=== PATIENT | female | born 1940 | race Caucasian/White ===

== ENCOUNTER 2022-08-05 22:45 | Emergency (ER) | payer MEDICARE ==
[2022-08-05] MEDS ORDERED: DIPH,PERTUS(ACELL)TETVAC-LF 0.5 ML VIAL IM ONE (22:50)
[2022-08-05] MEDS ORDERED: SODIUM CHLORIDE 0.9% 1,000 ML IV STA (22:53)
[2022-08-05] MEDS ORDERED: MORPHINE SULFATE 4 MG/ML SYRINGE IVP STA (23:25)
[2022-08-05 23:30] LABS: ALT 32 U/L (4-34); AST 134 U/L (14-36); African American GFR (CKD) >90 (>60 ml/min/1.73 sqM); Albumin 4.7 g/dL (3.5-5.0); Alcohol <10 mg/dL; Alkaline Phosphatase 77 U/L (38-126); Anion Gap 6 mmol/L; Blood Urea Nitrogen 35 mg/dL (7-17); Calcium 9.2 mg/dL (8.4-10.2); Carbon Dioxide 20 mmol/L (22-30); Chloride 114 mmol/L (98-107); Glucose 124 mg/dL (74-99); Non-African American GFR(CKD) 82 (>60 ml/min/1.73 sqM); Sodium 140 mmol/L (137-145); Total Bilirubin 3.2 mg/dL (0.2-1.3); Total Protein 8.7 g/dL (6.3-8.2)
[2022-08-05 23:31] LABS: Basophils % (A) 1 %; Eosinophils # (A) 0.2 k/uL (0-0.7); Eosinophils % (A) 3 %; HCT 40.6 % (34.0-46.0); HGB 12.5 gm/dL (11.4-16.0); Hypochromasia Moderate; Lymphocytes # (A) 0.9 k/uL (1.0-4.8); Lymphocytes % (A) 18 %; MCH 29.3 pg (25.0-35.0); MCHC 30.8 g/dL (31.0-37.0); Mean Platelet Volume 9.2; Monocytes # (A) 0.4 k/uL (0-1.0); Monocytes % (A) 8 %; Neutrophils # (A) 3.5 k/uL (1.3-7.7); Neutrophils % (A) 67 %; Platelet Count 162 k/uL (150-450); RBC 4.27 m/uL (3.80-5.40); RDW 15.1 % (11.5-15.5); WBC 5.3 k/uL (3.8-10.6)
--- NOTE | 2022-08-06 00:09 | CT ---
EXAMINATION TYPE: CT brain ricardo wo con DATE OF EXAM: 08/05/2022 COMPARISON: None HISTORY: Fall, Priority 2. CT DLP: 962.8 mGycm Automated exposure control for dose reduction was used. Images obtained of the brain and cervical spine with no contrast. There is cerebral cortical atrophy. There is no mass effect or midline shift. No sign of intracranial hemorrhage. There is mild patchy hypodensity in the periventricular white matter. The calvarium is i ntact. Skull base is intact. There is normal aeration of the mastoid sinuses. The cervical vertebra have normal alignment. There is narrowing of C5-6 disc space with spurring. Pos terior orbits are intact. Facet joints are intact. Skull base is intact. 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 No evidence of cervical spine fracture. Cerebral atrophy and chronic small vessel ischemia. No acute intracranial abnormality. No hemorrhage.
[2022-08-06 00:13] LABS: INR 1.4 (<1.2); Partial Thromboplastin Time 26.1 sec (22.0-30.0); Prothrombin Time 14.5 sec (9.0-12.0)
--- NOTE | 2022-08-06 00:13 | CT ---
EXAMINATION TYPE: CT facial bones wo con DATE OF EXAM: 08/05/2022 COMPARISON: None HISTORY: Fall, Priority 2. CT DLP: 962.8 mGycm Automated exposure control for dose reduction was used. Images obtained from the bottom of the mandible to the top of the frontal sinuses without contrast. The mandibular ring is intact. Temporomandibular joints are intact. There are some soft tissue air bu bbles along the anterior right temporal bone in the subcutaneous tissues. The maxilla is intact. No evidence of orbital blowout fracture. The zygomatic arches are intact. No e vidence of retro-orbital mass. The nasal bone is intact. There is fairly normal aeration of the paran yohan sinuses. IMPRESSION: No fracture. There is right anterior temporal scalp soft tissue air that could relate to laceration. Normal paranasal sinuses.
--- NOTE | 2022-08-06 00:19 | CT ---
EXAMINATION TYPE: CT ChestAbdPelvis w con DATE OF EXAM: 08/05/2022 COMPARISON: None HISTORY: Fall, Priority 2. CT DLP: 1722.6 mGycm Automated exposure control for dose reduction was used. CONTRAST: Performed with IV Contrast, patient injected with 019ta80 mL of Isovue 300. Images obtained from the thoracic inlet to the floor of the pelvis with IV contrast. There is moderate bilateral pleural effusions and larger on the right side. Heart is enlarged. There is pericardial effusion. There are no hilar masses. No mediastinal adenopathy. Thoracic aorta is inta ct. No aneurysm or dissection. The ascending aorta measures 3.6 cm. No filling defects in the pulmona ry arteries. No pneumothorax. There is atelectasis in both lower lung duran adjacent to the pleural fluid. Liver and spleen are intact. No pancreatic mass. While this are not dilated. Gallbladder appears norm al. There is no adrenal mass. Kidneys show satisfactory contrast opacification. No hydronephrosis. Ureter s are not dilated. No retroperitoneal adenopathy. Bladder distends smoothly. No inguinal hernia. No f ree fluid in the pelvis. There is some retained fecal material in the rectum that measures 6 cm. Ther e are numerous diverticula in the sigmoid colon. There is extensive colonic diverticulosis. No mesenteric edema. No ascites or free air. No sign of a bowel obstruction. Thoracic and lumbar vertebra appear intact. No compression fracture. The bony pelvis is intact. The h ip joints are intact. Sacroiliac joints are intact. No evidence of rib fracture. The shoulder joints appear intact. IMPRESSION: Cardiomegaly with moderate sized pleural effusions and basilar atelectasis that is consistent with ch ronic congestive heart failure. No evidence of pulmonary embolism. No fracture seen. No acute abnormality in the abdomen and pelvis. There is extensive colonic diverticulosis without div erticulitis. Mild constipation.
--- NOTE | 2022-08-06 00:22 | CT ---
EXAMINATION TYPE: CT thor lumbar spine w con DATE OF EXAM: 08/05/2022 COMPARISON: None HISTORY: Fall, Priority 2. CT DLP: 1722.6 mGycm Automated exposure control for dose reduction was used. CONTRAST: Performed with IV Contrast, patient injected with 100ml mL of Isovue 300. Images obtained from T1 to S1 vertebra with the IV contrast. The thoracic and lumbar vertebra have fairly normal spacing and alignment for the patient's age. No c ompression fracture. No paraspinal mass. There is moderate bilateral pleural effusions. The posterior ribs appear intact. No focal bone destruction. No evidence of any significant thoracic or lumbar spi nal stenosis. The sacroiliac joints appear intact. There is some degenerative mild hypertrophic spurring anteriorly in the lumbar spine and thoracic spi ne. IMPRESSION: Negative exam. No evidence of traumatic injury of the thoracic and lumbar spine. No fracture..
--- NOTE | 2022-08-06 01:45 | XR ---
EXAMINATION TYPE: XR femur RT DATE OF EXAM: 08/06/2022 COMPARISON: NONE HISTORY: Fall. Pain TECHNIQUE: 4 views FINDINGS: There is no evidence of fracture nor dislocation. Hip joint and knee joint appear intact. N o pathologic calcification. IMPRESSION: Negative right femur exam.
--- NOTE | 2022-08-06 02:49 | ED ---
General Adult HPI - General Chief complaint: Fall Stated complaint: Fall Time Seen by Provider: 08/05/22 22:49 Source: EMS, RN notes reviewed, old records reviewed Mode of arrival: EMS Limitations: altered mental status - History of Present Illness Initial comments: Patient is an 81-year-old female with past medical history for atrial fibrillation on blood thinners, dementia who presents after being found down next to her bed. Patient fell approximately 1 foot above standing onto the ground. No obvious injuries other than some abrasions to her face. Patient cannot provide any history. She is moving all 4 extremities. Unknown loss of consciousness. Patient is currently at her baseline mental status per EMS and nursing facility. Presents for further evaluation at this time. - Related Data Allergies Allergy/AdvReac Type Severity Reaction Status Date / Time No Known Allergies Allergy Verified 08/06/22 02:10 Review of Systems ROS Statement: Those systems with pertinent positive or pertinent negative responses have been documented in the HPI. ROS Other: All systems not noted in ROS Statement are negative. General Exam - General Exam Comments Initial Comments: General: Appears in mild distress, agitated. HEAD: Abrasions over the face, forehead, scalp. Negative weiss sign. Negative raccoon eyes. EYES: PERRLA, EOMI, conjunctiva normal, no discharge. Pupils are 2 mm and equal bilaterally. ENT: Hearing grossly intact, normal oropharynx. RESPIRATORY: Clear breath sounds bilaterally. No wheezes, rales, or rhonchi. C/V: Regular rate and rhythm. S1 and S2 auscultated, no edema, peripheral pulses 2+ and intact throughout ABD: Abdomen is soft, nondistended. Patient jumps in pain when touched her in any spot on her abdomen. No rebound tenderness. No guarding. No peritoneal signs. EXT: Normal range of motion, no obvious deformity. Moving all 4 extremities. Possible shortening and primary tender over the right hip. No pelvis instability. No midline spinal step-offs or deformities. Patient jumps when you press anywhere on her body. SKIN: Facial and scalp abrasions. NEURO: Alert and oriented times times one to 2 which is her baseline. Moving all 4 extremity is. GCS of 15. No focal deficits. Limitations: altered mental status Course Vital Signs 08/05/22 08/06/22 08/06/22 22:45 00:25 00:30 Temperature 96.9 F L Pulse Rate 113 H 105 H 102 H Respiratory 26 H 10 L 7 L Rate Blood Pressure 159/117 160/111 160/111 O2 Sat by Pulse 90 L 94 L Oximetry 08/06/22 08/06/22 08/06/22 00:40 01:10 01:20 Temperature Pulse Rate 101 H 114 H 102 H Respiratory 14 12 16 Rate Blood Pressure 160/111 152/123 156/132 O2 Sat by Pulse 93 L 92 L Oximetry 08/06/22 08/06/22 08/06/22 01:30 01:40 01:50 Temperature Pulse Rate 106 H 105 H 98 Respiratory 12 15 14 Rate Blood Pressure 156/132 160/110 145/107 O2 Sat by Pulse 90 L 92 L 89 L Oximetry 08/06/22 08/06/22 08/06/22 02:00 02:10 02:20 Temperature Pulse Rate 91 93 95 Respiratory 16 15 13 Rate Blood Pressure 145/107 157/101 168/104 O2 Sat by Pulse 88 L 89 L 93 L Oximetry 08/06/22 08/06/22 08/06/22 02:30 02:33 03:48 Temperature 97 F L 97.3 F L Pulse Rate 87 86 Respiratory 14 16 Rate Blood Pressure 168/104 125/95 O2 Sat by Pulse 91 L 97 Oximetry Medical Decision Making - Medical Decision Making Based on the patient's presentation and physical exam, she was made a priority 2 trauma activation due to fall from above standing on blood thinners. Patient has dementia and is unable to provide any history. No obvious injuries other than some facial abrasions. Generalized tenderness to palpation everywhere with no/low suspicion for injury. We will obtain CT imaging of the patient's body as well as right femur x-ray. Trauma labs will be obtained. Vital signs are within acceptable limits. Patient is agitated at this time and will be given a IV analgesia, tdap and [address] Mackay, trauma telecommunication equipment repairer, immediately called back and was in agreement with the plan. EKG showed known atrial fibrillation. Laboratory studies were within acceptable limits. Troponin is undetectable. Urinalysis is still pending. CT head and cervical spine revealed no acute intracranial injury, no acute cervical spine injury. Face CT revealed no acute injury. CT of the chest, abdomen, pelvis revealed no acute injury. Thoracic and lumbar spine CTs revealed no acute injuries. Right femur x-ray is within normal limits. At this time, patient will be discharged back to her facility. No injuries from the fall. She is resting comfortably in bed. Vital signs remained within acceptable limits. I instructed the patient to follow up with their PCP in the next 1-3 days. I explained that the patient should return to the emergency department if they experience any worsening symptoms. Strict return precautions were discussed with the patient. The patient expressed understanding of these instructions. I answered all questions that the patient had. The patient was discharged home in good condition with their prescriptions and follow up information. Was pt. sent in by a medical professional or institution (, NUNU, ESTIMATING MANAGER, urgent care, hospital, or long term...) When possible be specific @ -assisted Did you speak to anyone other than the patient for history (EMS, parent, family, police, friend...)? What history was obtained from this source @ -EMS Did you review nursing and triage notes (agree or disagree)? Why? @ -I reviewed and agree with nursing and triage notes Were old charts reviewed (outside hosp., previous admission, EMS record, old EKG, old radiological studies, urgent care reports/EKG's, long term records)? Report findings @ -No old charts were reviewed Differential Diagnosis (chest pain, altered mental status, abdominal pain women, abdominal pain men, vaginal bleeding, weakness, fever, dyspnea, syncope, headache, dizziness, GI bleed, back pain, seizure, CVA, palpatations, mental health)? @ -Fall, kushal traumatic injury, intracranial injury, abrasions EKG interpreted by me (3pts min.). @ -As above X-rays interpreted by me (1pt min.). @ -Femur x-ray revealed no acute injury. CT interpreted by me (1pt min.). @ -CT imaging of the brain, C-spine, lumbar spine, thoracic spine, chest abdomen pelvis revealed no obvious acute traumatic process. U/S interpreted by me (1pt. min.). @ -None done What testing was considered but not performed or refused? (CT, X-rays, U/S, labs)? Why? @ -None What meds were considered but not given or refused? Why? @ -None Did you discuss the management of the patient with other professionals (professionals i.e. , PA, ESTIMATING MANAGER, lab, RT, psych nurse, social services director, principal systems architect, teacher, hearing officer, family service caseworker)? Give summary @ -No Was smoking cessation discussed for >3mins.? @ -No Was critical care preformed (if so, how long)? @ -Yes. 35 minutes. Were there social determinants of health that impacted care today? How? (Homelessness, low income, unemployed, alcoholism, drug addiction, transportation, low edu. Level, literacy, decrease access to med. care, long term, rehab)? @ -No Was there de-escalation of care discussed even if they declined (Discuss DNR or withdrawal of care, Hospice)? DNR status @ -No What co-morbidities impacted this encounter? (DM, HTN, Smoking, COPD, CAD, Cancer, CVA, ARF, Chemo, Hep., AIDS, mental health diagnosis, sleep apnea, morbid obesity)? @ -Dementia Was patient admitted / discharged? Hospital course, mention meds given and route, prescriptions, significant lab abnormalities, going to OR and other pertinent info. @ -Discharged back to her facility. Cipro 3 day course. Undiagnosed new problem with uncertain prognosis? @ -No Drug Therapy requiring intensive monitoring for toxicity (Heparin, Nitro, Insulin, Cardizem)? @ -No Were any procedures done? @ -No Diagnosis/symptom? @ -Fall on blood thinners Acute, or Chronic, or Acute on Chronic? @ -Acute Uncomplicated (without systemic symptoms) or Complicated (systemic symptoms)? @ -Uncomplicated Side effects of treatment? @ -No Exacerbation, Progression, or Severe Exacerbation? @ -No Poses a threat to life or bodily function? How? (Chest pain, USA, ID, pneumonia, PE, COPD, DKA, ARF, appy, cholecystitis, CVA, Diverticulitis, Homicidal, Suicidal, threat to staff... and all critical care pts) @ -Yes, can result in bleeding that can affect morbidity and mortality. Diagnosis/symptom? @ -Abrasions, scalp Acute, or Chronic, or Acute on Chronic? @ -Acute Uncomplicated (without systemic symptoms) or Complicated (systemic symptoms)? @ -Uncomplicated Side effects of treatment? @ -none Exacerbation, Progression, or Severe Exacerbation] @ -no Poses a threat to life or bodily function? @ -no Diagnosis/symptom? @ -Dementia Acute, or Chronic, or Acute on Chronic? @ -Chronic Uncomplicated (without systemic symptoms) or Complicated (systemic symptoms)? @ -Uncomplicated Side effects of treatment? @ -none Exacerbation, Progression, or Severe Exacerbation] @ -no Poses a threat to life or bodily function? @ -no Diagnosis/symptom? @ -History of atrial fibrillation Acute, or Chronic, or Acute on Chronic? @ -Chronic Uncomplicated (without systemic symptoms) or Complicated (systemic symptoms)? @ -Uncomplicated Side effects of treatment? @ -none Exacerbation, Progression, or Severe Exacerbation] @ -no Poses a threat to life or bodily function? @ -no - Lab Data Result diagrams: 08/05/22 23:00 08/05/22 23:00 Lab Results 08/05/22 08/05/22 08/05/22 Range/Units 23:00 23:00 23:00 WBC 5.3 (3.8-10.6) k/uL RBC 4.27 (3.80-5.40) m/uL Hgb 12.5 (11.4-16.0) gm/dL Hct 40.6 (34.0-46.0) % MCV 95.0 (80.0-100.0) fL MCH 29.3 (25.0-35.0) pg MCHC 30.8 L (31.0-37.0) g/dL RDW 15.1 (11.5-15.5) % Plt Count 162 (150-450) k/uL MPV 9.2 Neutrophils % 67 % Lymphocytes % 18 % Monocytes % 8 % Eosinophils % 3 % Basophils % 1 % Neutrophils # 3.5 (1.3-7.7) k/uL Lymphocytes # 0.9 L (1.0-4.8) k/uL Monocytes # 0.4 (0-1.0) k/uL Eosinophils # 0.2 (0-0.7) k/uL Basophils # 0.0 (0-0.2) k/uL Hypochromasia Moderate PT 14.5 H (9.0-12.0) sec INR 1.4 H (<1.2) APTT 26.1 (22.0-30.0) sec Sodium 140 (137-145) mmol/L Potassium (3.5-5.1) mmol/L Chloride 114 H (98-107) mmol/L Carbon Dioxide 20 L (22-30) mmol/L Anion Gap 6 mmol/L BUN 35 H (7-17) mg/dL Creatinine 0.68 (0.52-1.04) mg/dL Est GFR (CKD-EPI)AfAm >90 (>60 ml/min/1.73 sqM) Est GFR (CKD-EPI)NonAf 82 (>60 ml/min/1.73 sqM) Glucose 124 H (74-99) mg/dL Plasma Lactic Acid Umang (0.7-2.0) mmol/L Calcium 9.2 (8.4-10.2) mg/dL Total Bilirubin 3.2 H (0.2-1.3) mg/dL AST 134 H (14-36) U/L ALT 32 (4-34) U/L Alkaline Phosphatase 77 (38-126) U/L Troponin I (0.000-0.034) ng/mL Total Protein 8.7 H (6.3-8.2) g/dL Albumin 4.7 (3.5-5.0) g/dL Serum Alcohol <10 mg/dL 08/05/22 08/05/22 Range/Units 23:00 23:00 WBC (3.8-10.6) k/uL RBC (3.80-5.40) m/uL Hgb (11.4-16.0) gm/dL Hct (34.0-46.0) % MCV (80.0-100.0) fL MCH (25.0-35.0) pg MCHC (31.0-37.0) g/dL RDW (11.5-15.5) % Plt Count (150-450) k/uL MPV Neutrophils % % Lymphocytes % % Monocytes % % Eosinophils % % Basophils % % Neutrophils # (1.3-7.7) k/uL Lymphocytes # (1.0-4.8) k/uL Monocytes # (0-1.0) k/uL Eosinophils # (0-0.7) k/uL Basophils # (0-0.2) k/uL Hypochromasia PT (9.0-12.0) sec INR (<1.2) APTT (22.0-30.0) sec Sodium (137-145) mmol/L Potassium (3.5-5.1) mmol/L Chloride (98-107) mmol/L Carbon Dioxide (22-30) mmol/L Anion Gap mmol/L BUN (7-17) mg/dL Creatinine (0.52-1.04) mg/dL Est GFR (CKD-EPI)AfAm (>60 ml/min/1.73 sqM) Est GFR (CKD-EPI)NonAf (>60 ml/min/1.73 sqM) Glucose (74-99) mg/dL Plasma Lactic Acid Umang 1.3 (0.7-2.0) mmol/L Calcium (8.4-10.2) mg/dL Total Bilirubin (0.2-1.3) mg/dL AST (14-36) U/L ALT (4-34) U/L Alkaline Phosphatase (38-126) U/L Troponin I <0.012 (0.000-0.034) ng/mL Total Protein (6.3-8.2) g/dL Albumin (3.5-5.0) g/dL Serum Alcohol mg/dL - EKG Data -: EKG Interpreted by Me EKG Comments: 12-lead Electrocardiogram Interpretation Note EKG was reviewed and interpreted by myself. 12-lead ECG performed at 2254 is interpreted by me as revealing atrial fibrillation at a rate of 96 beats per minute. Elberta is rightward deviated. QRS duration is 86 seconds, QTC is 400 ms.. There were no acute ST or T wave abnormalities to suggest myocardial is chemia or injury. R wave progression across the precordium was satisfactory. By my interpretation this EKG is non-diagnostic for acute ischemia. No prior EKG for comparison. Critical Care Time Critical Care Time: Yes Total Critical Care Time: 35 Critical Care Time: Upon my evaluation, this patient had a high probability of imminent or life- threatening deterioration due to fall on blood thinners, priority 2 trauma activation, which required my direct attention, intervention, and personal management. I have personally provided 35 minutes of critical care time exclusive of time spent on separately billable procedures. Time includes review of laboratory data, radiology results, discussion with consultants, and monitoring for potential decompensation. Interventions were performed as documented in my note. Disposition Clinical Impression: Fall, Scalp abrasion, Dementia, History of atrial fibrillation Disposition: HOME SELF-CARE Condition: Good Instructions (If sedation given, give patient instructions): Fall Prevention for Older Adults (ED) Is patient prescribed a controlled substance at d/c from ED?: No Referrals: Kristi Moctezuma DO [Primary Care Provider] - 1-2 days Time of Disposition: 02:30
[2022-08-06 03:50] VITALS: BP 125/95; PULSE 86; RESP 16; TEMP 97.3
== END 2022-08-06 05:05 | disposition home or self-care (01) ==
LOC: EC 22:45
DX: S00.01XA Abrasion of scalp, initial encounter (principal); F03.90 Unspecified dementia, unspecified severity, without behavioral disturbance, psychotic disturbance, mood disturbance, and anxiety; I48.91 Unspecified atrial fibrillation; Z23 Encounter for immunization; W17.89XA Other fall from one level to another, initial encounter; Y92.009 Unspecified place in unspecified non-institutional (private) residence as the place of occurrence of the external cause
CPT/HCPCS: 99285 ×2; 90471 ×2; 96374 ×2; 96361 ×2; 36415; 93005; 80053; 83605; 84484; 85025; 85610; 85730; 73552; 72129; 72125; 72132; 70486; 70450; 71260; 74177; 90715; G0480; J2270; Q9967; 80320

== ENCOUNTER 2022-10-09 22:24 | Inpatient (IN) | payer MEDICARE, OTHER ==
[2022-10-09 23:03] LABS: Anisocytosis Slight; Basophils % (A) 1 %; Eosinophils # (A) 0.1 k/uL (0-0.7); Eosinophils % (A) 2 %; HCT 42.9 % (34.0-46.0); HGB 13.1 gm/dL (11.4-16.0); Hypochromasia Moderate; Lymphocytes # (A) 0.7 k/uL (1.0-4.8); Lymphocytes % (A) 14 %; MCH 27.5 pg (25.0-35.0); MCHC 30.6 g/dL (31.0-37.0); MCV 89.8 fL (80.0-100.0); Mean Platelet Volume 8.6; Monocytes # (A) 0.5 k/uL (0-1.0); Monocytes % (A) 9 %; Neutrophils % (A) 74 %; Platelet Count 185 k/uL (150-450); RBC 4.78 m/uL (3.80-5.40); RDW 16.4 % (11.5-15.5); WBC 5.4 k/uL (3.8-10.6)
[2022-10-09 23:17] LABS: Albumin 3.7 g/dL (3.5-5.0); Calcium 9.7 mg/dL (8.4-10.2); Potassium 3.6 mmol/L (3.5-5.1); Total Bilirubin 2.3 mg/dL (0.2-1.3); Total Protein 7.7 g/dL (6.3-8.2)
--- NOTE | 2022-10-09 23:20 | ED ---
General Adult HPI - General Chief complaint: Shortness of Breath Stated complaint: SOB Time Seen by Provider: 10/09/22 22:37 Source: EMS (report ), RN notes reviewed Mode of arrival: EMS Limitations: no limitations - History of Present Illness Initial comments: Patient is a 81-year-old female presented to the emergency room via EMS from [facility] for reports of hypoxemia at the facility with oxygen levels in the 60s. She received supplemental oxygen and breathing treatments at that facility with continued hypoxemia according to staff. Consequently EMS was contacted upon their arrival they report that she was satting approximately 94-95% on room air. Patient was ultimately still transported to the hospital for further evaluation. She has a baseline of altered mental status with severe dementia alert and orientated 0 with significant agitation. She is resistive to treatment and combative at times advising staff to "shut up and responding no when questions are asked. No evidence of distress is noted upon exam. In addition to her dementia with behavioral disturbance history she is past medical history significant for atrial fibrillation, CHF, hyperlipidemia, hypothyroidism, acute renal failure, and pneumonia. - Related Data Home Medications Medication Instructions Recorded Confirmed Apixaban [Eliquis] 5 mg PO BID@0800,199909/19/22 09/19/22 Aspirin EC [Ecotrin Low Dose] 81 mg PO DAILY@79909/19/22 09/19/22 Atorvastatin Calcium 20 mg PO HS@199909/19/22 09/19/22 Cholecalciferol [Vitamin D3 (25 50 mcg PO DAILY@79909/19/22 09/19/22 Mcg = 1000 Iu)] Cranberry Fruit Extract [Cranberry] 500 mg PO BID@799,199909/19/22 09/19/22 Ipratropium-Albuterol Nebulize 3 ml INHALATION RT-Q6H PRN 09/19/22 09/19/22 [Duoneb 0.5 mg-3 mg/3 ml Soln] Lactulose 20 gm PO DAILY@79909/19/22 09/19/22 Metoprolol Tartrate [Lopressor] 75 mg PO BID@0800,199909/19/22 09/19/22 Multivitamins, Thera [Multivitamin 1 tab PO DAILY@79909/19/22 09/19/22 (formulary)] Mupirocin 2% Oint [Bactroban 2% 1 applic TOPICAL TID@0800,1400,2200 09/19/22 09/19/22 Oint] QUEtiapine FUMARATE [SEROquel] 25 mg PO HS@199909/19/22 09/19/22 Sacubitril/Valsartan [Entresto 24 1 tab PO BID@0800,199909/19/22 09/19/22 mg-26 mg Tablet] bisacodyL [Dulcolax] 10 mg RECTAL DAILY@0800 09/19/22 09/19/22 Previous Rx's Medication Instructions Recorded Acetaminophen Tab [Tylenol] 325 mg PO Q6HR PRN tab 09/23/22 OLANZapine ODT [ZyPREXA Zydis] 2.5 mg PO Q8H PRN tab 09/23/22 Torsemide [Demadex] 20 mg PO DAILY tab 09/23/22 guaiFENesin [guaiFENesin ER] 600 mg PO BID@08,1999 PRN #0 09/23/22 risperiDONE [RisperDAL] 0.25 mg PO DAILY@1999 tab 09/23/22 Amiodarone [Cordarone] 200 mg PO BID 30 Days #60 tab 09/24/22 Amiodarone [Cordarone] 400 mg PO BID 7 Days #14 tablet 09/24/22 Allergies Allergy/AdvReac Type Severity Reaction Status Date / Time No Known Allergies Allergy Verified 09/19/22 18:40 Review of Systems ROS Statement: Those systems with pertinent positive or pertinent negative responses have been documented in the HPI. ROS Other: All systems not noted in ROS Statement are negative. Past Medical History Past Medical History: Atrial Fibrillation, Heart Failure, Dementia, Hyperlipidemia, Memory Impairment, Pneumonia, Renal Disease, Thyroid Disorder History of Any Multi-Drug Resistant Organisms: None Reported Past Psychological History: Schizoaffective Disorder Smoking Status: Unknown if ever smoked Past Alcohol Use History: None Reported Past Drug Use History: None Reported General Exam Limitations: altered mental status General appearance: alert, in no apparent distress Head exam: Present: atraumatic, normocephalic, normal inspection Eye exam: Present: other (Refuses to open eye) ENT exam: Present: normal exam, mucous membranes moist Neck exam: Present: normal inspection, full ROM Respiratory exam: Present: decreased breath sounds. Absent: respiratory distress, wheezes, rales, rhonchi, stridor, accessory muscle use Cardiovascular Exam: Present: tachycardia, irregular rhythm. Absent: systolic murmur, diastolic murmur, rubs, gallop GI/Abdominal exam: Present: soft, normal bowel sounds. Absent: distended, tenderness, guarding, rebound, rigid Extremities exam: Present: pedal edema (+1 bilaterally) Neurological exam: Present: alert, altered. Absent: oriented X3 Psychiatric exam: Present: agitated Skin exam: Present: erythema (Bilateral feet. Dressing intact to right foot dorsal aspect wound not assessed.) Course Vital Signs 10/09/22 22:31 Temperature 97.4 F L Pulse Rate 113 H Respiratory 18 Rate Blood Pressure 122/93 O2 Sat by Pulse 94 L Oximetry Medical Decision Making - Medical Decision Making Was pt. sent in by a medical professional or institution (, PA, DIRECTOR OF CASEWORK, urgent care, hospital, or long term...) When possible be specific @ -[facility] Did you speak to anyone other than the patient for history (EMS, parent, family, police, friend...)? What history was obtained from this source @ -EMS report reviewed Did you review nursing and triage notes (agree or disagree)? Why? @ -I reviewed and agree with nursing and triage notes Were old charts reviewed (outside hosp., previous admission, EMS record, old EKG, old radiological studies, urgent care reports/EKG's, long term records)? Report findings @ -Yes most recent hospital discharge summary reviewed from 09/24/2022 Differential Diagnosis (chest pain, altered mental status, abdominal pain women, abdominal pain men, vaginal bleeding, weakness, fever, dyspnea, syncope, headache, dizziness, GI bleed, back pain, seizure, CVA, palpatations, mental health, musculoskeletal)? @ -Differential Dyspnea: Coronary syndrome, arrhythmia, tamponade, asthma, COPD, pulmonary embolism, pneumonia, pneumothorax, pulmonary effusion, anaphylaxis, diabetic ketoacidosis, flailed chest, pulmonary contusion, diaphragmatic rupture, anemia, neuromuscular, this is not meant to be an all-inclusive list. EKG interpreted by me (3pts min.). @ -Atrial fibrillation with rapid ventricular response, ventricular rate 110 bpm, TX interval * ms, QRS duration 93 ms, QT/QTC 349/414 ms, PRT axes * ,111, - 87. X-rays interpreted by me (1pt min.). @ -Chest x-ray one-view: Vascular congestion noted throughout right lobe throughout, right lower lobe consolidation. Patchy infiltrate left lower lobe. CT interpreted by me (1pt min.). @ -None done U/S interpreted by me (1pt. min.). @ -None done What testing was considered but not performed or refused? (CT, X-rays, U/S, labs)? Why? @ -None What meds were considered but not given or refused? Why? @ -None Did you discuss the management of the patient with other professionals (professionals i.e. Dr., PA, DIRECTOR OF CASEWORK, lab, RT, psych nurse, social sciences lecturer, tax lawyer, teacher, occupational health and safety officer, case maker)? Give summary @ -Yes, spoke with Uriel Mack on-call for [facility] is accepting of observation admission for further evaluation and treatment of hypoxemia and acute renal failure. No further orders at this time. Was smoking cessation discussed for >3mins.? @ -No Was critical care preformed (if so, how long)? @ -No Were there social determinants of health that impacted care today? How? (Homelessness, low income, unemployed, alcoholism, drug addiction, transportation, low edu. Level, literacy, decrease access to med. care, group home, rehab)? @ -No Was there de-escalation of care discussed even if they declined (Discuss DNR or withdrawal of care, Hospice)? DNR status @ -No What co-morbidities impacted this encounter? (DM, HTN, Smoking, COPD, CAD, Cancer, CVA, ARF, Chemo, Hep., AIDS, mental health diagnosis, sleep apnea, morbid obesity)? @ -CHF history and dementia baseline Was patient admitted / discharged? Hospital course, mention meds given and route, prescriptions, significant lab abnormalities, going to OR and other pertinent info. @ -81-year-old female presenting to the emergency room from her long term via EMS with concerns of hypoxia at the long term. Upon arrival EMS reports no hypoxemia noted. Upon arrival to the emergency room no hypoxemia still noted. Patient with mild tachycardia however she is very agitated. Will start minimal workup for dyspnea with EKG, chest x-ray, CBC, CMP along with urinalysis. No indication for any medication administration at this time. Laboratory study workup reveals a CBC overall stable low lymphocyte is 0.7 noted, CMP with elevated carbon dioxide level at 35 likely secondary to overall she may show a long term also acute renal failure with a BUN of 36 and creatinine of 1.5 by likely due to overdiuresis secondary to Demadex prescription the setting of CHF. Glucose elevated 119 alkaline phosphatase slightly elevated 152 AST AST normal bilirubin elevated 2.3 but chronically elevated sodium and potassium normal. Will add proBNP. In the setting of CHF will await chest x-ray results prior to giving any IV hydration. Continued with mild tachycardia 1 teens to 120s with moderate agitation will give IM Zyprexa as previously administered for agitation and her dementia status. Due to patient's agitation will change chest x-ray from two-view to one view. Chest x-ray as above. Given chest x-ray and AKA I will defer diuresis and hydration at this time. Will add separate swab. Spoke with Uriel Mack on-call [facility] recommending an observation admission for further monitoring for hypoxemia and evaluation and treatment of acute renal failure. He is accepting of visit admission and declines any other orders at this time. Will admit patient in stable condition to observation unit under E services for further evaluation and treatment for hypoxemia and acute renal failure. Undiagnosed new problem with uncertain prognosis? @ -No Drug Therapy requiring intensive monitoring for toxicity (Heparin, Nitro, Insulin, Cardizem)? @ -No Were any procedures done? @ -No Diagnosis/symptom? @ -Acute renal failure Acute, or Chronic, or Acute on Chronic? @ -Acute Uncomplicated (without systemic symptoms) or Complicated (systemic symptoms)? @ -Complicated Side effects of treatment? @ -No Exacerbation, Progression, or Severe Exacerbation? @ -No Poses a threat to life or bodily function? How? (Chest pain, [place], [place], pneumonia, PE, COPD, DKA, ARF, appy, cholecystitis, CVA, Diverticulitis, Homicidal, Suicidal, threat to staff... and all critical care pts) @ -Yes high risk for further renal failure and uremia. Case discussed with Dr. Camacho. - Lab Data Result diagrams: 10/09/22 22:52 10/09/22 22:52 Lab Results 10/09/22 10/09/22 10/09/22 Range/Units 22:52 22:52 23:12 WBC 5.4 (3.8-10.6) k/uL RBC 4.78 (3.80-5.40) m/uL Hgb 13.1 (11.4-16.0) gm/dL Hct 42.9 (34.0-46.0) % MCV 89.8 (80.0-100.0) fL MCH 27.5 (25.0-35.0) pg MCHC 30.6 L (31.0-37.0) g/dL RDW 16.4 H (11.5-15.5) % Plt Count 185 (150-450) k/uL MPV 8.6 Neutrophils % 74 % Lymphocytes % 14 % Monocytes % 9 % Eosinophils % 2 % Basophils % 1 % Neutrophils # 4.0 (1.3-7.7) k/uL Lymphocytes # 0.7 L (1.0-4.8) k/uL Monocytes # 0.5 (0-1.0) k/uL Eosinophils # 0.1 (0-0.7) k/uL Basophils # 0.0 (0-0.2) k/uL Hypochromasia Moderate Anisocytosis Slight Sodium 145 (137-145) mmol/L Potassium 3.6 (3.5-5.1) mmol/L Chloride 102 (98-107) mmol/L Carbon Dioxide 35 H (22-30) mmol/L Anion Gap 8 mmol/L BUN 36 H (7-17) mg/dL Creatinine 1.55 H (0.52-1.04) mg/dL Est GFR (CKD-EPI)AfAm 36 (>60 ml/min/1.73 sqM) Est GFR (CKD-EPI)NonAf 31 (>60 ml/min/1.73 sqM) Glucose 119 H (74-99) mg/dL Calcium 9.7 (8.4-10.2) mg/dL Total Bilirubin 2.3 H (0.2-1.3) mg/dL AST 31 (14-36) U/L ALT 27 (4-34) U/L Alkaline Phosphatase 152 H (38-126) U/L Total Protein 7.7 (6.3-8.2) g/dL Albumin 3.7 (3.5-5.0) g/dL Urine Color Yellow Urine Appearance Turbid H (Clear) Urine pH 5.0 (5.0-8.0) Ur Specific [place] 1.019 (1.001-1.035) Urine Protein Negative (Negative) Urine Glucose (UA) Negative (Negative) Urine Ketones Negative (Negative) Urine Blood Negative (Negative) Urine Nitrite Negative (Negative) Urine Bilirubin Negative (Negative) Urine Urobilinogen 2.0 (<2.0) mg/dL Ur Leukocyte Esterase Negative (Negative) Urine RBC 0 (0-5) /hpf Urine WBC 0 (0-5) /hpf Urine WBC Clumps 0 (None) /hpf Ur Squamous Epith Cells 3 (0-4) /hpf Ur Transition Epith Cell 0 (0-1) /hpf Ur Renal Epithelial Cell 0 (0) /hpf Calcium Carbonate Cryst 0 (None) /hpf Calcium Phosphate Cryst 0 (None) /hpf Calcium Oxalate Crystal 0 (None) /hpf Leucine Crystals 0 (None) /hpf Cystine Crystals 0 (None Seen) /hpf Uric Acid Crystals 0 (None) /hpf Triple Phos Crystals 0 (None) /hpf Tyrosine Crystals 0 (None) /hpf Other Crystals 0 (None) /hpf Amorphous Sediment 0 (None) /hpf Urine Bacteria Many H (None) /hpf Cellular Casts 0 (0) /lpf Epithelial Casts 0 (0) /lpf Fatty Casts 0 (0) /lpf Hyaline Casts 24 H (0-2) /lpf Granular Casts 0 (0) /lpf Waxy Casts 0 (0) /lpf Broad Casts 0 (0) /lpf RBC Casts 0 (0) /lpf WBC Casts 0 (0) /lpf Other Casts 0 (0) /lpf Urine Mucus Rare H (None) /hpf Urine Trichomonas 0 (None) /hpf Ur Yeast w Hyphae 0 (None) /hpf Urine Yeast (Budding) 0 (None) /hpf Ur Oval Fat Bodies 0 (None) /hpf - Radiology Data Radiology results: image reviewed Disposition Clinical Impression: KARUNA (acute kidney injury) Disposition: ADMITTED IP TO THIS [facility] Condition: Stable Referrals: Nonstaff,Physician [Primary Care Provider] - 1-2 days Time of Disposition: 23:58
[2022-10-09 23:34] LABS: Appearance,Urine Turbid (Clear); Color,Urine Yellow; Protein,Urine Negative (Negative); Specific Gravity,Urine 1.019 (1.001-1.035)
[2022-10-09 23:35] LABS: Bilirubin,Urine Negative (Negative); Blood,Urine Negative (Negative); Glucose,Urine (UA) Negative (Negative); Ketones,Urine Negative (Negative); Leukocyte Esterase,Urine Negative (Negative); Nitrite,Urine Negative (Negative)
[2022-10-09 23:36] LABS: Amorphous Sediment,Urine 0 /hpf; Calcium Carbonate Crystals,Ur 0 /hpf; Calcium Oxalate Crystals,Urine 0 /hpf; Calcium Phosphate Crystals,Ur 0 /hpf; Cystine Crystals,Urine 0 /hpf (None Seen); Leucine Crystal, Urine 0 /hpf; Other Crystals,Urine 0 /hpf; RBC,Urine 0 /hpf (0-5); Renal Epithelial Cells,Urine 0 /hpf (0); Squamous Epithelial Cell,Urine 3 /hpf (0-4); Transitional Epi Cells,Urine 0 /hpf (0-1); Triple Phosphate Crystal,Urine 0 /hpf; Tyrosine Crystal,Urine 0 /hpf; Uric Acid Crystals,Urine 0 /hpf; WBC,Urine 0 /hpf (0-5)
[2022-10-09 23:37] LABS: Bacteria,Urine Many /hpf; Broad Casts,Urine 0 /lpf (0); Budding Yeast,Urine 0 /hpf; Cellular Casts,Urine 0 /lpf (0); Epithelial Cell Casts,Urine 0 /lpf (0); Fatty Casts,Urine 0 /lpf (0); Granular Casts,Urine 0 /lpf (0); Hyaline Casts,Urine 24 /lpf (0-2); Hyphae Yeast, Urine 0 /hpf; Mucus,Urine Rare /hpf; Other Casts,Urine 0 /lpf (0); Oval Fat Bodies,Urine 0 /hpf; Red Blood Cell Casts,Urine 0 /lpf (0); Sperm,Urine 0 /hpf; Trichomonas,Urine 0 /hpf; Waxy Casts,Urine 0 /lpf (0); White Blood Cell Casts,Urine 0 /lpf (0)
[2022-10-09] MEDS ORDERED: OLANZapine 10 MG VIAL IM STA (23:38)
--- NOTE | 2022-10-10 00:21 | XR ---
EXAMINATION TYPE: XR chest 1V DATE OF EXAM: 10/09/2022 COMPARISON: 09/23/2022 HISTORY: Short of breath TECHNIQUE: FINDINGS: Heart is enlarged. There is some pulmonary vascular congestion. There is blunting of the costophrenic angles and more on the right side. There are chest leads. IMPRESSION: Congestive heart failure increasing congestion and pleural fluid compared to old exam.
[2022-10-10] MEDS ORDERED: NALOXONE 0.4 MG/ML 1 ML VIAL IV PRN (02:00)
[2022-10-10] MEDS ORDERED: OLANZapine ODT 5 MG TAB PO PRN (02:12)
[2022-10-10] MEDS ORDERED: IPRATROPIUM-ALBUTEROL 3 ML NEB INHALATION PRN (02:12)
[2022-10-10] MEDS ORDERED: METOPROLOL TARTRATE 5 MG/5 ML VIAL IVP STA (02:14)
[2022-10-10] MEDS ORDERED: HALOPERIDOL LACTATE 5 MG/ML 1 ML VIAL IVP STA (03:27)
[2022-10-10] MEDS ORDERED: AMIODARONE 400 MG PO SCH (09:00)
[2022-10-10] MEDS ORDERED: TORSEMIDE 20 MG TAB PO SCH (09:00)
[2022-10-10] MEDS: APIXABAN 5 MG TAB PO SCH ×2 (10:19→20:13)
[2022-10-10] MEDS: AMIODARONE 200 MG TAB PO SCH ×2 (10:19→20:12)
[2022-10-10] MEDS: ASPIRIN 81 MG PO SCH (10:19)
[2022-10-10] MEDS: LACTULOSE 20 GM/30 ML CUP PO SCH (10:19)
[2022-10-10] MEDS: SACUBITRIL/VALSARTAN 24 MG-26 MG TABLET PO SCH ×2 (10:20→20:14)
[2022-10-10] MEDS: METOPROLOL TARTRATE 25 MG TAB PO SCH ×2 (10:20→20:13)
[2022-10-10] MEDS: FUROSEMIDE 10 MG/ML 4 ML VIAL IV SCH ×2 (14:35→21:36)
--- NOTE | 2022-10-10 15:18 | P.CONS ---
History of Present Illness - Reason for Consult Consult date: 10/10/22 goals of care Requesting physician: Rolf Amos - Chief Complaint Shortness of breath - History of Present Illness Patient is 81-year-old female with a past medical history of atrial fibrillation, congestive heart failure, dementia, and hyperlipidemia. The patient is a resident of [facility] in [place]. There were reports of hypoxemia at the facility with a SpO2 of 60%. She received supplemental oxygen and breathing treatments at the facility. When EMS arrived they report that she was satting approximately 94-95% on room air. She was transported to the emergency department for further evaluation. The patient is confused and agitated requiring Zyprexa in the ED. Work up included an EKG which showed A.fib with RVR with a rate of 110bpm, a CXR which revealed congestive heart failure increasing congestion and pleural fluid compared to old exam. Review of Systems ROS unobtainable: due to mental status Past Medical History Past Medical History: Atrial Fibrillation, Heart Failure, Dementia, Hyperlipidemia, Memory Impairment, Pneumonia, Renal Disease, Thyroid Disorder History of Any Multi-Drug Resistant Organisms: None Reported Past Psychological History: Schizoaffective Disorder Smoking Status: Unknown if ever smoked Past Alcohol Use History: None Reported Past Drug Use History: None Reported Medications and Allergies Home Medications Medication Instructions Recorded Confirmed Type Apixaban [Eliquis] 5 mg PO BID 09/19/22 10/10/22 History Aspirin EC [Ecotrin Low Dose] 81 mg PO DAILY 09/19/22 10/10/22 History Atorvastatin Calcium 20 mg PO HS 09/19/22 10/10/22 History Cholecalciferol [Vitamin D3 (25 25 mcg PO DAILY 09/19/22 10/10/22 History Mcg = 1000 Iu)] Cranberry Fruit Extract [Cranberry] 500 mg PO BID 09/19/22 10/10/22 History Ipratropium-Albuterol Nebulize 3 ml INHALATION RT-TID 09/19/22 10/10/22 History [Duoneb 0.5 mg-3 mg/3 ml Soln] Lactulose 20 gm PO DAILY 09/19/22 10/10/22 History Mupirocin 2% Oint [Bactroban 2% 1 applic TOPICAL TID 09/19/22 10/10/22 History Oint] Sacubitril/Valsartan [Entresto 24 2 tab PO BID 09/19/22 10/10/22 History mg-26 mg Tablet] Acetaminophen Tab [Tylenol] 325 mg PO Q6HR PRN tab 09/23/22 10/10/22 Rx Torsemide [Demadex] 20 mg PO DAILY tab 09/23/22 10/10/22 Rx Amiodarone [Cordarone] 200 mg PO HS 10/10/22 10/10/22 History Famotidine [Pepcid] 20 mg PO BID 10/10/22 10/10/22 History LORazepam [Ativan] 0.5 mg PO Q6H PRN 10/10/22 10/10/22 History Metoprolol Tartrate [Lopressor] 50 mg PO Q12H 10/10/22 10/10/22 History Mirtazapine [Remeron] 15 mg PO HS 10/10/22 10/10/22 History Pyridoxine HCl (Vitamin B6) 100 mg PO DAILY 10/10/22 10/10/22 History [Vitamin B-6] risperiDONE [RisperDAL] 0.25 mg PO BID 10/10/22 10/10/22 History Allergies Allergy/AdvReac Type Severity Reaction Status Date / Time No Known Allergies Allergy Verified 10/10/22 07:12 Physical Exam Vitals: Vital Signs Temp Pulse Resp BP Pulse Ox 10/10/22 11:16 97 10/10/22 11:00 99 16 116/83 97 10/10/22 09:00 102 H 16 125/84 10/10/22 07:39 97 10/10/22 06:21 118 H 16 105/90 97 10/10/22 02:17 121/89 10/10/22 01:43 124 H 94 L 10/10/22 00:03 113 H 18 91 L 10/09/22 22:31 97.4 F L 113 H 18 122/93 94 L Intake and Output 10/09/22 10/10/22 10/10/22 22:59 06:59 14:59 Other: Weight 72.575 kg General: Well developed, well nourished. No acute distress. Chronically ill appearing HEENT: Head is atraumatic, normocephalic. Lungs: Respirations even and nonlabored. On 2L NC Abdomen/GI: Soft, nondistended, nontender. : No suprapubic tenderness. Musculoskeletal/ Extremities: No joint deformity or swelling. No contractures or gross atrophy. + generalized weakness Skin: Warm and dry Neurologic: Sleeping Results CBC & Chem 7: 10/09/22 22:52 10/09/22 22:52 Labs: Abnormal Lab Results - Last 24 Hours (Table) 10/09/22 10/09/22 10/09/22 Range/Units 22:52 22:52 23:12 MCHC 30.6 L (31.0-37.0) g/dL RDW 16.4 H (11.5-15.5) % Lymphocytes # 0.7 L (1.0-4.8) k/uL Carbon Dioxide 35 H (22-30) mmol/L BUN 36 H (7-17) mg/dL Creatinine 1.55 H (0.52-1.04) mg/dL Glucose 119 H (74-99) mg/dL Total Bilirubin 2.3 H (0.2-1.3) mg/dL Alkaline Phosphatase 152 H (38-126) U/L Urine Appearance Turbid H (Clear) Urine Bacteria Many H (None) /hpf Hyaline Casts 24 H (0-2) /lpf Urine Mucus Rare H (None) /hpf Chest x-ray: report reviewed Assessment and Plan Assessment: Social * Occupation - retired * Marital status - * Children/grandchildren - 2 adult sons * Residence - [facility] Functional Assessment * Able to walk independently - No * Assistive devices - walker * Able to use the bathroom independently - no * Continent - no * Require assistance bathing- yes * Able to feed self - yes * Who prepares meals - [employer] * Who manages medications - [employer] * Who manages finances - Son PPS score - 30% Psychological/Emotional * Dementia present - Yes, advanced * Insight and judgment - Not intact * Depression - JUANITA * Suicidal thoughts - JUANITA * Frequent hospitalizations - yes * Desire to keep coming back to the hospital for treatment - JUANITA Symptoms * Pain - CPOT 0 * SOB - No distress noted, on 2L NC, continue Rochepin and Duoneb * N/V - JUANITA * Confusion - yes * Agitation - yes, continue Zyprexa and Seroquel * Hallucinations - No * Appetite/weight loss - JUANITA * Dysphagia -JUANITA * Constipation - * Incontinence - Yes, has brief on * Itch - JUANITA * Cough - JUANITA Plan: Summary/Goals - The patient was examined in the emergency department. The staff had administered antipsychotics for agitation. The patient is resting with her eyes closed. Spoke with the patient's son, Fab, via telephone. He is currently in [place] for a week. His son Domingo, lives near the hospital. He'll states that his mother is normally very pleasant to be around. He stated that 2 weeks ago he was visiting and they had a good conversation and even laughed a lot. He states that she has had frequent hospitalizations recently for UTIs and her CHF. He states that whenever she gets a UTI she gets confused, combative, and even hallucinates. He states she has always gotten UTI's even when she lived at home. However, they have become more frequent. It makes it hard to see his mom confused and combative. It was clarified that the patient was brought in for evaluation of hypocia. Her urinalysis is negative. She does not have a UTI. She is having a CHF exacerbation and a possible pneumonia. He was reassured that she is receiving antibiotics and she is only on 2L NC right now. He also states that her functionality has declined over the last month. She previously used a walker, but she got to weak and started falling. She is mostly bed bound now. Information regarding palliative care and hospice philosophies and services was provided. Voiced concern that the patient's dementia seems to be progressing. He has not talked with her about what her end of life wished may be. He is hopeful her mentation will improve. He would like to wait and see if she improves before making any decisions. Code status discussed in detail. He wishes to make her a DNR. Recommendations - Hospice Advanced Directives - None on file Code Status - Patient is now a DNR Thank you for this consultation Aicha Hawkins [email or web address] [id number] Email: [email or web address]
[2022-10-10] MEDS ORDERED: HYDROmorphone 0.5 MG/0.5 ML SYRINGE IVP STA (18:50)
[2022-10-10] MEDS: ATORVASTATIN 20 MG TAB PO SCH (20:13)
[2022-10-10] MEDS: QUEtiapine 25 MG TAB PO SCH (20:13)
[2022-10-10] MEDS: risperiDONE 0.25 MG TAB PO SCH (20:14)
--- NOTE | 2022-10-11 02:25 | HP ---
HISTORY AND PHYSICAL CHIEF COMPLAINT: Change in mental status. HISTORY OF PRESENT ILLNESS: This is an 81-year-old woman with a past medical history of multiple medical problems including dementia, who is the [facility] resident, was admitted with some shortness of breath and hypoxemia. The patient also had some change in mental status. The patient was given breathing treatments. The patient also had acute kidney injury and the patient was admitted for further evaluation and treatment. The chest x-ray on admission showed some CHF also. The patient was admitted for further evaluation and treatment. A detailed history cannot be taken from the patient. The patient is basically unresponsive review of chart at this time. PAST MEDICAL HISTORY: Reviewed include dementia. The rest of the history and rest of the chart is also reviewed. HOME MEDICATIONS: Reviewed include Risperdal. Dose and rest of medication noted. ALLERGIES: None. FAMILY HISTORY: Could not be taken because of change in mental status. SOCIAL HISTORY: Could not be taken because of change in mental status. REVIEW OF SYSTEMS: Could not be taken because of change in mental status. PHYSICAL EXAMINATION: VITAL SIGNS: Pulse n, respirations 16. HEENT: The lips are blue, cyanotic. NECK: No jugular venous distention. CARDIOVASCULAR: S1, S2. RESPIRATORY: Bilateral scattered rhonchi and crackles. ABDOMEN: Soft, obese. LEGS: No edema. No swelling. NERVOUS SYSTEM: Could not be examined. SKIN: No ulcer, rash or bleeding. JOINTS: No active deforming arthropathy. LABORATORY DATA: Reviewed. ASSESSMENT: 1. Congestive heart failure, acute exacerbation with acute hypoxic respiratory failure, present on admission. 2. Change in mental status, metabolic encephalopathy, multifactorial. 3. History of dementia. 4. Atrial fibrillation. hyperlipidemia. 6. History of memory impairment. RECOMMENDATIONS: 1. This is an 81-year-old woman who presented with multiple complex medical issues, we will monitor the patient closely. I would recommend cautious IV diuretics. Empiric antibiotics have been initiated. 2. Possible sepsis from urinary tract infection. Otherwise, continue to monitor. See orders for details. Prognosis guarded. The patient is currently full code. We will have discussion with the family regarding no code and possible palliative care also. Further recommendations to follow. MMODL / IJN: [id number] / MTDD
[2022-10-11 07:45] LABS: African American GFR (CKD) 55 (>60 ml/min/1.73 sqM); Anion Gap 6 mmol/L; Blood Urea Nitrogen 31 mg/dL (7-17); Carbon Dioxide 33 mmol/L (22-30); Chloride 108 mmol/L (98-107); Glucose 73 mg/dL (74-99); Non-African American GFR(CKD) 48 (>60 ml/min/1.73 sqM); Sodium 147 mmol/L (137-145)
[2022-10-11 08:07] LABS: Potassium 4.1 mmol/L (3.5-5.1)
[2022-10-11] MEDS ORDERED: IPRATROPIUM 0.5 MG/2.5 ML NEBU INHALATION PRN (08:08)
[2022-10-11] MEDS ORDERED: ALBUTEROL NEBULIZED 2.5 MG/3 ML INHALATION PRN (08:08)
[2022-10-11] MEDS: METOPROLOL TARTRATE 25 MG TAB PO SCH ×2 (08:51→21:21)
[2022-10-11] MEDS: SACUBITRIL/VALSARTAN 24 MG-26 MG TABLET PO SCH ×2 (08:51→21:22)
[2022-10-11] MEDS: LACTULOSE 20 GM/30 ML CUP PO SCH (08:51)
[2022-10-11] MEDS: AMIODARONE 200 MG TAB PO SCH ×2 (08:51→21:11)
[2022-10-11] MEDS: APIXABAN 5 MG TAB PO SCH ×2 (08:51→21:12)
[2022-10-11] MEDS: ASPIRIN 81 MG PO SCH (08:51)
[2022-10-11] MEDS: FUROSEMIDE 10 MG/ML 4 ML VIAL IV SCH ×2 (08:52→21:12)
--- NOTE | 2022-10-11 11:58 | P.CRDCN ---
History of Present Illness Consult date: 10/11/22 Chief complaint: Congestive heart failure History of present illness: The patient is an 79-year-old female patient with extensive cardiovascular history consistent off cardiomyopathy with the echo from 2022 showing an EF around 40% as well as valvular heart disease was known mitral and tricuspid regurgitation and moderate pulmonary hypertension as well as permanent atrial fibrillation currently on oral anticoagulation as well as hypertension and dyslipidemia and also history of severe underlying dementia. Currently the patient is residing at [facility]. The patient almost nonverbal. We asked to see the patient in a consultation regarding congestive heart failure. Apparently the patient was noted to be hypoxic at the [facility] was oxygen saturation has been as low as 60s. She was requiring more oxygen. For that reason she was brought to the hospital for further evaluation. She was hypoxic in the emergency department but her oxygen saturation was somewhat slightly better after she was placed on 4 L oxygen. No indication that she was experiencing any symptoms of chest pain or chest discomfort. She was more short of breath. She was also having more of bilateral lower extremity edema. The patient underwent further evaluation here in the emergency department including EKG showing atrial fibrillation and she is known to have permanent nature fibrillation and she is on oral anticoagulation. Also she underwent a chest x-ray showed findings consistent with CHF. The patient was placed on Lasix IV. On examination she does have stable vital signs but she has severe bilateral lower extremity edema and chronic skin changes and possible underlying cellulitis and also she has diminished breathing sounds bilaterally with irregular rhythm. The patient was nonverbal. Assessment Heart failure exacerbation secondary to heart failure with reduced ejection fraction was evidence of right and left failure Permanent in nature fibrillation with controlled heart rate Cardiomyopathy with EF around 40% Valvular heart disease was mitral and tricuspid regurgitation Severe underlying dementia Multiple comorbid conditions Plan No need to repeat the echo in the light of recent echocardiogram Continue the current dose of Lasix IV Continue monitoring the kidney function and electrolytes Follow-up with the patient Past Medical History Past Medical History: Atrial Fibrillation, Heart Failure, Dementia, Hyperlipidemia, Memory Impairment, Pneumonia, Renal Disease, Thyroid Disorder History of Any Multi-Drug Resistant Organisms: None Reported Past Surgical History: Unable to Obtain Past Anesthesia/Blood Transfusion Reactions: Unable to Obtain Past Psychological History: Schizoaffective Disorder Smoking Status: Unknown if ever smoked Past Alcohol Use History: None Reported Past Drug Use History: None Reported Medications and Allergies Home Medications Medication Instructions Recorded Confirmed Type Apixaban [Eliquis] 5 mg PO BID 09/19/22 10/10/22 History Aspirin EC [Ecotrin Low Dose] 81 mg PO DAILY 09/19/22 10/10/22 History Atorvastatin Calcium 20 mg PO HS 09/19/22 10/10/22 History Cholecalciferol [Vitamin D3 (25 25 mcg PO DAILY 09/19/22 10/10/22 History Mcg = 1000 Iu)] Cranberry Fruit Extract [Cranberry] 500 mg PO BID 09/19/22 10/10/22 History Ipratropium-Albuterol Nebulize 3 ml INHALATION RT-TID 09/19/22 10/10/22 History [Duoneb 0.5 mg-3 mg/3 ml Soln] Lactulose 20 gm PO DAILY 09/19/22 10/10/22 History Mupirocin 2% Oint [Bactroban 2% 1 applic TOPICAL TID 09/19/22 10/10/22 History Oint] Sacubitril/Valsartan [Entresto 24 2 tab PO BID 09/19/22 10/10/22 History mg-26 mg Tablet] Acetaminophen Tab [Tylenol] 325 mg PO Q6HR PRN tab 09/23/22 10/10/22 Rx Torsemide [Demadex] 20 mg PO DAILY tab 09/23/22 10/10/22 Rx Amiodarone [Cordarone] 200 mg PO HS 10/10/22 10/10/22 History Famotidine [Pepcid] 20 mg PO BID 10/10/22 10/10/22 History LORazepam [Ativan] 0.5 mg PO Q6H PRN 10/10/22 10/10/22 History Metoprolol Tartrate [Lopressor] 50 mg PO Q12H 10/10/22 10/10/22 History Mirtazapine [Remeron] 15 mg PO HS 10/10/22 10/10/22 History Pyridoxine HCl (Vitamin B6) 100 mg PO DAILY 10/10/22 10/10/22 History [Vitamin B-6] risperiDONE [RisperDAL] 0.25 mg PO BID 10/10/22 10/10/22 History Allergies Allergy/AdvReac Type Severity Reaction Status Date / Time No Known Allergies Allergy Verified 10/10/22 07:12 Physical Exam Vitals: Vital Signs Temp Pulse Pulse Resp BP BP Pulse Ox 03/25/23 08:00 97.7 F 57 L 18 116/87 95 10/11/22 01:33 98.0 F 77 16 102/71 96 10/10/22 22:00 16 10/10/22 21:43 98.6 F 73 16 131/86 92 L 10/10/22 20:56 97.9 F 102 H 16 128/88 95 10/10/22 19:00 109 H 18 130/91 100 10/10/22 18:00 106 H 16 123/98 100 10/10/22 17:00 98 14 125/86 100 10/10/22 16:00 110 H 16 132/95 100 10/10/22 14:00 114 H 12 112/100 10/10/22 12:00 105 H 16 103/84 96 Intake and Output 10/10/22 10/11/22 10/11/22 22:59 06:59 14:59 Intake Total 50 Output Total 300 Balance -250 Intake: Intake, IV Titration 50 Amount cefTRIAXone 1 gm In 50 Sodium Chloride 0.9% 50 ml @ 100 mls/hr IVPB Q24H [facility] Rx#:[id number] Output: Urine 300 Other: Voiding Method External Catheter Diaper External Catheter # Voids 1 Weight 72.575 kg Results 10/09/22 22:52 10/11/22 06:54 Comprehensive Metabolic Panel 10/11/22 Range/Units 06:54 Sodium 147 H (137-145) mmol/L Potassium 4.1 (3.5-5.1) mmol/L Chloride 108 H (98-107) mmol/L Carbon Dioxide 33 H (22-30) mmol/L BUN 31 H (7-17) mg/dL Creatinine 1.09 H (0.52-1.04) mg/dL Glucose 73 L (74-99) mg/dL Calcium 9.0 (8.4-10.2) mg/dL Current Medications Generic Name Dose Route Start Last Admin Trade Name Freq PRN Reason Stop Dose Admin Albuterol Sulfate 2.5 mg 10/11/22 08:08 Albuterol Nebulized 2.5 Mg/3 Ml INHALATION RT-Q6H PRN Shortness Of Breath Or Wheezing Amiodarone HCl 200 mg 10/10/22 09:00 10/11/22 08:51 Amiodarone 200 Mg Tab PO Not Given BID [facility] Apixaban 5 mg 10/10/22 09:00 10/11/22 08:51 Apixaban 5 Mg Tab PO Not Given BID [facility] Protocol Aspirin 81 mg 10/10/22 09:00 10/11/22 08:51 Aspirin 81 Mg PO Not Given DAILY [facility] Atorvastatin Calcium 20 mg 10/10/22 21:00 10/10/22 20:13 Atorvastatin 20 Mg Tab PO Not Given HS [facility] Furosemide 40 mg 10/10/22 12:15 10/11/22 08:52 Furosemide 10 Mg/Ml 4 Ml Vial IV 40 mg Q12HR [facility] Administration Ceftriaxone Sodium 1 gm/ 50 mls @ 100 mls/hr 10/10/22 03:00 10/11/22 03:19 Sodium Chloride IVPB 100 mls/hr Q24H [facility] Administration Protocol Ipratropium [place] 0.5 mg 10/11/22 08:08 Ipratropium 0.5 Mg/2.5 Ml Nebu INHALATION RT-Q6H PRN Shortness Of Breath Or Wheezing Lactulose 20 gm 10/10/22 09:00 10/11/22 08:51 Lactulose 20 Gm/30 Ml Cup PO Not Given DAILY [facility] Metoprolol Tartrate 75 mg 10/10/22 09:00 10/11/22 08:51 Metoprolol Tartrate 25 Mg Tab PO Not Given BID [facility] Naloxone HCl 0.2 mg 10/10/22 02:00 Naloxone 0.4 Mg/Ml 1 Ml Vial IV Q2M PRN Opioid Reversal Olanzapine 2.5 mg 10/10/22 02:12 Olanzapine Odt 5 Mg Tab PO Q8H PRN Agitation or Acute Anxiety Quetiapine Fumarate 25 mg 10/10/22 21:00 10/10/22 20:13 Quetiapine 25 Mg Tab PO Not Given HS [facility] Risperidone 0.25 mg 10/10/22 21:00 10/10/22 20:14 Risperidone 0.25 Mg Tab PO Not Given HS [facility] Sacubitril/Valsartan 1 each 10/10/22 09:00 10/11/22 08:51 Sacubitril/Valsartan 24 Mg-26 Mg Tablet PO Not Given BID [facility] Intake and Output 10/10/22 10/11/22 10/11/22 22:59 06:59 14:59 Intake Total 50 Output Total 300 Balance -250 Intake: Intake, IV Titration 50 Amount cefTRIAXone 1 gm In 50 Sodium Chloride 0.9% 50 ml @ 100 mls/hr IVPB Q24H [facility] Rx#:[id number] Output: Urine 300 Other: Voiding Method External Catheter Diaper External Catheter # Voids 1 Weight 72.575 kg 10/09/22 22:52 10/11/22 06:54
--- NOTE | 2022-10-11 13:12 | PN ---
PROGRESS NOTE DATE OF SERVICE: 10/11/2022 SUBJECTIVE: This is an 81-year-old woman who was admitted with CHF acute exacerbation, also had change in mental status. Patient continues to be barely responsive. The patient is on diuretics. Multiple consultants are following the patient closely. Sodium is 147, creatinine is 1.09. The patient is currently no code. PAST MEDICAL HISTORY: Reviewed. REVIEW OF SYSTEMS: Could not be taken. CURRENT MEDICATIONS: Reviewed include ceftriaxone. Dose and rest of medication noted. OBJECTIVE: VITAL SIGNS: Pulse 57, blood pressure 160/87, respiration 18. CHEST: A few scattered rhonchi and crackles. ABDOMEN: Soft. NERVOUS SYSTEM: No focal deficit. LABORATORY DATA: Reviewed. ASSESSMENT: 1. Congestive heart failure acute exacerbation with acute hypoxic respiratory failure, present on admission. 2. Change in mental status, acute metabolic encephalopathy, multifactorial. 3. History of dementia. 4. Atrial fibrillation. 5. Hyperlipidemia. 6. NO CODE. No CARDIOPULMONARY RESUSCITATION. NO VENT. RECOMMENDATIONS: Recommend to continue current management and symptomatic treatment. Currently, the patient is on Lasix 40 IV b.i.d. We will continue to monitor the fluid/electrolyte balance closely. The patient is on Entresto as well, otherwise p.r.n. Haldol may be used for the patient is showing agitation. Otherwise, so far, the cultures are negative. Repeat labs in the morning. Closely follow with Cardiology. Further recommendations to follow. We will repeat x-ray also in the morning. MMODL / IJN: [id number] /
[2022-10-11 13:21] LABS: Basophils # (A) 0.04 X 10*3/uL (0.00-0.10); Basophils % (A) 0.8 %; Eosinophils % (A) 3.9 %; HCT 42.5 % (37.2-46.3); HGB 12.5 g/dL (12.0-15.0); Immature Grans, Automated 0.4 %; Lymphocytes # (A) 0.78 X 10*3/uL (0.90-5.00); Lymphocytes % (A) 15.4 %; MCH 27.5 pg (27.0-32.0); MCHC 29.4 g/dL (32.0-37.0); MCV 93.4 fL (80.0-97.0); Mean Platelet Volume 11.3 fL (9.5-12.2); Monocytes # (A) 0.47 X 10*3/uL (0.20-1.00); Monocytes % (A) 9.3 %; NRBC Per 100 WBC 0 /100 WBCS (0.0-0.0); Neutrophils # (A) 3.57 X 10*3/uL (1.80-7.70); Neutrophils % (A) 70.2 %; Platelet Count 170 X 10*3/uL (140-440); RBC 4.55 X 10*6/uL (4.10-5.20); RDW 17.5 % (11.5-14.5); WBC 5.08 X 10*3/uL (4.50-10.00)
[2022-10-11] MEDS: risperiDONE 0.25 MG TAB PO SCH (21:10)
[2022-10-11] MEDS: QUEtiapine 25 MG TAB PO SCH (21:10)
[2022-10-11] MEDS: ATORVASTATIN 20 MG TAB PO SCH (21:11)
[2022-10-12] MEDS: FUROSEMIDE 10 MG/ML 4 ML VIAL IV SCH ×2 (07:30→21:41)
[2022-10-12] MEDS: LACTULOSE 20 GM/30 ML CUP PO SCH (08:51)
[2022-10-12] MEDS: SACUBITRIL/VALSARTAN 24 MG-26 MG TABLET PO SCH ×2 (08:51→21:41)
[2022-10-12] MEDS: AMIODARONE 200 MG TAB PO SCH ×2 (08:51→21:40)
[2022-10-12] MEDS: METOPROLOL TARTRATE 25 MG TAB PO SCH ×2 (08:52→21:40)
[2022-10-12] MEDS: ASPIRIN 81 MG PO SCH (08:52)
[2022-10-12] MEDS: APIXABAN 5 MG TAB PO SCH ×2 (08:52→21:40)
--- NOTE | 2022-10-12 11:20 | P.PN ---
Subjective Progress Note Date: 10/12/22 Principal diagnosis: Congestive heart failure The patient is an 79-year-old female patient with extensive cardiovascular history consistent off cardiomyopathy with the echo from 2022 showing an EF around 40% as well as valvular heart disease was known mitral and tricuspid regurgitation and moderate pulmonary hypertension as well as permanent atrial fibrillation currently on oral anticoagulation as well as hypertension and dyslipidemia and also history of severe underlying dementia. Currently the patient is residing at [facility] [place]. The patient almost nonverbal. We asked to see the patient in a consultation regarding congestive heart failure. Apparently the patient was noted to be hypoxic at the [facility] was oxygen saturation has been as low as 60s. She was requiring more oxygen. For that reason she was brought to the hospital for further evaluation. She was hypoxic in the emergency department but her oxygen saturation was somewhat slightly better after she was placed on 4 L oxygen. No indication that she was experiencing any symptoms of chest pain or chest discomfort. She was more short of breath. She was also having more of bilateral lower extremity edema. The patient underwent further evaluation here in the emergency depar tment including EKG showing atrial fibrillation and she is known to have permanent nature fibrillation and she is on oral anticoagulation. Also she underwent a chest x-ray showed findings consistent with CHF. The patient was placed on Lasix IV. On examination she does have stable vital signs but she has severe bilateral lower extremity edema and chronic skin changes and possible underlying cellulitis and also she has diminished breathing sounds bilaterally with irregular rhythm. The patient was nonverbal. 10/12/2022 The patient was seen and evaluated this morning. Her mentation is a slightly better. She still lethargic but not as severe as yesterday. Hemodynamically she is stable. Beside that she continues to be hypoxic and requires oxygen to keep saturation above 90%. She continues to be on Lasix IV. Creatinine is a stable. Assessment Heart failure exacerbation secondary to heart failure with reduced ejection fraction was evidence of right and left failure Permanent in nature fibrillation with controlled heart rate Cardiomyopathy with EF around 40% Valvular heart disease was mitral and tricuspid regurgitation Severe underlying dementia Multiple comorbid conditions Plan No need to repeat the echo in the light of recent echocardiogram Continue the current dose of Lasix IV for additional 24 hours Continue monitoring the kidney function and electrolytes Follow-up with the patient Objective - Vital Signs Vital signs: Vital Signs Temp 97.9 F 10/12/22 06:58 Pulse 53 L 10/12/22 06:58 Resp 17 10/12/22 06:58 BP 132/80 10/12/22 06:58 Pulse Ox 92 L 10/12/22 08:37 FiO2 Intake & Output 10/11/22 10/12/22 10/12/22 18:59 06:59 18:59 Intake Total 120 Output Total 950 400 Balance -950 -400 120 Intake: Oral 120 Output: Urine 950 400 Other: Voiding Method Diaper Diaper Diaper External Catheter External Catheter External Catheter # Voids 0 1 - Labs CBC & Chem 7: 10/11/22 06:59 10/11/22 06:54 Labs: Abnormal Lab Results - Last 24 Hours (Table) 10/11/22 Range/Units 06:59 MCHC 29.4 L (32.0-37.0) g/dL RDW 17.5 H (11.5-14.5) % Lymphocytes # 0.78 L (0.90-5.00) X 10*3/uL
[2022-10-12 11:45] LABS: Basophils # (A) 0.04 X 10*3/uL (0.00-0.10); Basophils % (A) 0.6 %; Eosinophils % (A) 1.5 %; HCT 44.6 % (37.2-46.3); HGB 12.8 g/dL (12.0-15.0); Immature Grans, Automated 0.3 %; Lymphocytes # (A) 0.64 X 10*3/uL (0.90-5.00); Lymphocytes % (A) 9.5 %; MCH 26.1 pg (27.0-32.0); MCHC 28.7 g/dL (32.0-37.0); Mean Platelet Volume 11.6 fL (9.5-12.2); Monocytes # (A) 0.68 X 10*3/uL (0.20-1.00); NRBC Per 100 WBC 0 /100 WBCS (0.0-0.0); Neutrophils # (A) 5.29 X 10*3/uL (1.80-7.70); Neutrophils % (A) 78.1 %; Platelet Count 190 X 10*3/uL (140-440); RDW 17.4 % (11.5-14.5); WBC 6.77 X 10*3/uL (4.50-10.00)
[2022-10-12 11:59] LABS: African American GFR (CKD) 48.7 (60.0-200.0); Anion Gap 11.3 mmol/L (10.00-18.00); BUN/Creat Ratio 20.75 Ratio (12.00-20.00); Blood Urea Nitrogen 24.9 mg/dL (9.0-27.0); Calcium 9.8 mg/dL (8.7-10.3); Carbon Dioxide 35.7 mmol/L (20.0-27.5); Non-African American GFR(CKD) 42.1 (60.0-200.0); Potassium 3.6 mmol/L (3.5-5.5)
--- NOTE | 2022-10-12 13:43 | P.PN ---
Subjective Progress Note Date: 10/12/22 The patient is an 79-year-old female patient with extensive cardiovascular history consistent off cardiomyopathy with the echo from 2022 showing an EF around 40% as well as valvular heart disease was known mitral and tricuspid regurgitation and moderate pulmonary hypertension as well as permanent atrial f ibrillation currently on oral anticoagulation as well as hypertension and dyslipidemia and also history of severe underlying dementia. Currently the patient is residing at [facility] care [facility]. The patient almost nonverbal. Apparently the patient was noted to be hypoxic at the extended care facility was oxygen saturation has been as low as 60s. She was requiring more oxygen. For that reason she was brought to the hospital for further evaluation. She was hypoxic in the emergency department but her oxygen saturation was somewhat slightly better after she was placed on 4 L oxygen. No indication that she was experiencing any symptoms of chest pain or chest discomfort. She was more short of breath. She was also having more of bilateral lower extremity edema. The patient underwent further evaluation here in the emergency department including EKG showing atrial fibrillation and she is known to have permanent nature fibrillation and she is on oral anticoagulation. Also she underwent a chest x- ray showed findings consistent with CHF. The patient was placed on Lasix IV. 10/12 patient seen and examined. Laying comfortably in the bed. Not in acute distress. Swelling of lower extremities is improved. Shortness of breath is improved patient is confused which is her baseline REVIEW OF SYSTEMS: Unable to obtain a good review of systems because of patient's history of dementia PHYSICAL EXAMINATION: GENERAL: The patient is confused, not in any acute distress. Well developed, well nourished. HEENT: Pupils are round and equally reacting to light. EOMI. No scleral icterus. No conjunctival pallor. Normocephalic, atraumatic. No pharyngeal erythema. No thyromegaly. CARDIOVASCULAR: S1 and S2 present. No murmurs, rubs, or gallops. PULMONARY: Chest is clear to auscultation, no wheezing or crackles. ABDOMEN: Soft, nontender, nondistended, normoactive bowel sounds. No palpable organomegaly. MUSCULOSKELETAL: No joint swelling or deformity. EXTREMITIES: 1+ pitting edema lower extremities bilaterally NEUROLOGICAL: Gross neurological examination did not reveal any focal deficits. SKIN: No rashes. Assessment and plan Acute metabolic encephalopathy Acute hypoxemic respiratory failure Acute on chronic systolic CHF Persistent 8 fibrillation with controlled heart rate Cardiomyopathy with EF around 40% Valvular heart disease was mitral and tricuspid regurgitation Severe underlying dementia Multiple comorbid conditions Plan; Monitor vital signs Monitor CBC Monitor CMP Continue telemetry monitoring Continue the current dose of Lasix IV Continue monitoring the kidney function and electrolytes Follow-up on cardiology recommendations Objective - Vital Signs Vital signs: Vital Signs Temp 97.9 F 10/12/22 06:58 Pulse 53 L 10/12/22 06:58 Resp 17 10/12/22 06:58 BP 132/80 10/12/22 06:58 Pulse Ox 92 L 10/12/22 08:37 FiO2 Intake & Output 10/11/22 10/12/22 10/12/22 18:59 06:59 18:59 Intake Total 120 Output Total 950 400 Balance -950 -400 120 Intake: Oral 120 Output: Urine 950 400 Other: Voiding Method Diaper Diaper Diaper External Catheter External Catheter External Catheter # Voids 0 - Labs CBC & Chem 7: 10/12/22 07:50 10/12/22 07:42 Labs: Abnormal Lab Results - Last 24 Hours (Table) 10/11/22 Range/Units 06:59 MCHC 29.4 L (32.0-37.0) g/dL RDW 17.5 H (11.5-14.5) % Lymphocytes # 0.78 L (0.90-5.00) X 10*3/uL
[2022-10-12 15:51] VITALS: RESP 18
[2022-10-12] MEDS: risperiDONE 0.25 MG TAB PO SCH (21:40)
[2022-10-12] MEDS: ATORVASTATIN 20 MG TAB PO SCH (21:40)
[2022-10-12] MEDS: QUEtiapine 25 MG TAB PO SCH (21:41)
[2022-10-13 06:18] LABS: Anisocytosis Slight; Basophils % (A) 1 %; Eosinophils # (A) 0.1 k/uL (0-0.7); Eosinophils % (A) 2 %; HCT 40.3 % (34.0-46.0); HGB 12.5 gm/dL (11.4-16.0); Hypochromasia Moderate; Lymphocytes # (A) 0.7 k/uL (1.0-4.8); Lymphocytes % (A) 14 %; MCH 27.4 pg (25.0-35.0); MCHC 31.1 g/dL (31.0-37.0); MCV 88.3 fL (80.0-100.0); Mean Platelet Volume 9.3; Monocytes # (A) 0.4 k/uL (0-1.0); Monocytes % (A) 7 %; Neutrophils # (A) 3.9 k/uL (1.3-7.7); Neutrophils % (A) 74 %; Platelet Count 146 k/uL (150-450); RBC 4.56 m/uL (3.80-5.40); RDW 16.4 % (11.5-15.5); WBC 5.3 k/uL (3.8-10.6)
[2022-10-13 06:27] LABS: ALT 22 U/L (4-34); AST 34 U/L (14-36); African American GFR (CKD) 61 (>60 ml/min/1.73 sqM); Albumin 2.7 g/dL (3.5-5.0); Albumin/Globulin Ratio 0.8; Alkaline Phosphatase 114 U/L (38-126); Anion Gap 3 mmol/L; Blood Urea Nitrogen 32 mg/dL (7-17); Calcium 8.9 mg/dL (8.4-10.2); Carbon Dioxide 38 mmol/L (22-30); Chloride 104 mmol/L (98-107); Globulin 3.4 g/dL; Glucose 82 mg/dL (74-99); Non-African American GFR(CKD) 53 (>60 ml/min/1.73 sqM); Potassium 3.5 mmol/L (3.5-5.1); Sodium 145 mmol/L (137-145); Total Bilirubin 1.6 mg/dL (0.2-1.3); Total Protein 6.1 g/dL (6.3-8.2)
[2022-10-13] MEDS: METOPROLOL TARTRATE 25 MG TAB PO SCH (07:23)
--- NOTE | 2022-10-13 09:56 | P.PN ---
Subjective The patient is an 79-year-old female patient with extensive cardiovascular history consistent off cardiomyopathy with the echo from 2022 showing an EF around 40% as well as valvular heart disease was known mitral and tricuspid regurgitation and moderate pulmonary hypertension as well as permanent atrial fibrillation currently on oral anticoagulation as well as hypertension and dyslipidemia and also history of severe underlying dementia. Currently the patient is residing at extended care facility. The patient almost nonverbal. We asked to see the patient in a consultation regarding congestive heart failure. Apparently the patient was noted to be hypoxic at the extended care facility was oxygen saturation has been as low as 60s. She was requiring more oxygen. For that reason she was brought to the hospital for further evaluation. She was hypoxic in the emergency department but her oxygen saturation was somewhat slightly better after she was placed on 4 L oxygen. No indication that she was experiencing any symptoms of chest pain or chest discomfort. She was more short of breath. She was also having more of bilateral lower extremity edema. The patient underwent further evaluation here in the emergency department including EKG showing atrial fibrillation and she is known to have permanent nature fibrillation and she is on oral anticoagulation. Also she underwent a chest x-ray showed findings consistent with CHF. The patient was placed on Lasix IV. On examination she does have stable vital signs but she has severe bilateral lower extremity edema and chronic skin changes and possible underlying cellulitis and also she has diminished breathing sounds bilaterally with irregular rhythm. The patient was nonverbal. 10/12/2022 The patient was seen and evaluated this morning. Her mentation is a slightly better. She still lethargic but not as severe as yesterday. Hemodynamically she is stable. Beside that she continues to be hypoxic and requires oxygen to keep saturation above 90%. She continues to be on Lasix IV. Creatinine is a stable. 10/13 Patient seen and examined. Patient lethargic and not responding verbally however arousable and makes eye contact. Does not follow any commands. Discussed with nursing and patient is a one-to-one feed and not eating much. Sodium improved to 145 and creatinine stable 1.0. 10/12/2022 The patient was seen and evaluated this morning. Her mentation is a slightly better. She still lethargic but not as severe as yesterday. Hemodynamically she is stable. Beside that she continues to be hypoxic and requires oxygen to keep saturation above 90%. She continues to be on Lasix IV. Creatinine is a stable. PHYSICAL EXAMINATION Vital signs reviewed. CONSTITUTIONAL: No apparent distress. HEENT: Head is normocephalic. Pupils are equal, round. Sclerae anicteric. Mucous membranes of the mouth are moist. No JVD. No carotid bruit. CHEST EXAMINATION: Lungs are clear to auscultation. No chest wall tenderness is noted on palpation or with deep breathing. HEART EXAMINATION: Regular rate and rhythm. S1, S2 heard. No murmurs, gallops or rub. ABDOMEN: Soft, nontender. Positive bowel sounds. EXTREMITIES: 2+ peripheral pulses, no lower extremity edema and no calf tenderness. NEUROLOGIC EXAMINATION: Patient is awake, alert and oriented x3. Assessment Acute on chronic systolic heart failure Permanent in nature fibrillation with controlled heart rate Cardiomyopathy with EF around 40% Valvular heart disease was mitral and tricuspid regurgitation Severe underlying dementia Multiple comorbid conditions Plan Patient is not eating much however sodium appears improved. Does not appear volume overloaded and transition back to oral diuretics. Appears palliative care program.. No further recommendations from a cardiology standpoint. Please call with any questions. Objective - Vital Signs Vital signs: Vital Signs Temp 97.6 F 10/13/22 08:00 Pulse 81 10/13/22 08:00 Resp 18 10/13/22 08:00 BP 113/75 10/13/22 08:00 Pulse Ox 92 L 10/13/22 08:00 FiO2 Intake & Output 10/12/22 10/13/22 10/13/22 18:59 06:59 18:59 Intake Total 120 350 Output Total 300 300 Balance -180 50 Intake: Intake, IV Titration 50 Amount cefTRIAXone 1 gm In 50 Sodium Chloride 0.9% 50 ml @ 100 mls/hr IVPB Q24H [facility] Rx#:[id number] Oral 120 300 Output: Urine 300 300 Other: Voiding Method Diaper Diaper External Catheter External Catheter # Voids 1 - Labs CBC & Chem 7: 10/13/22 05:41 10/13/22 05:41 Labs: Abnormal Lab Results - Last 24 Hours (Table) 10/12/22 10/12/22 10/13/22 Range/Units 07:42 07:50 05:41 MCH 26.1 L (27.0-32.0) pg MCHC 28.7 L (32.0-37.0) g/dL RDW 17.4 H 16.4 H (11.5-14.5) % Plt Count 146 L (150-450) k/uL Lymphocytes # 0.64 L 0.7 L (0.90-5.00) X 10*3/uL Sodium 151 H (135-145) mmol/L Carbon Dioxide 35.7 H (20.0-27.5) mmol/L BUN (7-17) mg/dL Est GFR (CKD-EPI)AfAm 48.7 L (60.0-200.0) Est GFR (CKD-EPI)NonAf 42.1 L (60.0-200.0) BUN/Creatinine Ratio 20.75 H (12.00-20.00) Ratio Total Bilirubin (0.2-1.3) mg/dL Total Protein (6.3-8.2) g/dL Albumin (3.5-5.0) g/dL 10/13/22 Range/Units 05:41 MCH (27.0-32.0) pg MCHC (32.0-37.0) g/dL RDW (11.5-14.5) % Plt Count (150-450) k/uL Lymphocytes # (0.90-5.00) X 10*3/uL Sodium (135-145) mmol/L Carbon Dioxide 38 H (20.0-27.5) mmol/L BUN 32 H (7-17) mg/dL Est GFR (CKD-EPI)AfAm (60.0-200.0) Est GFR (CKD-EPI)NonAf (60.0-200.0) BUN/Creatinine Ratio (12.00-20.00) Ratio Total Bilirubin 1.6 H (0.2-1.3) mg/dL Total Protein 6.1 L (6.3-8.2) g/dL Albumin 2.7 L (3.5-5.0) g/dL
[2022-10-13] MEDS: LACTULOSE 20 GM/30 ML CUP PO SCH (10:39)
[2022-10-13] MEDS: ASPIRIN 81 MG PO SCH (10:40)
[2022-10-13] MEDS: SACUBITRIL/VALSARTAN 24 MG-26 MG TABLET PO SCH ×2 (10:40→11:08)
[2022-10-13] MEDS: APIXABAN 5 MG TAB PO SCH (10:40)
[2022-10-13] MEDS: FUROSEMIDE 10 MG/ML 4 ML VIAL IV SCH ×2 (10:40→10:44)
[2022-10-13] MEDS: AMIODARONE 200 MG TAB PO SCH (10:40)
[2022-10-13 11:40] VITALS: BP 112/79; PULSE 86; TEMP 98
--- NOTE | 2022-10-13 12:57 | P.DS ---
Providers Date of admission: 10/10/22 02:00 Expected date of discharge: 10/13/22 Attending physician: Rolf Amos Consults: 10/10/22 11:10 Consult to Palliative Care Routine Consulting Provider: Aicha Hawkins Consult Reason/Comments: Goals of Care, Dementia A&Ox1 to at baseline, contact family Do you want consulting provider notified?: Yes Primary care physician: Kristi Moctezuma, Hospital Course: Discharge diagnoses; Acute metabolic encephalopathy Acute hypoxemic respiratory failure Acute on chronic systolic CHF Persistent atrial fibrillation with controlled heart rate Cardiomyopathy with EF around 40% 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 Currently the patient is residing at [facility]. The patient almost nonverbal. Apparently the patient was noted to be hypoxic at the [facility] was oxygen saturation has been as low as 60s. She was requiring more oxygen. For that reason she was brought to the hospital for further evaluation. She was hypoxic in the emergency department but her oxygen saturation was somewhat slightly better after she was placed on 4 L oxygen. No indication that she was experiencing any symptoms of chest pain or chest discomfort. She was more short of breath. She was also having more of bilateral lower extremity edema. The patient underwent further evaluation here in the emergency department including EKG showing atrial fibrillation and she is known to have permanent nature fibrillation and she is on oral anticoagulation. Also she underwent a chest x- ray showed findings consistent with CHF. The patient was placed on Lasix IV. 10/12 patient seen and examined. Laying comfortably in the bed. Not in acute distress. Swelling of lower extremities is improved. Shortness of breath is improved patient is confused which is her baseline 10/13. Patient seen and examined. Patient being seen by cardiology, they recommended changing her back to home regimen of diuretics. Being discharged back to nursing facility PHYSICAL EXAMINATION: GENERAL: Baseline dementia, not in any acute distress. Well developed, well nourished. HEENT: Pupils are round and equally reacting to light. EOMI. No scleral icterus. No conjunctival pallor. Normocephalic, atraumatic. No pharyngeal erythema. No thyromegaly. CARDIOVASCULAR: S1 and S2 present. No murmurs, rubs, or gallops. PULMONARY: Chest is clear to auscultation, no wheezing or crackles. ABDOMEN: Soft, nontender, nondistended, normoactive bowel sounds. No palpable organomegaly. MUSCULOSKELETAL: No joint swelling or deformity. EXTREMITIES: No cyanosis, clubbing, or pedal edema. NEUROLOGICAL: Gross neurological examination did not reveal any focal deficits. SKIN: No rashes. Patient Condition at Discharge: Stable Plan - Discharge Summary Discharge Rx Participant: No New Discharge Prescriptions: New Metoprolol Tartrate [Lopressor] 75 mg PO BID #30 tab Continue Cranberry Fruit Extract [Cranberry] 500 mg PO BID Cholecalciferol [Vitamin D3 (25 Mcg = 1000 Iu)] 25 mcg PO DAILY Atorvastatin Calcium 20 mg PO HS Ipratropium-Albuterol Nebulize [Duoneb 0.5 mg-3 mg/3 ml Soln] 3 ml INHALATION RT-TID Torsemide [Demadex] 20 mg PO DAILY tab risperiDONE [RisperDAL] 0.25 mg PO BID Mirtazapine [Remeron] 15 mg PO HS Famotidine [Pepcid] 20 mg PO BID Amiodarone [Cordarone] 200 mg PO HS Mupirocin 2% Oint [Bactroban 2% Oint] 1 applic TOPICAL TID Sacubitril/Valsartan [Entresto 24 mg-26 mg Tablet] 2 tab PO BID Apixaban [Eliquis] 5 mg PO BID Lactulose 20 gm PO DAILY Aspirin EC [Ecotrin Low Dose] 81 mg PO DAILY Acetaminophen Tab [Tylenol] 325 mg PO Q6HR PRN tab PRN Reason: Fever And/ Or Pain Pyridoxine HCl (Vitamin B6) [Vitamin B-6] 100 mg PO DAILY LORazepam [Ativan] 0.5 mg PO Q6H PRN PRN Reason: Agitation/Anxiety/Agressive Discontinued Metoprolol Tartrate [Lopressor] 50 mg PO Q12H Discharge Medication List Apixaban [Eliquis] 5 mg PO BID 09/19/22 [History] Aspirin EC [Ecotrin Low Dose] 81 mg PO DAILY 09/19/22 [History] Atorvastatin Calcium 20 mg PO HS 09/19/22 [History] Cholecalciferol [Vitamin D3 (25 Mcg = 1000 Iu)] 25 mcg PO DAILY 09/19/22 [History] Cranberry Fruit Extract [Cranberry] 500 mg PO BID 09/19/22 [History] Ipratropium-Albuterol Nebulize [Duoneb 0.5 mg-3 mg/3 ml Soln] 3 ml INHALATION RT-TID 09/19/22 [History] Lactulose 20 gm PO DAILY 09/19/22 [History] Mupirocin 2% Oint [Bactroban 2% Oint] 1 applic TOPICAL TID 09/19/22 [History] Sacubitril/Valsartan [Entresto 24 mg-26 mg Tablet] 2 tab PO BID 09/19/22 [History] Acetaminophen Tab [Tylenol] 325 mg PO Q6HR PRN tab 09/23/22 [Rx] Torsemide [Demadex] 20 mg PO DAILY tab 09/23/22 [Rx] Amiodarone [Cordarone] 200 mg PO HS 10/10/22 [History] Famotidine [Pepcid] 20 mg PO BID 10/10/22 [History] LORazepam [Ativan] 0.5 mg PO Q6H PRN 10/10/22 [History] Mirtazapine [Remeron] 15 mg PO HS 10/10/22 [History] Pyridoxine HCl (Vitamin B6) [Vitamin B-6] 100 mg PO DAILY 10/10/22 [History] risperiDONE [RisperDAL] 0.25 mg PO BID 10/10/22 [History] Metoprolol Tartrate [Lopressor] 75 mg PO BID #30 tab 10/13/22 [Rx] Follow up Appointment(s)/Referral(s): Nonstaff,Physician [REFERRING] - 1-2 days Myron Enamorado MD [STAFF PHYSICIAN] - 1 Week Discharge Disposition: TRANSFER TO SNF/ECF
--- NOTE | 2022-10-13 13:51 | P.PN ---
Subjective Progress Note Date: 10/13/22 Patient is 81-year-old female with a past medical history of atrial fibrillation, congestive heart failure, dementia, and hyperlipidemia. The patient is a resident of [facility] in [place]. There were reports of hypoxemia at the facility with a SpO2 of 60%. She received supplemental oxygen and breathing treatments at the facility. When EMS arrived they report that she was satting approximately 94-95% on room air. She was transported to the emergency department for further evaluation. The patient is confused and agitated requiring Zyprexa in the ED. Work up included an EKG which showed A.fib with RVR with a rate of 110bpm, a CXR which revealed congestive heart failure increasing congestion and pleural fluid compared to old exam. 10/10 The patient was examined in the emergency department. The staff had administered antipsychotics for agitation. The patient is resting with her eyes closed. Spoke with the patient's son, Fab, via telephone. He is currently in [place] for a week. His son Domingo, lives near the hospital. He'll states that his mother is normally very pleasant to be around. He stated that 2 weeks ago he was visiting and they had a good conversation and even laughed a lot. He states that she has had frequent hospitalizations recently for UTIs and her CHF. He states that whenever she gets a UTI she gets confused, combative, and even hallucinates. He states she has always gotten UTI's even when she lived at home. However, they have become more frequent. It makes it hard to see his mom confused and combative. It was clarified that the patient was brought in for evaluation of hypoxia. Her urinalysis is negative. She does not have a UTI. She is having a CHF exacerbation and a possible pneumonia. He was reassured that she is receiving antibiotics and she is only on 2L NC right now. He also states that her functionality has declined over the last month. She previously used a walker, but she got to weak and started falling. She is mostly bed bound now. Information regarding palliative care and hospice philosophies and services was provided. Voiced concern that the patient's dementia seems to be progressing. He has not talked with her about what her end of life wished may be. He is hopeful her mentation will improve. He would like to wait and see if she improves before making any decisions. Code status discussed in detail. He wishes to make her a DNR. Objective - Vital Signs Vital signs: Vital Signs Temp 98 F 10/13/22 11:39 Pulse 86 10/13/22 11:39 Resp 18 10/13/22 11:39 BP 112/79 10/13/22 11:39 Pulse Ox 100 10/13/22 11:39 FiO2 Intake & Output 10/12/22 10/13/22 10/13/22 18:59 06:59 18:59 Intake Total 120 350 Output Total 300 300 Balance -180 50 Intake: Intake, IV Titration 50 Amount cefTRIAXone 1 gm In 50 Sodium Chloride 0.9% 50 ml @ 100 mls/hr IVPB Q24H [facility] Rx#:[id number] Oral 120 300 Output: Urine 300 300 Other: Voiding Method Diaper Diaper External Catheter External Catheter # Voids 1 - Exam General: No acute distress. Chronically ill appearing HEENT: Head is atraumatic, normocephalic. Lungs: Respirations even and nonlabored. On 4L NC Abdomen/GI: Soft, nondistended, nontender. : No suprapubic tenderness. Brief on for incontinence. Musculoskeletal/ Extremities: No joint deformity or swelling. No contractures or gross atrophy. + generalized weakness Skin: Warm and dry Neurologic: Sleeping - Labs CBC & Chem 7: 10/13/22 05:41 10/13/22 05:41 Labs: Abnormal Lab Results - Last 24 Hours (Table) 10/13/22 10/13/22 Range/Units 05:41 05:41 RDW 16.4 H (11.5-15.5) % Plt Count 146 L (150-450) k/uL Lymphocytes # 0.7 L (1.0-4.8) k/uL Carbon Dioxide 38 H (22-30) mmol/L BUN 32 H (7-17) mg/dL Total Bilirubin 1.6 H (0.2-1.3) mg/dL Total Protein 6.1 L (6.3-8.2) g/dL Albumin 2.7 L (3.5-5.0) g/dL Assessment and Plan Assessment: Symptoms * Pain - CPOT 0 * SOB - No distress noted, on 4L NC, continue Rochepin, Demadex, Albuterol, and Duoneb * N/V - JUANITA * Confusion - yes * Agitation - yes, continue Zyprexa and Seroquel * Hallucinations - No * Appetite/weight loss - JUANITA * Dysphagia -JUANITA * Constipation - * Incontinence - Yes, has brief on * Itch - JUANITA * Cough - JUANITA Plan: Summary/Goals - The patient is lying in bed and appears comfortable. She opened her eyes when her name was called, but quickly shut them. She will not open her eyes again. She is less lethargic, but her mentation has not improved. Spoke with the patient's son, Fab, via telephone. Education provided regarding the difference between hospice and palliative care, and the services each has to offer. Concern expressed about the patient being bedridden, malnourished, and confused/agitated. The patient's dementia is progressing. Today her total protein is 6.1 and her albumin is 2.7. Fab states that his son was here yesterday and reported that she ate very will and drank an entire ensure shake. Today's nurse states she can barely get her pills in her. Fab states that her appetite and willingness to eat is up and down. She has been like this for some time in [place] before admission. He states that he is not ready to make a decision about palliative care or hospice until her gets back from [place] and is able to speak to other family members. Recommendations - palliative care vs hospice Advanced Directives - None on file Code Status - Patient is now a DNR Thank you for this consultation Aicha Hawkins [facility] [id number] Email: [email or web address]
[2022-10-14] MEDS ORDERED: TORSEMIDE 20 MG TAB PO SCH (09:00)
== END 2022-10-13 19:10 | DRG 291 ==
LOC: EC 22:24 → 4SSUR 10-10 02:00 → 5NMEDONC 10-10 03:21
PROVIDERS: ADMIT Hospitalist; ATTEND Hospitalist
PROC: 3E0F7SF Introduction of Other Gas into Respiratory Tract, Via Natural or Artificial Opening (ICD-10-PCS; principal; 2022-10-10)
DX: I11.0 Hypertensive heart disease with heart failure (principal); G93.41 Metabolic encephalopathy; I50.23 Acute on chronic systolic (congestive) heart failure; J96.01 Acute respiratory failure with hypoxia; I48.21 Permanent atrial fibrillation; F03.C18 Unspecified dementia, severe, with other behavioral disturbance; N17.9 Acute kidney failure, unspecified; N39.0 Urinary tract infection, site not specified; Z20.822 Contact with and (suspected) exposure to COVID-19; F25.9 Schizoaffective disorder, unspecified; I42.9 Cardiomyopathy, unspecified; E03.9 Hypothyroidism, unspecified; Z87.01 Personal history of pneumonia (recurrent); E78.5 Hyperlipidemia, unspecified; I08.1 Rheumatic disorders of both mitral and tricuspid valves; I27.20 Pulmonary hypertension, unspecified; K59.00 Constipation, unspecified; Z79.890 Hormone replacement therapy; T50.1X5A Adverse effect of loop [high-ceiling] diuretics, initial encounter; T50.2X5A Adverse effect of carbonic-anhydrase inhibitors, benzothiadiazides and other diuretics, initial encounter; Z51.5 Encounter for palliative care; Z66 Do not resuscitate; Z79.01 Long term (current) use of anticoagulants; Z79.82 Long term (current) use of aspirin; Z79.899 Other long term (current) drug therapy
CPT/HCPCS: 36415; 71045; 80048; 80053; 81001; 83880; 85025; 87636; 93005; 94760; 96365; 96372; 96375; 99285

== ENCOUNTER 2022-10-21 12:27 | Inpatient (IN) | payer MEDICARE, OTHER ==
--- NOTE | 2022-10-21 12:46 | ED ---
General Adult HPI - General Stated complaint: Low O2 Time Seen by Provider: 10/21/22 12:28 Source: EMS, RN notes reviewed, old records reviewed Limitations: altered mental status - History of Present Illness Initial comments: 81-year-old female who presents for evaluation of hypoxia. Paramedics report t hat patient be placed on a nonrebreather and was showing oxygen saturations in the 60s and 70s. Upon arrival paramedics did obtain a pulse ox in the 90s. The patient was transported for evaluation. She's not able to give any historical details. Upon arrival pulse ox is 94-97 on room air. There is no respiratory distress noted. Further history will be obtained from long-term staff. - Related Data Home Medications Medication Instructions Recorded Confirmed Apixaban [Eliquis] 5 mg PO BID 09/19/22 10/21/22 Aspirin EC [Ecotrin Low Dose] 81 mg PO DAILY 09/19/22 10/21/22 Atorvastatin Calcium 20 mg PO HS 09/19/22 10/21/22 Cholecalciferol [Vitamin D3 (25 25 mcg PO DAILY 09/19/22 10/21/22 Mcg = 1000 Iu)] Cranberry Fruit Extract [Cranberry] 500 mg PO BID 09/19/22 10/21/22 Ipratropium-Albuterol Nebulize 3 ml INHALATION RT-Q6H PRN 09/19/22 10/21/22 [Duoneb 0.5 mg-3 mg/3 ml Soln] Lactulose 20 gm PO DAILY 09/19/22 10/21/22 Sacubitril/Valsartan [Entresto 24 2 tab PO BID 09/19/22 10/21/22 mg-26 mg Tablet] Amiodarone [Cordarone] 200 mg PO HS 10/10/22 10/21/22 Famotidine [Pepcid] 20 mg PO BID 10/10/22 10/21/22 LORazepam [Ativan] 0.5 mg PO Q6H PRN 10/10/22 10/21/22 Mirtazapine [Remeron] 15 mg PO HS 10/10/22 10/21/22 Pyridoxine HCl (Vitamin B6) 100 mg PO DAILY 10/10/22 10/21/22 [Vitamin B-6] risperiDONE [RisperDAL] 0.25 mg PO BID 10/10/22 10/21/22 Metoprolol Tartrate [Lopressor] 75 mg PO BID 10/21/22 10/21/22 Previous Rx's Medication Instructions Recorded Acetaminophen Tab [Tylenol] 325 mg PO Q6HR PRN tab 09/23/22 Torsemide [Demadex] 20 mg PO DAILY tab 09/23/22 Allergies Allergy/AdvReac Type Severity Reaction Status Date / Time No Known Allergies Allergy Verified 10/21/22 13:21 Review of Systems ROS Statement: Those systems with pertinent positive or pertinent negative responses have been documented in the HPI. ROS Other: All systems not noted in ROS Statement are negative. Past Medical History Past Medical History: Atrial Fibrillation, Heart Failure, Dementia, Hyperlipidemia, Memory Impairment, Pneumonia, Renal Disease, Thyroid Disorder History of Any Multi-Drug Resistant Organisms: None Reported Past Surgical History: Unable to Obtain Past Anesthesia/Blood Transfusion Reactions: Unable to Obtain Past Psychological History: Schizoaffective Disorder Smoking Status: Unknown if ever smoked Past Alcohol Use History: None Reported Past Drug Use History: None Reported General Exam General appearance: alert, in no apparent distress Head exam: Present: atraumatic, normocephalic Eye exam: Present: normal appearance, PERRL ENT exam: Present: mucous membranes dry Respiratory exam: Present: normal lung sounds bilaterally. Absent: respiratory distress, wheezes, rales, rhonchi Cardiovascular Exam: Present: regular rate, normal rhythm GI/Abdominal exam: Present: soft. Absent: distended, tenderness, guarding Extremities exam: Present: normal inspection, normal capillary refill. Absent: pedal edema Neurological exam: Present: alert. Absent: oriented X3 Skin exam: Present: warm, dry, intact Course Vital Signs 10/21/22 10/21/22 10/21/22 12:31 12:51 13:54 Temperature 94.4 F L Pulse Rate 81 96 Respiratory 16 14 18 Rate Blood Pressure 101/76 110/76 O2 Sat by Pulse 94 L 97 Oximetry 10/21/22 15:00 Temperature Pulse Rate 86 Respiratory 18 Rate Blood Pressure 109/67 O2 Sat by Pulse 90 L Oximetry EKG Findings - EKG Comments: EKG Findings:: EKG: Atrial fibrillation, rate of 82, QRS duration 98, QTC [address] segment elevation. - EKG Results: EKG: interpreted by [facility] Medical Decision Making - Medical Decision Making Was pt. sent in by a medical professional or institution ([facility], [facility] [employer] [employer], urgent care, hospital, or long-term...) When possible be specific @ -Sent in by long-term Did you speak to anyone other than the patient for history (EMS, parent, family, police, friend...)? What history was obtained from this source @ -[Patient's son who is at bedside Did you review nursing and triage notes (agree or disagree)? Why? @ -[I reviewed and agree with nursing and triage notes] Were old charts reviewed (outside hosp., previous admission, EMS record, old EKG, old radiological studies, urgent care reports/EKG's, long-term records)? Report findings @ -[Reviewed prior admission notes, prior laboratory testing Differential Diagnosis (chest pain, altered mental status, abdominal pain women, abdominal pain men, vaginal bleeding, weakness, fever, dyspnea, syncope, headache, dizziness, GI bleed, back pain, seizure, CVA, palpatations, mental health, musculoskeletal)? @ -Differential Dyspnea: Coronary syndrome, arrhythmia, tamponade, asthma, COPD, pulmonary embolism, pneumonia, pneumothorax, pulmonary effusion, anaphylaxis, diabetic ketoacidosis, flailed chest, pulmonary contusion, diaphragmatic rupture, anemia, neuromuscular, this is not meant to be an all-inclusive list. Differential Weakness: Hypoglycemia, shock, sepsis, hyponatremia, anemia, infection, GA, ETOH, adverse medicine reaction, overdose, stroke, this is not meant to be an all-inclusive list. EKG interpreted by me (3pts min.). @ -[As above] X-rays interpreted by me (1pt min.). @ -Chest x-ray showing bilateral pleural effusion and cardiomegaly CT interpreted by me (1pt min.). @ -[None done] U/S interpreted by me (1pt. min.). @ -[None done] What testing was considered but not performed or refused? (CT, X-rays, U/S, labs)? Why? @ -[None] What meds were considered but not given or refused? Why? @ -[None] Did you discuss the management of the patient with other professionals (alessia rossfessdiana i.e. [facility]on, CIRC[employer] SAW FILER, lab, RT, psych nurse, health and social care teacher, core maker helper, teacher, adult probation officer, corrections caseworker)? Give summary @ -Discussed with admitting team. Was smoking cessation discussed for >3mins.? @ -[No] Was critical care preformed (if so, how long)? @ -[No] Were there social determinants of health that impacted care today? How? (Homelessness, low income, unemployed, alcoholism, drug addiction, transportation, low edu. Level, literacy, decrease access to med. care, [facility], rehab)? @ -[No] Was there de-escalation of care discussed even if they declined (Discuss DNR or withdrawal of care, Hospice)? DNR status @ -DO NOT RESUSCITATE What co-morbidities impacted this encounter? (DM, HTN, Smoking, COPD, CAD, Cancer, CVA, ARF, Chemo, Hep., AIDS, mental health diagnosis, sleep apnea, morbid obesity)? @ -Dementia, CHF, recurrent UTI Was patient admitted / discharged? Hospital course, mention meds given and route, prescriptions, significant lab abnormalities, going to OR and other pertinent info. @ -Patient will be admitted to this institution for hypothermia and UTI. Case discussed with sound physician group. Undiagnosed new problem with uncertain prognosis? @ -[No] Drug Therapy requiring intensive monitoring for toxicity (Heparin, Nitro, Insulin, Cardizem)? @ -[No] Were any procedures done? @ -[No] Diagnosis/symptom? @ -[UTI, hypothermia] Acute, or Chronic, or Acute on Chronic? @ -[Acute Uncomplicated (without systemic symptoms) or Complicated (systemic symptoms)? @ -[Complicated] Side effects of treatment? @ -[No] Exacerbation, Progression, or Severe Exacerbation? @ -[No] Poses a threat to life or bodily function? How? (Chest pain, USA, GA, pneumonia, PE, COPD, DKA, ARF, appy, cholecystitis, CVA, Diverticulitis, Homicidal, Suicidal, threat to staff... and all critical care pts) @ -[Yes, progression to sepsis and multiorgan failure] - Lab Data Result diagrams: 10/21/22 13:40 10/21/22 13:40 Lab Results 10/21/22 10/21/22 10/21/22 Range/Units 13:21 13:40 13:40 WBC 4.5 (3.8-10.6) k/uL RBC 5.24 (3.80-5.40) m/uL Hgb 14.5 (11.4-16.0) gm/dL Hct 46.0 (34.0-46.0) % MCV 87.7 (80.0-100.0) fL MCH 27.6 (25.0-35.0) pg MCHC 31.4 (31.0-37.0) g/dL RDW 16.7 H (11.5-15.5) % Plt Count 185 (150-450) k/uL MPV 9.6 Neutrophils % 69 % Lymphocytes % 18 % Monocytes % 7 % Eosinophils % 3 % Basophils % 1 % Neutrophils # 3.1 (1.3-7.7) k/uL Lymphocytes # 0.8 L (1.0-4.8) k/uL Monocytes # 0.3 (0-1.0) k/uL Eosinophils # 0.1 (0-0.7) k/uL Basophils # 0.0 (0-0.2) k/uL Hypochromasia Moderate Poikilocytosis Slight Anisocytosis Slight PT 14.3 H (9.0-12.0) sec INR 1.4 H (<1.2) APTT 28.8 (22.0-30.0) sec Sodium (137-145) mmol/L Potassium (3.5-5.1) mmol/L Chloride (98-107) mmol/L Carbon Dioxide (22-30) mmol/L Anion Gap mmol/L BUN (7-17) mg/dL Creatinine (0.52-1.04) mg/dL Est GFR (CKD-EPI)AfAm (>60 ml/min/1.73 sqM) Est GFR (CKD-EPI)NonAf (>60 ml/min/1.73 sqM) Glucose (74-99) mg/dL POC Glucose (mg/dL) 84 (70-110) mg/dL POC Glu Utility Appraiser ID Higinio Galeana Plasma Lactic Acid Umang (0.7-2.0) mmol/L Calcium (8.4-10.2) mg/dL Magnesium (1.6-2.3) mg/dL Total Bilirubin (0.2-1.3) mg/dL AST (14-36) U/L ALT (4-34) U/L Alkaline Phosphatase (38-126) U/L Troponin I (0.000-0.034) ng/mL NT-Pro-B Natriuret Pep pg/mL Total Protein (6.3-8.2) g/dL Albumin (3.5-5.0) g/dL TSH (0.465-4.680) mIU/L Urine Color Urine Appearance (Clear) Urine pH (5.0-8.0) Ur Specific [place] (1.001-1.035) Urine Protein (Negative) Urine Glucose (UA) (Negative) Urine Ketones (Negative) Urine Blood (Negative) Urine Nitrite (Negative) Urine Bilirubin (Negative) Urine Urobilinogen (<2.0) mg/dL Ur Leukocyte Esterase (Negative) Urine RBC (0-5) /hpf Urine WBC (0-5) /hpf Ur Squamous Epith Cells (0-4) /hpf Urine Bacteria (None) /hpf Hyaline Casts (0-2) /lpf Urine Mucus (None) /hpf 10/21/22 10/21/22 10/21/22 Range/Units 13:40 13:40 13:40 WBC (3.8-10.6) k/uL RBC (3.80-5.40) m/uL Hgb (11.4-16.0) gm/dL Hct (34.0-46.0) % MCV (80.0-100.0) fL MCH (25.0-35.0) pg MCHC (31.0-37.0) g/dL RDW (11.5-15.5) % Plt Count (150-450) k/uL MPV Neutrophils % % Lymphocytes % % Monocytes % % Eosinophils % % Basophils % % Neutrophils # (1.3-7.7) k/uL Lymphocytes # (1.0-4.8) k/uL Monocytes # (0-1.0) k/uL Eosinophils # (0-0.7) k/uL Basophils # (0-0.2) k/uL Hypochromasia Poikilocytosis Anisocytosis PT (9.0-12.0) sec INR (<1.2) APTT (22.0-30.0) sec Sodium 145 (137-145) mmol/L Potassium 4.0 (3.5-5.1) mmol/L Chloride 100 (98-107) mmol/L Carbon Dioxide 37 H (22-30) mmol/L Anion Gap 8 mmol/L BUN 34 H (7-17) mg/dL Creatinine 1.15 H (0.52-1.04) mg/dL Est GFR (CKD-EPI)AfAm 51 (>60 ml/min/1.73 sqM) Est GFR (CKD-EPI)NonAf 45 (>60 ml/min/1.73 sqM) Glucose 79 (74-99) mg/dL POC Glucose (mg/dL) (70-110) mg/dL POC Glu Utility Appraiser ID Plasma Lactic Acid Umang 1.9 (0.7-2.0) mmol/L Calcium 9.6 (8.4-10.2) mg/dL Magnesium 1.9 (1.6-2.3) mg/dL Total Bilirubin 2.7 H (0.2-1.3) mg/dL AST 45 H (14-36) U/L ALT 28 (4-34) U/L Alkaline Phosphatase 147 H (38-126) U/L Troponin I <0.012 (0.000-0.034) ng/mL NT-Pro-B Natriuret Pep pg/mL Total Protein 7.5 (6.3-8.2) g/dL Albumin 3.4 L (3.5-5.0) g/dL TSH 2.490 (0.465-4.680) mIU/L Urine Color Urine Appearance (Clear) Urine pH (5.0-8.0) Ur Specific [place] (1.001-1.035) Urine Protein (Negative) Urine Glucose (UA) (Negative) Urine Ketones (Negative) Urine Blood (Negative) Urine Nitrite (Negative) Urine Bilirubin (Negative) Urine Urobilinogen (<2.0) mg/dL Ur Leukocyte Esterase (Negative) Urine RBC (0-5) /hpf Urine WBC (0-5) /hpf Ur Squamous Epith Cells (0-4) /hpf Urine Bacteria (None) /hpf Hyaline Casts (0-2) /lpf Urine Mucus (None) /hpf 10/21/22 10/21/22 Range/Units 13:40 15:14 WBC (3.8-10.6) k/uL RBC (3.80-5.40) m/uL Hgb (11.4-16.0) gm/dL Hct (34.0-46.0) % MCV (80.0-100.0) fL MCH (25.0-35.0) pg MCHC (31.0-37.0) g/dL RDW (11.5-15.5) % Plt Count (150-450) k/uL MPV Neutrophils % % Lymphocytes % % Monocytes % % Eosinophils % % Basophils % % Neutrophils # (1.3-7.7) k/uL Lymphocytes # (1.0-4.8) k/uL Monocytes # (0-1.0) k/uL Eosinophils # (0-0.7) k/uL Basophils # (0-0.2) k/uL Hypochromasia Poikilocytosis Anisocytosis PT (9.0-12.0) sec INR (<1.2) APTT (22.0-30.0) sec Sodium (137-145) mmol/L Potassium (3.5-5.1) mmol/L Chloride (98-107) mmol/L Carbon Dioxide (22-30) mmol/L Anion Gap mmol/L BUN (7-17) mg/dL Creatinine (0.52-1.04) mg/dL Est GFR (CKD-EPI)AfAm (>60 ml/min/1.73 sqM) Est GFR (CKD-EPI)NonAf (>60 ml/min/1.73 sqM) Glucose (74-99) mg/dL POC Glucose (mg/dL) (70-110) mg/dL POC Glu Utility Appraiser ID Plasma Lactic Acid Umang (0.7-2.0) mmol/L Calcium (8.4-10.2) mg/dL Magnesium (1.6-2.3) mg/dL Total Bilirubin (0.2-1.3) mg/dL AST (14-36) U/L ALT (4-34) U/L Alkaline Phosphatase (38-126) U/L Troponin I (0.000-0.034) ng/mL NT-Pro-B Natriuret Pep 2910 pg/mL Total Protein (6.3-8.2) g/dL Albumin (3.5-5.0) g/dL TSH (0.465-4.680) mIU/L Urine Color Yellow Urine Appearance Cloudy H (Clear) Urine pH 5.5 (5.0-8.0) Ur Specific [place] 1.017 (1.001-1.035) Urine Protein 1+ H (Negative) Urine Glucose (UA) Negative (Negative) Urine Ketones Negative (Negative) Urine Blood Large H (Negative) Urine Nitrite Negative (Negative) Urine Bilirubin Negative (Negative) Urine Urobilinogen 6.0 (<2.0) mg/dL Ur Leukocyte Esterase Large H (Negative) Urine RBC >182 H (0-5) /hpf Urine WBC 54 H (0-5) /hpf Ur Squamous Epith Cells 3 (0-4) /hpf Urine Bacteria Rare H (None) /hpf Hyaline Casts 428 H (0-2) /lpf Urine Mucus Few H (None) /hpf Disposition Clinical Impression: UTI (urinary tract infection), Hypothermia Disposition: ADMITTED IP TO THIS HOSP Condition: Stable Is patient prescribed a controlled substance at d/c from ED?: No Referrals: Kristi Moctezuma DO [Primary Care Provider] - 1-2 days Time of Disposition: 16:11
[2022-10-21] MEDS ORDERED: SODIUM CHLORIDE 0.9% 500 ML 500 ML IV ONE (12:56)
[2022-10-21 13:22] LABS: Glucose,Whole Blood 84 mg/dL (70-110)
[2022-10-21 14:07] LABS: Anisocytosis Slight; Basophils % (A) 1 %; Eosinophils # (A) 0.1 k/uL (0-0.7); Eosinophils % (A) 3 %; HGB 14.5 gm/dL (11.4-16.0); Hypochromasia Moderate; Lymphocytes # (A) 0.8 k/uL (1.0-4.8); Lymphocytes % (A) 18 %; MCH 27.6 pg (25.0-35.0); MCHC 31.4 g/dL (31.0-37.0); MCV 87.7 fL (80.0-100.0); Mean Platelet Volume 9.6; Monocytes # (A) 0.3 k/uL (0-1.0); Monocytes % (A) 7 %; Neutrophils # (A) 3.1 k/uL (1.3-7.7); Neutrophils % (A) 69 %; Platelet Count 185 k/uL (150-450); Poikilocytosis Slight; RBC 5.24 m/uL (3.80-5.40); RDW 16.7 % (11.5-15.5); WBC 4.5 k/uL (3.8-10.6)
[2022-10-21 14:09] LABS: INR 1.4 (<1.2); Partial Thromboplastin Time 28.8 sec (22.0-30.0); Prothrombin Time 14.3 sec (9.0-12.0)
--- NOTE | 2022-10-21 14:18 | XR ---
EXAMINATION TYPE: XR chest 1V portable DATE OF EXAM: 10/21/2022 2:11 PM COMPARISON: Chest radiographs from 10/09/2022 TECHNIQUE: XR chest 1V portable Portable AP radiograph of the chest. CLINICAL INDICATION:Female, 81 years old with history of low SPO2 complaint; FINDINGS: Lungs/Pleura: Similar moderate size right pleural effusion with associated atelectasis. Trace left pl eural effusion. No pneumothorax. Pulmonary vascularity: Pulmonary vascular congestion. Heart/mediastinum: Cardiomediastinal silhouette is enlarged and stable. Atherosclerotic calcificatio ns are seen in the aorta. Musculoskeletal: No acute osseous pathology. Other: Surgical clips in the left axilla. IMPRESSION: Similar cardiomegaly, pulmonary vascular congestion and bilateral pleural effusions. Correlate with B [employer] LAB ANALYST for congestive heart failure.
[2022-10-21 14:41] LABS: ALT 28 U/L (4-34); African American GFR (CKD) 51 (>60 ml/min/1.73 sqM); Albumin 3.4 g/dL (3.5-5.0); Anion Gap 8 mmol/L; Blood Urea Nitrogen 34 mg/dL (7-17); Calcium 9.6 mg/dL (8.4-10.2); Carbon Dioxide 37 mmol/L (22-30); Chloride 100 mmol/L (98-107); Glucose 79 mg/dL (74-99); Magnesium 1.9 mg/dL (1.6-2.3); Non-African American GFR(CKD) 45 (>60 ml/min/1.73 sqM); Sodium 145 mmol/L (137-145); Total Bilirubin 2.7 mg/dL (0.2-1.3); Total Protein 7.5 g/dL (6.3-8.2)
[2022-10-21 14:43] LABS: AST 45 U/L (14-36); Alkaline Phosphatase 147 U/L (38-126)
[2022-10-21 15:31] LABS: Appearance,Urine Cloudy (Clear); Bacteria,Urine Rare /hpf; Bilirubin,Urine Negative (Negative); Blood,Urine Large (Negative); Color,Urine Yellow; Glucose,Urine (UA) Negative (Negative); Hyaline Casts,Urine 428 /lpf (0-2); Ketones,Urine Negative (Negative); Leukocyte Esterase,Urine Large (Negative); Mucus,Urine Few /hpf; Nitrite,Urine Negative (Negative); PH, Urine 5.5 (5.0-8.0); Protein,Urine 1+ (Negative); RBC,Urine >182 /hpf (0-5); Specific Gravity,Urine 1.017 (1.001-1.035); Squamous Epithelial Cell,Urine 3 /hpf (0-4); WBC,Urine 54 /hpf (0-5)
[2022-10-21] MEDS ORDERED: cefTRIAXone IN SWFI 1,000 MG/10 ML SYRINGE IVP STA (15:33)
[2022-10-21] MEDS ORDERED: ACETAMINOPHEN TAB 325 MG TAB PO PRN ×2 (16:09→16:55)
[2022-10-21] MEDS ORDERED: NALOXONE 0.4 MG/ML 1 ML VIAL IV PRN (16:09)
[2022-10-21] MEDS ORDERED: LORazepam 0.5 MG TAB PO PRN (16:55)
[2022-10-21] MEDS ORDERED: IPRATROPIUM-ALBUTEROL 3 ML NEB INHALATION PRN (16:55)
[2022-10-21] MEDS ORDERED: IPRATROPIUM 0.5 MG/2.5 ML NEBU INHALATION PRN (17:10)
[2022-10-21] MEDS ORDERED: ALBUTEROL NEBULIZED 2.5 MG/3 ML INHALATION PRN (17:10)
--- NOTE | 2022-10-21 17:14 | P.HPIM ---
History of Present Illness H&P Date: 10/21/22 This is an 81-year-old female who presents to [facility] from [facility]. Patient was found to be hypoxic with increased confusion. Per documentation, EMS was called and patient was placed on a nonrebreather. Initial readings showed oxygen saturations in the 60s and 70s. Upon arrival paramedics obtained a pulse ox in the 90s. Patient was also found to be hypothermic with a temp of 94.1'F. Patient has underlying moderate to severe dementia and is wheelchair-bound. Patient was discharged from [facility] on 10/13/2022. Patient was admitted for similar symptoms. Upon further evaluation in the emergency department patient was found to have bilateral pulmo nary congestion and evidence of UTI. Patient has an extensive cardiovascular history consistent with cardiomyopathy. Echo from last admission showed an ejection fraction around 40% as well as valvular heart disease. Patient has a history of chronic atrial fibrillation and is on anticoagulation. Further medical history includes hypertension, dyslipidemia and debility. Patient's son Fab was in the room and most of HPI was taken from him. Patient moans but does not answer to questions. I spoke to to her son Fab about hospice. He was open to that recommendation patient is a DO NOT RESUSCITATE. Review of Systems Unable to obtain due to patient's mental status Past Medical History Past Medical History: Atrial Fibrillation, Heart Failure, Dementia, Hyperlipidemia, Memory Impairment, Pneumonia, Renal Disease, Thyroid Disorder History of Any Multi-Drug Resistant Organisms: None Reported Past Surgical History: Unable to Obtain Past Anesthesia/Blood Transfusion Reactions: Unable to Obtain Past Psychological History: Schizoaffective Disorder Smoking Status: Unknown if ever smoked Past Alcohol Use History: None Reported Past Drug Use History: None Reported Medications and Allergies Home Medications Medication Instructions Recorded Confirmed Type Apixaban [Eliquis] 5 mg PO BID 09/19/22 10/21/22 History Aspirin EC [Ecotrin Low Dose] 81 mg PO DAILY 09/19/22 10/21/22 History Atorvastatin Calcium 20 mg PO HS 09/19/22 10/21/22 History Cholecalciferol [Vitamin D3 (25 25 mcg PO DAILY 09/19/22 10/21/22 History Mcg = 1000 Iu)] Cranberry Fruit Extract [Cranberry] 500 mg PO BID 09/19/22 10/21/22 History Ipratropium-Albuterol Nebulize 3 ml INHALATION RT-Q6H PRN 09/19/22 10/21/22 History [Duoneb 0.5 mg-3 mg/3 ml Soln] Lactulose 20 gm PO DAILY 09/19/22 10/21/22 History Sacubitril/Valsartan [Entresto 24 2 tab PO BID 09/19/22 10/21/22 History mg-26 mg Tablet] Acetaminophen Tab [Tylenol] 325 mg PO Q6HR PRN tab 09/23/22 10/21/22 Rx Torsemide [Demadex] 20 mg PO DAILY tab 09/23/22 10/21/22 Rx Amiodarone [Cordarone] 200 mg PO HS 10/10/22 10/21/22 History Famotidine [Pepcid] 20 mg PO BID 10/10/22 10/21/22 History LORazepam [Ativan] 0.5 mg PO Q6H PRN 10/10/22 10/21/22 History Mirtazapine [Remeron] 15 mg PO HS 10/10/22 10/21/22 History Pyridoxine HCl (Vitamin B6) 100 mg PO DAILY 10/10/22 10/21/22 History [Vitamin B-6] risperiDONE [RisperDAL] 0.25 mg PO BID 10/10/22 10/21/22 History Metoprolol Tartrate [Lopressor] 75 mg PO BID 10/21/22 10/21/22 History Allergies Allergy/AdvReac Type Severity Reaction Status Date / Time No Known Allergies Allergy Verified 10/21/22 13:21 Physical Exam Osteopathic Statement: *. No significant issues noted on an osteopathic structural exam other than those noted in the History and Physical/Consult. Vitals: Vital Signs Temp Pulse Resp BP Pulse Ox 10/21/22 15:00 86 18 109/67 90 L 10/21/22 13:54 96 18 110/76 97 10/21/22 12:51 94.4 F L 14 10/21/22 12:31 81 16 101/76 94 L Intake and Output 10/21/22 10/21/22 10/21/22 06:59 14:59 22:59 Other: Weight 68.039 kg General: [non toxic], [no distress], [appears at stated age] Derm: [warm], [dry] Head: [atraumatic], [normocephalic], [symmetric] Eyes: [EOMI], [no lid lag], [anicteric sclera] Mouth: [no lip lesion], [mucus membranes moist] Cardiovascular: Irregular, [increased posterior tibial pulse bilateral], Lungs: [Diminished bilateral], [no rhonchi, no rales] , [no accessory muscle use] Abdominal: [soft], [ nontender to palpation], [no guarding], [no appreciable organomegaly] Ext: [no gross muscle atrophy], [no edema], [no contractures] Neuro: [ CN II-XI grossly intact], [no focal neuro deficits] Psych: [Sleeping moans does not respond to questions Results CBC & Chem 7: 10/21/22 13:40 10/21/22 13:40 Labs: Abnormal Lab Results - Last 24 Hours (Table) 10/21/22 10/21/22 10/21/22 Range/Units 13:40 13:40 13:40 RDW 16.7 H (11.5-15.5) % Lymphocytes # 0.8 L (1.0-4.8) k/uL PT 14.3 H (9.0-12.0) sec INR 1.4 H (<1.2) Carbon Dioxide 37 H (22-30) mmol/L BUN 34 H (7-17) mg/dL Creatinine 1.15 H (0.52-1.04) mg/dL Total Bilirubin 2.7 H (0.2-1.3) mg/dL AST 45 H (14-36) U/L Alkaline Phosphatase 147 H (38-126) U/L Albumin 3.4 L (3.5-5.0) g/dL Urine Appearance (Clear) Urine Protein (Negative) Urine Blood (Negative) Ur Leukocyte Esterase (Negative) Urine RBC (0-5) /hpf Urine WBC (0-5) /hpf Urine Bacteria (None) /hpf Hyaline Casts (0-2) /lpf Urine Mucus (None) /hpf 10/21/22 Range/Units 15:14 RDW (11.5-15.5) % Lymphocytes # (1.0-4.8) k/uL PT (9.0-12.0) sec INR (<1.2) Carbon Dioxide (22-30) mmol/L BUN (7-17) mg/dL Creatinine (0.52-1.04) mg/dL Total Bilirubin (0.2-1.3) mg/dL AST (14-36) U/L Alkaline Phosphatase (38-126) U/L Albumin (3.5-5.0) g/dL Urine Appearance Cloudy H (Clear) Urine Protein 1+ H (Negative) Urine Blood Large H (Negative) Ur Leukocyte Esterase Large H (Negative) Urine RBC >182 H (0-5) /hpf Urine WBC 54 H (0-5) /hpf Urine Bacteria Rare H (None) /hpf Hyaline Casts 428 H (0-2) /lpf Urine Mucus Few H (None) /hpf Thrombosis Risk Factor Assmnt - DVT/VTE Prophylaxis DVT/VTE Prophylaxis: Pharmacologic Prophylaxis ordered Assessment and Plan Assessment: 1. Acute hypoxic respiratory failure secondary to acute systolic CHF Lasix 40 mg IV push every 12 hours Duo nebs every 4 hours Vitals every 4 hours oxgygen as required 2. Sepsis secondary to UTI Rocephin 2mg IV piggyback every 24 hours Await reflex culture Await blood culture 3. Hyperbilirubinemia with elevated transaminase likely chronic CT abdomen and pelvis from 09/22/2022 revealed Thickening of the gallbladder wall with indeterminate significance 4. History of atrial fib currently on Eliquis Resume Eliquis 5 mg by mouth twice a day Resume amiodarone 200 mg by mouth daily at bedtime Resume metoprolol only if blood pressure allows parameters placed Entresto held 4. History of dyslipidemia Resume Lipitor 20 mg by mouth daily at bedtime 5. History of severe dementia Resume home medications risperdal and Remeron Fall precautions 6. Due to recurrent hospital stays and multiple comorbidities, hospice was discussed with patient's son Fab, who is DURABLE POWER OF HEALTH AND SAFETY TECH. Patient was made DO NOT RESUSCITATE consult to hospice was placed. Disposition: Possible return to [facility] with hospice in 24-48 hours Greater than 35 minutes spent coordinating care, counseling patient's son Anne-Marie, and documenting.
[2022-10-21] MEDS: PANTOPRAZOLE 40 MG/10 ML VIAL IVP SCH (17:23)
[2022-10-21] MEDS ORDERED: IPRATROPIUM-ALBUTEROL 3 ML NEB INHALATION SCH (20:00)
[2022-10-21] MEDS: ALBUTEROL NEBULIZED 2.5 MG/3 ML INHALATION SCH (20:06)
[2022-10-21] MEDS: IPRATROPIUM 0.5 MG/2.5 ML NEBU INHALATION SCH (20:06)
[2022-10-21] MEDS: METOPROLOL TARTRATE 25 MG TAB PO SCH (20:18)
[2022-10-21] MEDS: AMIODARONE 200 MG TAB PO SCH (20:26)
[2022-10-21] MEDS: FAMOTIDINE 20 MG TAB PO SCH (20:27)
[2022-10-21] MEDS: ATORVASTATIN 20 MG TAB PO SCH (20:27)
[2022-10-21] MEDS: APIXABAN 5 MG TAB PO SCH (20:27)
[2022-10-21] MEDS: MIRTAZAPINE 15 MG TAB PO SCH (20:27)
[2022-10-21] MEDS: FUROSEMIDE 10 MG/ML 4 ML VIAL IV SCH (20:27)
[2022-10-21] MEDS: risperiDONE 0.25 MG TAB PO SCH (20:28)
[2022-10-21] MEDS ORDERED: NON FORMULARY DRUG (Cranberry Fruit Extract [Cranberry] 500 MG Tablet) PO SCH (21:00)
[2022-10-22] MEDS: ALBUTEROL NEBULIZED 2.5 MG/3 ML INHALATION SCH ×6 (00:05→20:01)
[2022-10-22] MEDS: IPRATROPIUM 0.5 MG/2.5 ML NEBU INHALATION SCH ×6 (00:05→20:02)
[2022-10-22 09:04] LABS: Anisocytosis Slight; Basophils % (A) 0 %; Eosinophils % (A) 1 %; HCT 43.4 % (34.0-46.0); HGB 13.3 gm/dL (11.4-16.0); Hypochromasia Marked; Lymphocytes # (A) 0.7 k/uL (1.0-4.8); Lymphocytes % (A) 11 %; MCHC 30.6 g/dL (31.0-37.0); MCV 88.3 fL (80.0-100.0); Mean Platelet Volume 9.5; Monocytes # (A) 0.5 k/uL (0-1.0); Monocytes % (A) 7 %; Neutrophils # (A) 4.7 k/uL (1.3-7.7); Neutrophils % (A) 78 %; Platelet Count 152 k/uL (150-450); RBC 4.92 m/uL (3.80-5.40); RDW 16.8 % (11.5-15.5); WBC 6.1 k/uL (3.8-10.6)
[2022-10-22 09:44] LABS: ALT 24 U/L (4-34); AST 35 U/L (14-36); African American GFR (CKD) 45 (>60 ml/min/1.73 sqM); Albumin/Globulin Ratio 0.8; Alkaline Phosphatase 133 U/L (38-126); Anion Gap 11 mmol/L; Blood Urea Nitrogen 33 mg/dL (7-17); Calcium 9.4 mg/dL (8.4-10.2); Carbon Dioxide 30 mmol/L (22-30); Chloride 105 mmol/L (98-107); Globulin 3.6 g/dL; Glucose 92 mg/dL (74-99); Non-African American GFR(CKD) 39 (>60 ml/min/1.73 sqM); Phosphorus 3.4 mg/dL (2.5-4.5); Potassium 3.3 mmol/L (3.5-5.1); Sodium 146 mmol/L (137-145); Total Bilirubin 1.8 mg/dL (0.2-1.3); Total Protein 6.6 g/dL (6.3-8.2)
[2022-10-22] MEDS: APIXABAN 5 MG TAB PO SCH ×2 (10:55→22:40)
[2022-10-22] MEDS: ASPIRIN 81 MG PO SCH (10:55)
[2022-10-22] MEDS: FAMOTIDINE 20 MG TAB PO SCH ×2 (10:56→22:39)
[2022-10-22] MEDS: CHOLECALCIFEROL 25 MCG (1000 IU) TABLET PO SCH (10:56)
[2022-10-22] MEDS: PANTOPRAZOLE 40 MG/10 ML VIAL IVP SCH (10:57)
[2022-10-22] MEDS: FUROSEMIDE 10 MG/ML 4 ML VIAL IV SCH ×2 (10:57→22:40)
[2022-10-22] MEDS: PYRIDOXINE 50 MG TAB PO SCH (10:57)
[2022-10-22] MEDS: LACTULOSE 20 GM/30 ML CUP PO SCH (10:57)
[2022-10-22] MEDS: METOPROLOL TARTRATE 25 MG TAB PO SCH ×2 (10:57→22:52)
[2022-10-22] MEDS: risperiDONE 0.25 MG TAB PO SCH ×2 (10:58→22:40)
[2022-10-22] MEDS ORDERED: Potassium Replacement Protocol 1 EACH MISC MISCELLANE PRN (11:23)
--- NOTE | 2022-10-22 11:46 | P.PN ---
Subjective Progress Note Date: 10/22/22 Hospital course: Patient is a very pleasant 81-year-old female with an extensive cardiovascular history consistent with cardiomyopathy, systolic heart failure, valvular heart disease, and chronic atrial fibrillation. She presented to the hospital from [facility] on 10/21/22 after being reportedly found to be hypoxic with increased confusion. Patient underwent full evaluation. EKG was completed showing atrial fibrillation at 82 bpm with no noted T-wave or ST abnormalities showing no signs of acute ischemia upon personal review and interpretation. Chest x-ray revealing similar cardiomegaly with pulmonary vascular congestion and bilateral pleural effusions. Labs completed and reviewed. CBC unremarkable. BMP revealing slightly elevated renal function with BUN of 34, creatinine 1.15, and GFR 45. Liver profile revealing hyperbilirubinemia with elevated total bili of 2.7 and elevated liver enzymes with ALT of 45 and alkaline phosphatase of 147. Troponin negative at less than 0.012 and pro-BMP 2910. Urinalysis positive for infection. Patient was admitted under our services with consultation to palliative care for discussion on the palliative care versus hospice care. Physical exam: Vital signs reviewed and stable. General: Nontoxic Derm: Skin warm and dry, normal coloration for ethnicity. Head: Atraumatic, normocephalic and symmetric. Eyes: EOMs intact, no lid lag, and anicteric sclera Mouth: no lip lesions, mucus membranes moist Cardiovascular: Irregularly irregular, systolic murmur, positive posterior tibial pulses bilaterally, and cap refill < 2 seconds. Lungs: Respirations even, regular, and unlabored on room air. Lungs diminished, no rhonchi, no rales, no wheezing, and no accessory muscle usage. Abdominal: soft, nontender to palpation, no guarding, no appreciable organomegaly Ext: ROM intact. No gross muscle atrophy, scant lower extremity edema, no contractures Neuro: Face symmetrical, no noted focal neuro deficits Psych: Patient with limited interaction moaning and only answering yes and no questions at this time. Assessment and Plan of Care: Acute hypoxic respiratory failure Acute on chronic systolic congestive heart failure with previously known EF of 40% Chronic atrial fibrillation Cardiovascular disease Hyperbilirubinemia, improved Elevated liver enzymes, improving Hypokalemia -Palliative/hospice care is meeting with patient's family later today. -Pending further recommendations from palliative/hospice care patient to continue with daily medication regimen consisting of amiodarone, Eliquis, aspirin, atorvastatin, and metoprolol. -Patient to continue with IV diuresis with Lasix 40 mg IV every 12 hours for an additional 24 hours and will plan on patient to resume oral Lasix tomorrow. -Discussed plan of care with palliative care PROJECT ENGINEERING MANAGER. Plan is to meet with patient's family and make arrangements for home with likely discharge home on hospice tomorrow. -Order placed for potassium replacement with K Dur 40 mEq. We will repeat morning BMP and magnesium while patient is on IV diuresis. -Orders placed for strict I's and O's while patient on IV diuresis as well. CODE STATUS: Full code DVT prophylaxis: Eliquis Discussed with: Palliative care PROJECT ENGINEERING MANAGER, social services aide and RN Anticipated discharge date: clinical course to determine Anticipated discharge place: return to SNF versus home with hospice Patient was seen independently by Nurse Pracitioner. This document was prepared using quickhuddle dictation software. Please allow for errors in pilot steam yacht, while rare they do occur. Felix Haskins PROJECT ENGINEERING MANAGER rendered care for this patient independently, reviewed the findings and plan as documented in the note above. I did not physically speak with or examine the patient on this date. Objective - Vital Signs Vital signs: Vital Signs Temp 96.9 F L 10/22/22 07:45 Pulse 88 10/22/22 10:07 Resp 18 10/22/22 09:10 BP 102/68 10/22/22 07:45 Pulse Ox 100 10/22/22 07:45 FiO2 Intake & Output 10/21/22 10/22/22 10/22/22 18:59 06:59 18:59 Intake Total 0 Balance 0 Weight 68.039 kg 69 kg Intake: Oral 0 Other: Voiding Method Indwelling Catheter Indwelling Catheter # Bowel Movements 1 - Labs CBC & Chem 7: 10/27/22 12:10 10/27/22 12:10 Labs: Abnormal Lab Results - Last 24 Hours (Table) 10/21/22 10/21/22 10/21/22 Range/Units 13:40 13:40 13:40 MCHC (31.0-37.0) g/dL RDW 16.7 H (11.5-15.5) % Lymphocytes # 0.8 L (1.0-4.8) k/uL PT 14.3 H (9.0-12.0) sec INR 1.4 H (<1.2) Sodium (137-145) mmol/L Potassium (3.5-5.1) mmol/L Carbon Dioxide 37 H (22-30) mmol/L BUN 34 H (7-17) mg/dL Creatinine 1.15 H (0.52-1.04) mg/dL Total Bilirubin 2.7 H (0.2-1.3) mg/dL AST 45 H (14-36) U/L Alkaline Phosphatase 147 H (38-126) U/L Albumin 3.4 L (3.5-5.0) g/dL Urine Appearance (Clear) Urine Protein (Negative) Urine Blood (Negative) Ur Leukocyte Esterase (Negative) Urine RBC (0-5) /hpf Urine WBC (0-5) /hpf Urine Bacteria (None) /hpf Hyaline Casts (0-2) /lpf Urine Mucus (None) /hpf 10/21/22 10/22/22 10/22/22 Range/Units 15:14 07:31 07:31 MCHC 30.6 L (31.0-37.0) g/dL RDW 16.8 H (11.5-15.5) % Lymphocytes # 0.7 L (1.0-4.8) k/uL PT (9.0-12.0) sec INR (<1.2) Sodium 146 H (137-145) mmol/L Potassium 3.3 L (3.5-5.1) mmol/L Carbon Dioxide (22-30) mmol/L BUN 33 H (7-17) mg/dL Creatinine 1.28 H (0.52-1.04) mg/dL Total Bilirubin 1.8 H (0.2-1.3) mg/dL AST (14-36) U/L Alkaline Phosphatase 133 H (38-126) U/L Albumin 3.0 L (3.5-5.0) g/dL Urine Appearance Cloudy H (Clear) Urine Protein 1+ H (Negative) Urine Blood Large H (Negative) Ur Leukocyte Esterase Large H (Negative) Urine RBC >182 H (0-5) /hpf Urine WBC 54 H (0-5) /hpf Urine Bacteria Rare H (None) /hpf Hyaline Casts 428 H (0-2) /lpf Urine Mucus Few H (None) /hpf
[2022-10-22] MEDS: POTASSIUM CHLORIDE ER 20 MEQ TAB.ER PO SCH ×2 (11:55→12:52)
[2022-10-22] MEDS: MIRTAZAPINE 15 MG TAB PO SCH (22:39)
[2022-10-22] MEDS: AMIODARONE 200 MG TAB PO SCH (22:40)
[2022-10-22] MEDS: ATORVASTATIN 20 MG TAB PO SCH (22:40)
[2022-10-23] MEDS: IPRATROPIUM 0.5 MG/2.5 ML NEBU INHALATION SCH ×6 (01:20→19:49)
[2022-10-23] MEDS: ALBUTEROL NEBULIZED 2.5 MG/3 ML INHALATION SCH ×6 (01:20→19:49)
[2022-10-23 08:15] LABS: African American GFR (CKD) 60 (>60 ml/min/1.73 sqM); Anion Gap 7 mmol/L; Blood Urea Nitrogen 27 mg/dL (7-17); Calcium 9.2 mg/dL (8.4-10.2); Carbon Dioxide 32 mmol/L (22-30); Chloride 103 mmol/L (98-107); Glucose 80 mg/dL (74-99); Non-African American GFR(CKD) 52 (>60 ml/min/1.73 sqM); Sodium 142 mmol/L (137-145)
[2022-10-23 08:18] LABS: Magnesium 1.7 mg/dL (1.6-2.3); Potassium 3.2 mmol/L (3.5-5.1)
[2022-10-23] MEDS: ASPIRIN 81 MG PO SCH (10:47)
[2022-10-23] MEDS: METOPROLOL TARTRATE 25 MG TAB PO SCH ×2 (10:48→20:50)
[2022-10-23] MEDS: PYRIDOXINE 50 MG TAB PO SCH (10:50)
[2022-10-23] MEDS: CHOLECALCIFEROL 25 MCG (1000 IU) TABLET PO SCH (10:51)
[2022-10-23] MEDS: FAMOTIDINE 20 MG TAB PO SCH (10:51)
[2022-10-23] MEDS: APIXABAN 5 MG TAB PO SCH ×2 (10:51→20:49)
[2022-10-23] MEDS: risperiDONE 0.25 MG TAB PO SCH ×2 (10:51→20:50)
[2022-10-23] MEDS: LACTULOSE 20 GM/30 ML CUP PO SCH (11:02)
--- NOTE | 2022-10-23 11:49 | P.GSCN ---
History of Present Illness Consult date: 10/23/22 Reason for Consult: Goals of care Requesting physician: Felix Haskins History of present illness: The patient is a 81-year-old female with a past medical history of atrial fibrillation - on Eliquis, systolic heart failure with an EF of 40%, valvular heart disease, cardiomyopathy, advanced dementia, and recurrent UTIs. She to the emergency department from her snf on 10/21/22 for evaluation of hypoxia. Paramedics report the patient was showing oxygen saturations in the 60-70%. She was placed on a nonrebreather and was found upon arrival with a SpO2 94-74 on room air. Workup in the emergency department included a chest x- ray which showed cardiomegaly, pulmonary vascular congestion and bilateral pleural effusions. The patient was hypothermic with a temperature of 94.4F, and evidence of a UTI. Palliative care was consulted to contact family and discussed goals of care. The patient had a recent hospital admission 10/09/22-10/13/22 and treated for for hypoxia, metabolic encephalopathy, and heart failure. Review of Systems ROS unobtainable: due to mental status Past Medical History Past Medical History: Atrial Fibrillation, Heart Failure, Dementia, Hyperlipidemia, Memory Impairment, Pneumonia, Renal Disease, Thyroid Disorder Additional Past Medical History / Comment(s): metabolic encephalopathy; uti; skin cancer History of Any Multi-Drug Resistant Organisms: None Reported Past Surgical History: Unable to Obtain Past Anesthesia/Blood Transfusion Reactions: Unable to Obtain Past Psychological History: Schizoaffective Disorder Smoking Status: Unknown if ever smoked Past Alcohol Use History: Unable to Obtain Past Drug Use History: Unable to Obtain Medications and Allergies Home Medications Medication Instructions Recorded Confirmed Type Apixaban [Eliquis] 5 mg PO BID 09/19/22 10/21/22 History Aspirin EC [Ecotrin Low Dose] 81 mg PO DAILY 09/19/22 10/21/22 History Atorvastatin Calcium 20 mg PO HS 09/19/22 10/21/22 History Cholecalciferol [Vitamin D3 (25 25 mcg PO DAILY 09/19/22 10/21/22 History Mcg = 1000 Iu)] Cranberry Fruit Extract [Cranberry] 500 mg PO BID 09/19/22 10/21/22 History Ipratropium-Albuterol Nebulize 3 ml INHALATION RT-Q6H PRN 09/19/22 10/21/22 History [Duoneb 0.5 mg-3 mg/3 ml Soln] Lactulose 20 gm PO DAILY 09/19/22 10/21/22 History Sacubitril/Valsartan [Entresto 24 2 tab PO BID 09/19/22 10/21/22 History mg-26 mg Tablet] Acetaminophen Tab [Tylenol] 325 mg PO Q6HR PRN tab 09/23/22 10/21/22 Rx Torsemide [Demadex] 20 mg PO DAILY tab 09/23/22 10/21/22 Rx Amiodarone [Cordarone] 200 mg PO HS 10/10/22 10/21/22 History Famotidine [Pepcid] 20 mg PO BID 10/10/22 10/21/22 History LORazepam [Ativan] 0.5 mg PO Q6H PRN 10/10/22 10/21/22 History Mirtazapine [Remeron] 15 mg PO HS 10/10/22 10/21/22 History Pyridoxine HCl (Vitamin B6) 100 mg PO DAILY 10/10/22 10/21/22 History [Vitamin B-6] risperiDONE [RisperDAL] 0.25 mg PO BID 10/10/22 10/21/22 History Metoprolol Tartrate [Lopressor] 75 mg PO BID 10/21/22 10/21/22 History Allergies Allergy/AdvReac Type Severity Reaction Status Date / Time No Known Allergies Allergy Verified 10/21/22 13:21 Surgical - Exam Vital Signs Pulse Resp BP Pulse Ox 81 16 101/76 94 L 10/21/22 12:31 10/21/22 12:31 10/21/22 12:31 10/21/22 12:31 General: Well developed, Chronically ill appearing HEENT: Head is atraumatic, normocephalic. Lungs: Respirations even and nonlabored. On RA Abdomen/GI: Soft, nondistended, nontender. Musculoskeletal/ Extremities: No contractures or gross atrophy. + generalized weakness Skin: Warm and dry Neurologic: Moaning and unable to open eyes or follow commands Results - Labs 10/22/22 07:31 10/23/22 07:42 Abnormal Lab Results - Last 24 Hours (Table) 10/23/22 Range/Units 07:42 Potassium 3.2 L (3.5-5.1) mmol/L Carbon Dioxide 32 H (22-30) mmol/L BUN 27 H (7-17) mg/dL Microbiology - Last 24 Hours (Table) 10/21/22 16:58 Blood Culture Gram Stain - Preliminary Blood 10/21/22 16:58 Blood Culture - Final Blood 10/21/22 16:40 Blood Culture - Preliminary Blood No Growth after 24 hours Diabetes panel 10/23/22 Range/Units 07:42 Sodium 142 (137-145) mmol/L Potassium 3.2 L (3.5-5.1) mmol/L Chloride 103 (98-107) mmol/L Carbon Dioxide 32 H (22-30) mmol/L BUN 27 H (7-17) mg/dL Creatinine 1.01 (0.52-1.04) mg/dL Glucose 80 (74-99) mg/dL Calcium 9.2 (8.4-10.2) mg/dL Calcium panel 10/23/22 Range/Units 07:42 Calcium 9.2 (8.4-10.2) mg/dL Pituitary panel 10/23/22 Range/Units 07:42 Sodium 142 (137-145) mmol/L Potassium 3.2 L (3.5-5.1) mmol/L Chloride 103 (98-107) mmol/L Carbon Dioxide 32 H (22-30) mmol/L BUN 27 H (7-17) mg/dL Creatinine 1.01 (0.52-1.04) mg/dL Glucose 80 (74-99) mg/dL Calcium 9.2 (8.4-10.2) mg/dL Adrenal panel 10/23/22 Range/Units 07:42 Sodium 142 (137-145) mmol/L Potassium 3.2 L (3.5-5.1) mmol/L Chloride 103 (98-107) mmol/L Carbon Dioxide 32 H (22-30) mmol/L BUN 27 H (7-17) mg/dL Creatinine 1.01 (0.52-1.04) mg/dL Glucose 80 (74-99) mg/dL Calcium 9.2 (8.4-10.2) mg/dL - Imaging Chest x-ray: report reviewed Assessment and Plan Assessment: Social * Occupation - retired * Marital status - * Children/grandchildren - 2 adult sons * Residence - [facility] Functional Assessment * Able to walk independently - No * Assistive devices - wheelchair-bound * Able to use the bathroom independently - no * Continent - no * Require assistance bathing- yes * Able to feed self - yes * Who prepares meals - [employer] * Who manages medications - [employer] * Who manages finances - Son PPS score - 30% Psychological/Emotional * Dementia present - Yes, advanced * Insight and judgment - Not intact * Depression - JUANITA * Suicidal thoughts - JUANITA * Frequent hospitalizations - yes * Desire to keep coming back to the hospital for treatment - JUANITA Symptoms * Pain -CPOT 01/26, continue Tylenol * Fatigue - * SOB - respirations nonlabored, continue albuterol, Atrovent, and Lasix * N/V - * Anxiety - continue Risperdal * Depression - continue Remeron * Confusion - * Agitation - continue Ativan * Hallucinations - * Appetite/weight loss - * Dysphagia - * Constipation - No, LBM today * Incontinence - yes, has indwelling catheter * Itch - * Cough - Plan: Summary/Goals - Spoke with the patient's son, Fab, via telephone. It was explained to him that we need to discuss the goals of care for the patient moving forward. Education provided regarding the patient's chronic illnesses including her progressive advanced dementia, debility, and recurrent UTIs. His very worried about her mentation. He states yesterday she was at her baseline and they were able to have a good conversation. Fab was informed that today she is not responding verbally and moaning. Fab believes that her agitation and confusion is always related to her frequent UTIs. He was reminded that the last admission she did not have a UTI, but yet was still confused and very agitated. Concern was expressed about the patient's progressing advanced dementia causing her altered mental status, malnourishment, and functional decline. Fab was encouraged to think about his mother's quality of life. Fab met with hospice yesterday. He stated that he is not ready for hospice because she would not be able to come back and forth to the hospital for treatment of her recurrent UTIs. Advised ill to look at his mother's overall health. She has been admitted twice now with hypoxia. She now has a UTI and likely bacteremic. Fab was at work during the conversation and stated that he would like to continue with aggressive treatment at this time. Advanced Directives - none on file Code Status - DO NOT RESUSCITATE Thank you for this consultation Aicha Hawkins [facility] Palliative Care [facility] [id number] Email: [email or web address]
[2022-10-23] MEDS: PANTOPRAZOLE 40 MG/10 ML VIAL IVP SCH (12:49)
[2022-10-23] MEDS: FUROSEMIDE 10 MG/ML 4 ML VIAL IV SCH (12:49)
--- NOTE | 2022-10-23 17:50 | P.PN ---
Subjective Progress Note Date: 10/23/22 Hospital course: Patient is a very pleasant 81-year-old female with an extensive cardiovascular history consistent with cardiomyopathy, systolic heart failure, valvular heart disease, and chronic atrial fibrillation. She presented to the hospital from [facility] on 10/21/22 after being reportedly found to be hypoxic with increased confusion. Patient underwent full evaluation. EKG was completed showing atrial fibrillation at 82 bpm with no noted T-wave or ST abnormalities showing no signs of acute ischemia upon personal review and interpretation. Chest x-ray revealing similar cardiomegaly with pulmonary vascular congestion and bilateral pleural effusions. Labs completed and reviewed. CBC unremarkable. BMP revealing slightly elevated renal function with BUN of 34, creatinine 1.15, and GFR 45. Liver profile revealing hyperbilirubinemia with elevated total bili of 2.7 and elevated liver enzymes with ALT of 45 and alkaline phosphatase of 147. Troponin negative at less than 0.012 and pro-BMP 2910. Urinalysis positive for infection. Patient was admitted under our services with consultation to palliative care for discussion on the palliative care versus hospice care. Physical exam: Vital signs reviewed and stable. General: Nontoxic Derm: Skin warm and dry, normal coloration for ethnicity. Head: Atraumatic, normocephalic and symmetric. Eyes: EOMs intact, no lid lag, and anicteric sclera Mouth: no lip lesions, mucus membranes moist Cardiovascular: Irregularly irregular, systolic murmur, positive posterior tibial pulses bilaterally, and cap refill < 2 seconds. Lungs: Respirations even, regular, and unlabored on room air. Lungs diminished, no rhonchi, no rales, no wheezing, and no accessory muscle usage. Abdominal: soft, nontender to palpation, no guarding, no appreciable organomegaly Ext: ROM intact. No gross muscle atrophy, scant lower extremity edema, no contractures Neuro: Face symmetrical, no noted focal neuro deficits Psych: Patient with limited interaction moaning and only answering yes and no questions at this time. Assessment and Plan of Care: Acute hypoxic respiratory failure Acute on chronic systolic congestive heart failure with previously known EF of 40% Chronic atrial fibrillation Cardiovascular disease Hyperbilirubinemia, improved Elevated liver enzymes, improving Hypokalemia Hypomagnesemia -Palliative/hospice care is meeting with patient's family later today. -Pending further recommendations from palliative/hospice care patient to continue with daily medication regimen consisting of amiodarone, Eliquis, asp irin, atorvastatin, and metoprolol. -Patient to resume oral Lasix 40 mg daily tomorrow morning. -Discussed plan of care with palliative care CONSTRUCTION JOB TITLES after she discussed patient's conditionand family wishes with patient's son, Fab. At this time family wishes to continue with medical treatment at this time and declining hospice care as initially considering. -Order placed for potassium replacement with K Dur 40 mEq x2 doses for treatment of potassium of 3.2in order placed for magnesium 2 g IVPB for treatment of hypomagnesemia with magnesium of 1.7.. We will repeat morning BMP and magnesium while patient is on IV diuresis. -continue to monitor I's and O's. Patient has had 1100 mL of output over the past 24 hours. CODE STATUS: Full code DVT prophylaxis: Mia Discussed with: Palliative care CONSTRUCTION JOB TITLES, social work lecturer and RN Anticipated discharge date: clinical course to determine Anticipated discharge place: return to SNF Patient was seen independently by Nurse Pracitioner. This document was prepared using Retidoc dictation software. Please allow for errors in pediatric registered nurse, while rare they do occur. Felix Haskins, CONSTRUCTION JOB TITLES rendered care for this patient independently, reviewed the findings and plan as documented in the note above. I did not physically speak with or examine the patient on this date. Objective - Vital Signs Vital signs: Vital Signs Temp 97.9 F 10/23/22 07:08 Pulse 62 10/23/22 07:08 Resp 18 10/23/22 07:08 BP 107/71 10/23/22 07:08 Pulse Ox 94 L 10/23/22 07:08 FiO2 Intake & Output 10/22/22 10/23/22 10/23/22 18:59 06:59 18:59 Intake Total 0 Output Total 200 900 Balance -200 -900 Weight 66.5 kg Intake: Oral 0 Output: Urine 200 900 Other: Voiding Method Indwelling Catheter Indwelling Catheter # Bowel Movements 1 - Labs CBC & Chem 7: 10/25/22 05:46 10/25/22 05:38 Labs: Abnormal Lab Results - Last 24 Hours (Table) 10/22/22 10/23/22 Range/Units 07:31 07:42 Sodium 146 H (137-145) mmol/L Potassium 3.3 L 3.2 L (3.5-5.1) mmol/L Carbon Dioxide 32 H (22-30) mmol/L BUN 33 H 27 H (7-17) mg/dL Creatinine 1.28 H (0.52-1.04) mg/dL Total Bilirubin 1.8 H (0.2-1.3) mg/dL Alkaline Phosphatase 133 H (38-126) U/L Albumin 3.0 L (3.5-5.0) g/dL Microbiology - Last 24 Hours (Table) 10/21/22 16:58 Blood Culture Gram Stain - Preliminary Blood 10/21/22 16:58 Blood Culture - Final Blood 10/21/22 16:40 Blood Culture - Preliminary Blood No Growth after 24 hours
[2022-10-23] MEDS: POTASSIUM CHLORIDE ER 20 MEQ TAB.ER PO SCH ×2 (18:14→20:49)
[2022-10-23] MEDS: MAGNESIUM SULFATE-D5W PMX 1 GM in DEXTROSE/WATER 1 100ML.BAG IVPB SCH ×2 (18:14→20:50)
--- NOTE | 2022-10-23 18:49 | CDI ---
Documentation Clarification Form Date: 10/23/2022 06:43 PM From: Jennifer Teran RN CCDS Phone: [phone] Admit Date: 10/21/2022 4:10:00 PM Patient Name: Wanda Dukes Visit Number: [id number] Discharge Date: ATTENTION: The Clinical Documentation Specialists (CDI) and [facility] Coding Staff appreciate your assistance in clarifying documentation. Please respond to the clarification below the line at the bottom and electronically sign. The CDI & [facility] Coding staff will review the response and follow-up if needed. Please note: Queries are made part of the Legal Health Record. If you have any questions, please contact the author of this message via ITS. Dr. Mar Ramos UTI is documented in the H&P, 10/21, but is not noted in subsequent documentation. Clarification is requested. History/Risk Factors: 81-year old female presents to the ED via EMS from [facility] for being hypoxic and increased confusion. Medical History: Afib, Heart Failure, Severe dementia, Schizoaffective disorder and Thyroid disorder. 10/21, H&P. Clinical Indicators H&P, 10/21: Sepsis secondary to UTI 10/21, VSS: B/P 101/76; HR 81; Temp 94.4 F rectal; RR 16; SpO2 94% room air 10/21, LABS: Wbc 4.5; Urine: Appearance cloudy, Protein 1+, Blood Large, Leukocytosis Esterase Large RBC >182, Wbc 54, Bacteria Rare Hyaline cast 428 Treatment: 10/21 Rocephin ivp x 1; Ceftriaxone ivpb Q24HR Please clarify if the UTI is: [x] UTI confirmed, remains under treatment [ ] UTI confirmed, resolved [ ] UTI ruled out [ ] Other condition, please specify [ ] Unable to determine (Template Last Revised: September 2020) MTDD
--- NOTE | 2022-10-23 18:49 | CDI ---
Documentation Clarification Form Date: 10/23/2022 6:22:08 PM From: Jennifer Teran RN CCDS Phone: [phone] Admit Date: 10/21/2022 4:10:00 PM Patient Name: Wanda Dukes Visit Number: [id number] Discharge Date: ATTENTION: The Clinical Documentation Specialists (CDI) and [facility] Coding Staff appreciate your assistance in clarifying documentation. Please respond to the clarification below the line at the bottom and electronically sign. The CDI & [facility] Coding staff will review the response and follow-up if needed. Please note: Queries are made part of the Legal Health Record. If you have any questions, please contact the author of this message via ITS. Dr. Mar Ramos Sepsis is documented H&P, 10/21 but is not noted in subsequent documentation. Clarification is requested. History/Risk Factors: 81-year old female presents to the ED via EMS from [facility] for being hypoxic and increased confusion. Medical History: Afib, Heart Failure, Severe dementia, Schizoaffective disorder and Thyroid disorder. 10/21, H&P. Clinical Indicators H&P, 10/21: Sepsis secondary to UTI 10/21, VSS: B/P 101/76; HR 81; Temp 94.4 F rectal; RR 16; SpO2 94% room air 10/21, LABS: Wbc 4.5; Urine: Appearance cloudy, Protein 1+, Blood Large, Leukocytosis Esterase Large RBC >182, Wbc 54, Bacteria Rare Hyaline cast 428 Treatment: 10/21 0.9ns 500cc IV bolus; Rocephin ivp x 1; Ceftriaxone ivpb Q24HR Please clarify if the Sepsis is: [x] Sepsis confirmed, remains under treatment [ ] Sepsis ruled out [ ] Other condition, please specify [ ] Unable to determine (Template Last Revised: September 2020) MTDD
[2022-10-23] MEDS: AMIODARONE 200 MG TAB PO SCH (20:49)
[2022-10-23] MEDS: ATORVASTATIN 20 MG TAB PO SCH (20:49)
[2022-10-23] MEDS: MIRTAZAPINE 15 MG TAB PO SCH (20:50)
--- NOTE | 2022-10-23 23:03 | P.CONS ---
History of Present Illness - Reason for Consult Consult date: 10/23/22 Positive blood culture Requesting physician: Felix Haskins - Chief Complaint Mental status changes x one day - History of Present Illness Patient is a 81-year-old female with a past medical history significant for atrial fibrillation heart failure with dementia hyperlipidemia renal disease patient was brought into the ER for evaluation of hypoxemia on arrival of EMS the patient was noticed to be hypoxic with O2 sats in the 60s to 70s nonrebreather was placed and the patient was brought into the ER on presentation to the hospital patient was hypothermic with a temperature of 94.4 F initially mild hypoxia but subsequently doing well off oxygen therapy current ly 95% on room air patient did have a normal white count did have a elevated BUN/creatinine AST was mildly elevated patient did have a positive UA with large leukocyte esterase 54 WBC urine culture is pending blood cultures came back positive with gram-positive cocci prompting infectious disease consultation patient did have a chest x-ray cardiomegaly pulmonary vascular congestion and bilateral effusion most information has been obtained from review the chart as patient did not provide any history and did not ask any question Review of Systems Positive points has been mentioned in HPI complete review could not be obtained because of his underlying mental status Past Medical History Past Medical History: Atrial Fibrillation, Heart Failure, Dementia, Hyperlipidemia, Memory Impairment, Pneumonia, Renal Disease, Thyroid Disorder Additional Past Medical History / Comment(s): metabolic encephalopathy; uti; skin cancer History of Any Multi-Drug Resistant Organisms: None Reported Past Surgical History: Unable to Obtain Past Anesthesia/Blood Transfusion Reactions: Unable to Obtain Past Psychological History: Schizoaffective Disorder Smoking Status: Unknown if ever smoked Past Alcohol Use History: Unable to Obtain Past Drug Use History: Unable to Obtain Medications and Allergies Home Medications Medication Instructions Recorded Confirmed Type Apixaban [Eliquis] 5 mg PO BID 09/19/22 10/21/22 History Aspirin EC [Ecotrin Low Dose] 81 mg PO DAILY 09/19/22 10/21/22 History Atorvastatin Calcium 20 mg PO HS 09/19/22 10/21/22 History Cholecalciferol [Vitamin D3 (25 25 mcg PO DAILY 09/19/22 10/21/22 History Mcg = 1000 Iu)] Cranberry Fruit Extract [Cranberry] 500 mg PO BID 09/19/22 10/21/22 History Ipratropium-Albuterol Nebulize 3 ml INHALATION RT-Q6H PRN 09/19/22 10/21/22 History [Duoneb 0.5 mg-3 mg/3 ml Soln] Lactulose 20 gm PO DAILY 09/19/22 10/21/22 History Acetaminophen Tab [Tylenol] 325 mg PO Q6HR PRN tab 09/23/22 10/21/22 Rx Amiodarone [Cordarone] 200 mg PO HS 10/10/22 10/21/22 History Famotidine [Pepcid] 20 mg PO BID 10/10/22 10/21/22 History Mirtazapine [Remeron] 15 mg PO HS 10/10/22 10/21/22 History Pyridoxine HCl (Vitamin B6) 100 mg PO DAILY 10/10/22 10/21/22 History [Vitamin B-6] risperiDONE [RisperDAL] 0.25 mg PO BID 10/10/22 10/21/22 History Metoprolol Tartrate [Lopressor] 75 mg PO BID 10/21/22 10/21/22 History Furosemide [Lasix] 40 mg PO DAILY tab 10/29/22 Rx LORazepam [Ativan] 0.5 mg PO Q6H PRN #12 tab 10/29/22 Rx Methenamine Hippurate [Hiprex] 1 gm PO BID #60 tab 10/29/22 Rx Sennosides-Docusate Sodium 1 each PO BID tab 10/29/22 Rx [Senokot-S] bisacodyL [Dulcolax] 10 mg RECTAL DAILY PRN suppositor 10/29/22 Rx polyethylene glycoL 3350 [Miralax] 17 gm PO DAILY packet 10/29/22 Rx Allergies Allergy/AdvReac Type Severity Reaction Status Date / Time No Known Allergies Allergy Verified 10/21/22 13:21 Physical Exam Vitals: Vital Signs Temp Pulse Pulse Resp BP Pulse Ox 10/23/22 09:28 76 10/23/22 09:13 72 94 L 10/23/22 07:08 97.9 F 62 18 107/71 94 L 10/23/22 02:47 98.3 F 103 H 16 98/60 97 10/22/22 20:20 99 10/22/22 20:03 117 H 10/22/22 20:00 98.1 F 120 H 16 105/67 97 10/22/22 16:26 104 H 04/05/23 16:07 100 10/22/22 13:45 112 H 16 95/64 94 L 10/22/22 13:12 80 10/22/22 12:48 80 Intake and Output 10/22/22 10/23/22 10/23/22 22:59 06:59 14:59 Intake Total 0 Output Total 100 900 Balance -100 -900 Intake: Oral 0 Output: Urine 100 900 Other: Voiding Method Indwelling Catheter Indwelling Catheter Weight 66.5 kg GENERAL DESCRIPTION: Elderly female lying in bed, no distress. No tachypnea or accessory muscle of respiration use. HEENT: Shows Pallor , no scleral icterus. Oral mucous membrane is dry. NECK: Trachea central, no thyromegaly. LUNGS: Unlabored breathing. Clear to auscultation anteriorly. No wheeze or crackle. HEART: S1, S2, regular rate and rhythm. No loud murmur ABDOMEN: Soft, no tenderness , guarding or rigidity EXTREMITIES: No edema of feet. SKIN: No rash, no masses palpable. NEUROLOGICAL: The patient is lethargic orientation could not be determined Results CBC & Chem 7: 10/29/22 12:36 10/29/22 12:36 Labs: Abnormal Lab Results - Last 24 Hours (Table) 10/23/22 Range/Units 07:42 Potassium 3.2 L (3.5-5.1) mmol/L Carbon Dioxide 32 H (22-30) mmol/L BUN 27 H (7-17) mg/dL Microbiology - Last 24 Hours (Table) 10/21/22 16:58 Blood Culture Gram Stain - Preliminary Blood 10/21/22 16:58 Blood Culture - Final Blood 10/21/22 16:40 Blood Culture - Preliminary Blood No Growth after 24 hours Assessment and Plan (1) Positive blood culture Status: Acute Code(s): R78.81 - BACTEREMIA SNOMED Code(s): 250502454 (2) UTI (urinary tract infection) Status: Acute Code(s): N39.0 - URINARY TRACT INFECTION, SITE NOT SPECIFIED SNOMED Code(s): 68069103 Plan: 1patient with a positive blood culture with gram-positive cocci with a question of possible coagulase-negative staph in skin contaminant as the patient clinically do not have any disease to go along with it we will wait for the ID of this pathogen and hold on adding vancomycin. 2patient did have a positive UA and some mental status changes concern for possible UTI from what I gram-negative pathogen 3-May continue Rocephin while waiting for urine culture to be finalized 4-blood cultures will be repeated document clearance of bacteremia We will follow on clinical condition and cultures to further adjust medication if needed Thank you for this consultation we will follow the patient along with you Time with Patient: Greater than 30
[2022-10-24] MEDS: IPRATROPIUM 0.5 MG/2.5 ML NEBU INHALATION SCH ×4 (07:47→20:39)
[2022-10-24] MEDS: ALBUTEROL NEBULIZED 2.5 MG/3 ML INHALATION SCH ×4 (07:47→20:39)
[2022-10-24] MEDS: ASPIRIN 81 MG PO SCH (09:02)
[2022-10-24] MEDS: FAMOTIDINE 20 MG TAB PO SCH (09:02)
[2022-10-24] MEDS: CHOLECALCIFEROL 25 MCG (1000 IU) TABLET PO SCH (09:02)
[2022-10-24] MEDS: FUROSEMIDE 40 MG TAB PO SCH (09:02)
[2022-10-24] MEDS: LACTULOSE 20 GM/30 ML CUP PO SCH (09:02)
[2022-10-24] MEDS: PYRIDOXINE 50 MG TAB PO SCH (09:02)
[2022-10-24] MEDS: APIXABAN 5 MG TAB PO SCH ×2 (09:02→21:36)
[2022-10-24] MEDS: PANTOPRAZOLE 40 MG/10 ML VIAL IVP SCH (09:02)
[2022-10-24] MEDS: risperiDONE 0.25 MG TAB PO SCH ×2 (09:03→21:37)
[2022-10-24] MEDS: METOPROLOL TARTRATE 25 MG TAB PO SCH ×2 (09:03→21:36)
[2022-10-24 12:37] VITALS: BMI 23.6
[2022-10-24 16:36] LABS: Appearance,Urine Cloudy (Clear); Bacteria,Urine Occasional /hpf; Bilirubin,Urine Negative (Negative); Blood,Urine Large (Negative); Budding Yeast,Urine Moderate /hpf; Color,Urine Dark Brown; Glucose,Urine (UA) Negative (Negative); Hyaline Casts,Urine 161 /lpf (0-2); Ketones,Urine Negative (Negative); Leukocyte Esterase,Urine Large (Negative); Mucus,Urine Rare /hpf; Nitrite,Urine Negative (Negative); PH, Urine 5.5 (5.0-8.0); Protein,Urine 1+ (Negative); RBC,Urine >182 /hpf (0-5); Specific Gravity,Urine 1.018 (1.001-1.035); Squamous Epithelial Cell,Urine 5 /hpf (0-4); WBC,Urine 93 /hpf (0-5)
--- NOTE | 2022-10-24 16:53 | P.PN ---
Subjective Progress Note Date: 10/24/22 Hospital course: Patient is a very pleasant 81-year-old female with an extensive cardiovascular history consistent with cardiomyopathy, systolic heart failure, valvular heart disease, chronic atrial fibrillation, and dementia. She presented to the hospital from [facility] on 10/21/22 after being reportedly found to be hypoxic with increased confusion. Patient underwent full evaluation. EKG was completed showing atrial fibrillation at 82 bpm with no noted T-wave or ST abnormalities showing no signs of acute ischemia upon personal review and interpretation. Chest x-ray revealing similar cardiomegaly with pulmonary vascular congestion and bilateral pleural effusions. Labs completed and reviewed. CBC unremarkable. BMP revealing slightly elevated renal function with BUN of 34, creatinine 1.15, and GFR 45. Liver profile revealing hyperbilirubinemia with elevated total bili of 2.7 and elevated liver enzymes with ALT of 45 and alkaline phosphatase of 147. Troponin negative at less than 0.012 and pro-BMP 2910. Urinalysis positive for infection. Patient was admitted under our services with consultation to palliative care for discussion on the palliative care versus hospice care. Palliative care discussed plan with patient's son, patient's son is reportedly declining hospice services at this time and would like to continue with full treatment for his mother. Physical exam: Patient's mentation appears to be improving she is much more talkative this morning and alert. Patient repeatedly requesting a cheeseburger. Patient placed on a regular diet to enable ordering of a cheeseburger for lunch. Will continue to monitor closely. Vital signs reviewed and stable. General: Nontoxic Derm: Skin warm and dry, normal coloration for ethnicity. Head: Atraumatic, normocephalic and symmetric. Eyes: EOMs intact, no lid lag, and anicteric sclera Mouth: no lip lesions, mucus membranes moist Cardiovascular: Irregularly irregular, systolic murmur, positive posterior tibial pulses bilaterally, and cap refill < 2 seconds. Lungs: Respirations even, regular, and unlabored on room air. Lungs diminished, no rhonchi, no rales, no wheezing, and no accessory muscle usage. Abdominal: soft, nontender to palpation, no guarding, no appreciable organomegaly Ext: ROM intact. No gross muscle atrophy, scant lower extremity edema, no contractures Neuro: Face symmetrical, no noted focal neuro deficits Psych: Patient alert to person only this morning, but much more talkative and alert. Assessment and Plan of Care: Acute hypoxic respiratory failure Acute on chronic systolic congestive heart failure with previously known EF of 40% Chronic atrial fibrillation Cardiovascular disease Hyperbilirubinemia, improved Elevated liver enzymes, improving Hypokalemia Hypomagnesemia -Palliative care following -Patient to continue with daily medication regimen consisting of amiodarone, Eliquis, aspirin, atorvastatin, and metoprolol. -Patient received IV diuresis x 2 days and resumed oral Lasix 40 mg daily starting 10/24/22. -Potassium and magnesium have been replaced, We will repeat morning BMP and magnesium tomorrow morning and additional orders to be placed based upon these results. -Continue to monitor I's and O's. Patient has had 1100 mL of documented urinary output over the past 24 hours. Sepsis secondary to UTI Metabolic encephalopathy due to infectious process resulting from UTI History of dementia -Patient on day 3 of antibiotics, continue with Rocephin 2 g daily. -Urine culture was reportedly not received, order placed for urine culture at this time. We will follow-up on these results Positive blood culture -Received preliminary report that patient's blood culture with gram-positive cocci and questionable coagulase negative staph, likely contaminant as culture positive in 1 of 2 blood cultures. -Patient is on Rocephin at this time, infectious disease consulted and pending their recommendations will hold off on additional antibiotic coverage as positive blood culture believed to be contamination. CODE STATUS: Full code DVT prophylaxis: Eliquis Discussed with: Palliative care CHINESE HERBALIST, social media strategist and RN Anticipated discharge date: clinical course to determine Anticipated discharge place: return to SNF Patient was seen independently by Nurse Pracitioner. This document was prepared using [employer] dictation software. Please allow for errors in kit planner, while rare they do occur. I reviewed the documentation as provided by the BECKI above, who is the original author of this note. I agree with the documented assessment and plan, with the following changes: none Objective - Vital Signs Vital signs: Vital Signs Temp 97.6 F 10/24/22 07:01 Pulse 89 10/24/22 08:00 Resp 18 10/24/22 07:01 BP 97/67 10/24/22 07:01 Pulse Ox 94 L 10/24/22 07:01 FiO2 Intake & Output 10/23/22 10/24/22 10/24/22 18:59 06:59 18:59 Intake Total 200 Output Total 700 400 Balance -700 -200 Weight 66.3 kg Intake: Oral 200 Output: Urine 700 400 Other: Voiding Method Indwelling Catheter Indwelling Catheter - Labs CBC & Chem 7: 10/22/22 07:31 10/23/22 07:42 Labs: Microbiology - Last 24 Hours (Table) 10/21/22 16:40 Blood Culture - Preliminary Blood No Growth after 48 hours 10/21/22 16:58 Blood Culture Gram Stain - Preliminary Blood Blood Culture - Preliminary Coagulase Negative Staph 10/21/22 16:58 Blood Culture - Final Blood
--- NOTE | 2022-10-24 18:22 | P.PN ---
Subjective Progress Note Date: 10/24/22 Principal diagnosis: UTI and bacteremia Patient is a 81-year-old female with a past medical history significant for atrial fibrillation heart failure with dementia hyperlipidemia renal disease patient was brought into the ER for evaluation of hypoxemia and mental status changes, patient did have a positive UA concerning for UTI, positive blood culture was staph epi likely contamination On today's evaluation that is 10/24/2022, the patient is afebrile the patient is more awake and alert today and mentioned feeling better no chest pain shortness of breath or cough and no diarrhea has been reported Objective - Vital Signs Vital signs: Vital Signs Temp 98.1 F 10/24/22 12:00 Pulse 87 10/24/22 12:46 Resp 16 10/24/22 12:00 BP 91/64 10/24/22 12:00 Pulse Ox 99 10/24/22 12:00 FiO2 Intake & Output 10/23/22 10/24/22 10/24/22 18:59 06:59 18:59 Intake Total 200 Output Total 700 400 Balance -700 -200 Weight 66.3 kg 66.3 kg Intake: Oral 200 Output: Urine 700 400 Other: Voiding Method Indwelling Catheter Indwelling Catheter Indwelling Catheter - Exam GENERAL DESCRIPTION: An elderly female lying in bed in no distress RESPIRATORY SYSTEM: Unlabored breathing , decreased breath sounds at bases HEART: S1 S2 regular rate and rhythm , ABDOMEN: Soft , no tenderness EXTREMITIES: No edema feet - Labs CBC & Chem 7: 10/22/22 07:31 10/23/22 07:42 Labs: Microbiology - Last 24 Hours (Table) 10/21/22 16:40 Blood Culture - Preliminary Blood No Growth after 48 hours 10/21/22 16:58 Blood Culture Gram Stain - Preliminary Blood Blood Culture - Preliminary Coagulase Negative Staph Assessment and Plan (1) Positive blood culture Current Visit: Yes Status: Acute Code(s): R78.81 - BACTEREMIA SNOMED Code(s): 851199563 (2) UTI (urinary tract infection) Current Visit: Yes Status: Acute Code(s): N39.0 - URINARY TRACT INFECTION, SITE NOT SPECIFIED SNOMED Code(s): 95321183 Plan: 1patient with a positive blood culture with gram-positive cocci with a question of possible coagulase-negative staph in skin contaminant as the patient clinically do not have any disease to go along with it has been finalized and staph epi likely skin contamination no need for vancomycin. 2patient did have a positive UA and some mental status changes concern for possible UTI, urine culture has been requested patient to continue with the Rocephin while waiting for the cultures to finalize
[2022-10-24] MEDS: ATORVASTATIN 20 MG TAB PO SCH (21:36)
[2022-10-24] MEDS: AMIODARONE 200 MG TAB PO SCH (21:36)
[2022-10-24] MEDS: MIRTAZAPINE 15 MG TAB PO SCH (21:37)
[2022-10-25] MEDS: IPRATROPIUM 0.5 MG/2.5 ML NEBU INHALATION SCH ×4 (08:46→20:51)
[2022-10-25] MEDS: ALBUTEROL NEBULIZED 2.5 MG/3 ML INHALATION SCH ×4 (08:46→20:51)
[2022-10-25] MEDS: PANTOPRAZOLE 40 MG/10 ML VIAL IVP SCH (09:21)
[2022-10-25 10:10] LABS: HCT 39.6 % (37.2-46.3); MCH 26.8 pg (27.0-32.0); MCHC 30.3 g/dL (32.0-37.0); MCV 88.6 fL (80.0-97.0); Mean Platelet Volume 12.6 fL (9.5-12.2); NRBC Per 100 WBC 0 /100 WBCS (0.0-0.0); Platelet Count 165 X 10*3/uL (140-440); RBC 4.47 X 10*6/uL (4.10-5.20); RDW 18.6 % (11.5-14.5); WBC 4.96 X 10*3/uL (4.50-10.00)
[2022-10-25 11:17] LABS: African American GFR (CKD) 44.2 (60.0-200.0); Albumin/Globulin Ratio 0.91 (1.60-3.17); Anion Gap 9.9 mmol/L (10.00-18.00); BUN/Creat Ratio 15.54 Ratio (12.00-20.00); Blood Urea Nitrogen 20.2 mg/dL (9.0-27.0); Calcium 9.4 mg/dL (8.7-10.3); Carbon Dioxide 31.1 mmol/L (20.0-27.5); Globulin 3.3 g/dL (1.6-3.3); Non-African American GFR(CKD) 38.2 (60.0-200.0); Potassium 3.6 mmol/L (3.5-5.5); Total Protein 6.3 g/dL (6.2-8.2)
[2022-10-25] MEDS: APIXABAN 5 MG TAB PO SCH ×2 (13:29→20:41)
[2022-10-25] MEDS: METOPROLOL TARTRATE 25 MG TAB PO SCH ×2 (13:29→20:40)
[2022-10-25] MEDS: LACTULOSE 20 GM/30 ML CUP PO SCH (13:37)
[2022-10-25] MEDS: ASPIRIN 81 MG PO SCH (13:37)
[2022-10-25] MEDS: FUROSEMIDE 40 MG TAB PO SCH (13:37)
[2022-10-25] MEDS: CHOLECALCIFEROL 25 MCG (1000 IU) TABLET PO SCH (13:37)
[2022-10-25] MEDS: FAMOTIDINE 20 MG TAB PO SCH (13:37)
[2022-10-25] MEDS: risperiDONE 0.25 MG TAB PO SCH ×2 (13:38→20:41)
[2022-10-25] MEDS: PYRIDOXINE 50 MG TAB PO SCH (13:38)
--- NOTE | 2022-10-25 13:57 | P.PN ---
Subjective Progress Note Date: 10/25/22 Principal diagnosis: UTI and bacteremia Patient is a 81-year-old female with a past medical history significant for atrial fibrillation heart failure with dementia hyperlipidemia renal disease patient was brought into the ER for evaluation of hypoxemia and mental status changes, patient did have a positive UA concerning for UTI, positive blood culture was staph epi likely contamination On today's evaluation that is 10/25/2022, the patient remains to be afebrile the patient is breathing comfortably on room air, patient is to be lethargic and cannot provide any history no vomiting or diarrhea has been reported Objective - Vital Signs Vital signs: Vital Signs Temp 96.5 F L 10/25/22 12:51 Pulse 110 H 10/25/22 12:51 Resp 16 10/25/22 12:51 BP 104/70 10/25/22 12:51 Pulse Ox 99 10/25/22 12:51 FiO2 Intake & Output 10/24/22 10/25/22 10/25/22 18:59 06:59 18:59 Intake Total 290 Output Total 200 200 Balance -200 90 Weight 66.3 kg 66 kg Intake: IV 240 0.9@20 240 Intake, IV Titration 50 Amount cefTRIAXone 2 gm In 50 Sodium Chloride 0.9% 50 ml @ 100 mls/hr IVPB Q24HR [facility] Rx#:[id number] Output: Urine 200 200 Other: Voiding Method Indwelling Catheter Indwelling Catheter Indwelling Catheter - Exam GENERAL DESCRIPTION: An elderly female lying in bed in no distress RESPIRATORY SYSTEM: Unlabored breathing , decreased breath sounds at bases HEART: S1 S2 regular rate and rhythm , ABDOMEN: Soft , no tenderness EXTREMITIES: No edema feet - Labs CBC & Chem 7: 10/25/22 05:46 10/25/22 05:38 Labs: Abnormal Lab Results - Last 24 Hours (Table) 10/24/22 10/25/22 10/25/22 Range/Units 15:36 05:38 05:46 MCH 26.8 L (27.0-32.0) pg MCHC 30.3 L (32.0-37.0) g/dL RDW 18.6 H (11.5-14.5) % MPV 12.6 H (9.5-12.2) fL Carbon Dioxide 31.1 H (20.0-27.5) mmol/L Anion Gap 9.90 L (10.00-18.00) mmol/L Est GFR (CKD-EPI)AfAm 44.2 L (60.0-200.0) Est GFR (CKD-EPI)NonAf 38.2 L (60.0-200.0) AST 36 H (13-35) U/L Alkaline Phosphatase 145 H (41-126) U/L Albumin 3.0 L (3.8-4.9) g/dL Albumin/Globulin Ratio 0.91 L (1.60-3.17) g/dL Urine Appearance Cloudy H (Clear) Urine Protein 1+ H (Negative) Urine Blood Large H (Negative) Ur Leukocyte Esterase Large H (Negative) Urine RBC >182 H (0-5) /hpf Urine WBC 93 H (0-5) /hpf Ur Squamous Epith Cells 5 H (0-4) /hpf Urine Bacteria Occasional H (None) /hpf Hyaline Casts 161 H (0-2) /lpf Urine Mucus Rare H (None) /hpf Urine Yeast (Budding) Moderate H (None) /hpf Microbiology - Last 24 Hours (Table) 10/21/22 16:40 Blood Culture - Preliminary Blood No Growth after 72 hours Assessment and Plan (1) Positive blood culture Current Visit: Yes Status: Acute Code(s): R78.81 - BACTEREMIA SNOMED Code(s): 842826899 (2) UTI (urinary tract infection) Current Visit: Yes Status: Acute Code(s): N39.0 - URINARY TRACT INFECTION, SITE NOT SPECIFIED SNOMED Code(s): 53430003 Plan: 1patient with a positive blood culture with gram-positive cocci with a question of possible coagulase-negative staph in skin contaminant as the patient clinically do not have any disease to go along with it has been finalized and staph epi likely skin contamination no need for vancomycin. 2patient did have a positive UA and some mental status changes concern for poss ible UTI, urine culture has been requested yesterday which are currently pending patient to continue with Rocephin while waiting for the culture finalized Time with Patient: Less than 30
--- NOTE | 2022-10-25 15:04 | P.PN ---
Subjective Progress Note Date: 10/25/22 Hospital course: Patient is a very pleasant 81-year-old female with an extensive cardiovascular history consistent with cardiomyopathy, systolic heart failure, valvular heart disease, chronic atrial fibrillation, and dementia. She presented to the hospital from [facility] on 10/21/22 after being reportedly found to be hypoxic with increased confusion. Patient underwent full evaluation. EKG was completed showing atrial fibrillation at 82 bpm with no noted T-wave or ST abnormalities showing no signs of acute ischemia upon personal review and interpretation. Chest x-ray revealing similar cardiomegaly with pulmonary vascular congestion and bilateral pleural effusions. Labs completed and reviewed. CBC unremarkable. BMP revealing slightly elevated renal function with BUN of 34, creatinine 1.15, and GFR 45. Liver profile revealing hyperbilirubinemia with elevated total bili of 2.7 and elevated liver enzymes with ALT of 45 and alkaline phosphatase of 147. Troponin negative at less than 0.012 and pro-BMP 2910. Urinalysis positive for infection. Patient was admitted under our services with consultation to palliative care for discussion on the palliative care versus hospice care. Palliative care discussed plan with patient's son, patient's son is reportedly declining hospice services at this time and would like to continue with full treatment for his mother. Physical exam: Patient appears sleepy this morning and only answering limited questions, pulling away when touched, squeezing eyes shut, and moving head and opposite direction when spoken to. Vital signs stable with blood pressure 111/78, heart rate 107, respiratory rate 16, SpO2 98% on room air. Vital signs reviewed and stable. General: Nontoxic Derm: Skin warm and dry, normal coloration for ethnicity. Head: Atraumatic, normocephalic and symmetric. Eyes: EOMs intact, no lid lag, and anicteric sclera Mouth: no lip lesions, mucus membranes moist Cardiovascular: Irregularly irregular, systolic murmur, positive posterior tibial pulses bilaterally, and cap refill < 2 seconds. Lungs: Respirations even, regular, and unlabored on room air. Lungs diminished, no rhonchi, no rales, no wheezing, and no accessory muscle usage. Abdominal: soft, nontender to palpation, no guarding, no appreciable organomegaly Ext: ROM intact. No gross muscle atrophy, scant lower extremity edema, no contractures Neuro: Face symmetrical, no noted focal neuro deficits Psych: Patient alert to person only this morning, but much more talkative and alert. Assessment and Plan of Care: Acute hypoxic respiratory failure Acute on chronic systolic congestive heart failure with previously known EF of 40% Chronic atrial fibrillation Cardiovascular disease Hyperbilirubinemia, improved Elevated liver enzymes, improving Hypokalemia Hypomagnesemia -Palliative care following -Patient to continue with daily medication regimen consisting of amiodarone, Eliquis, aspirin, atorvastatin, and metoprolol. -Patient received IV diuresis x 2 days and resumed oral Lasix 40 mg daily starting 10/24/22. -Potassium and magnesium have been replaced, We will repeat morning BMP and magnesium tomorrow morning and additional orders to be placed based upon these results. -Continue to monitor I's and O's. Sepsis secondary to UTI Metabolic encephalopathy due to infectious process resulting from UTI History of dementia -Patient on day 4 of antibiotics, continue with Rocephin 2 g daily. -Urine culture was obtained on 10/24/22 and currently awaiting results. Positive blood culture -Blood culture 1 out of 2 cultures is positive for Coagulase negative staph, likely contaminant however patient being treated for UTI and currently awaiting urine culture results. . -Patient is on Rocephin at this time, infectious disease following and pending their recommendations will hold off on additional antibiotic coverage as positive blood culture believed to be contamination. CODE STATUS: Full code DVT prophylaxis: Mia Discussed with: RN Anticipated discharge date: clinical course to determine Anticipated discharge place: return to SNF Patient was seen independently by Nurse Pracitioner. This document was prepared using [employer] dictation software. Please allow for errors in fitting room maintenance mechanic, while rare they do occur. Felix Haskins NP rendered care for this patient independently, reviewed the findings and plan as documented in the note above. I did not physically speak with or examine the patient on this date. Objective - Vital Signs Vital signs: Vital Signs Temp 96.8 F L 10/25/22 07:28 Pulse 107 H 10/25/22 07:28 Resp 14 10/25/22 07:28 BP 111/78 10/25/22 07:28 Pulse Ox 98 10/25/22 07:28 FiO2 Intake & Output 10/24/22 10/25/22 10/25/22 18:59 06:59 18:59 Intake Total 290 Output Total 200 200 Balance -200 90 Weight 66.3 kg 66 kg Intake: IV 240 0.9@20 240 Intake, IV Titration 50 Amount cefTRIAXone 2 gm In 50 Sodium Chloride 0.9% 50 ml @ 100 mls/hr IVPB Q24HR [facility] Rx#:[id number] Output: Urine 200 200 Other: Voiding Method Indwelling Catheter Indwelling Catheter - Labs CBC & Chem 7: 10/25/22 05:46 10/25/22 05:38 Labs: Abnormal Lab Results - Last 24 Hours (Table) 10/24/22 Range/Units 15:36 Urine Appearance Cloudy H (Clear) Urine Protein 1+ H (Negative) Urine Blood Large H (Negative) Ur Leukocyte Esterase Large H (Negative) Urine RBC >182 H (0-5) /hpf Urine WBC 93 H (0-5) /hpf Ur Squamous Epith Cells 5 H (0-4) /hpf Urine Bacteria Occasional H (None) /hpf Hyaline Casts 161 H (0-2) /lpf Urine Mucus Rare H (None) /hpf Urine Yeast (Budding) Moderate H (None) /hpf Microbiology - Last 24 Hours (Table) 10/21/22 16:40 Blood Culture - Preliminary Blood No Growth after 72 hours
[2022-10-25] MEDS: ATORVASTATIN 20 MG TAB PO SCH (20:41)
[2022-10-25] MEDS: AMIODARONE 200 MG TAB PO SCH (20:41)
[2022-10-25] MEDS: MIRTAZAPINE 15 MG TAB PO SCH (20:41)
[2022-10-26] MEDS: ALBUTEROL NEBULIZED 2.5 MG/3 ML INHALATION SCH ×4 (08:51→20:12)
[2022-10-26] MEDS: IPRATROPIUM 0.5 MG/2.5 ML NEBU INHALATION SCH ×4 (08:52→20:12)
[2022-10-26] MEDS ORDERED: ONDANSETRON 4 MG/2 ML VIAL IVP PRN (09:24)
[2022-10-26] MEDS: FAMOTIDINE 20 MG TAB PO SCH (10:25)
[2022-10-26] MEDS: CHOLECALCIFEROL 25 MCG (1000 IU) TABLET PO SCH (10:25)
[2022-10-26] MEDS: PYRIDOXINE 50 MG TAB PO SCH (10:25)
[2022-10-26] MEDS: METOPROLOL TARTRATE 25 MG TAB PO SCH ×2 (10:27→20:40)
[2022-10-26] MEDS: PANTOPRAZOLE 40 MG/10 ML VIAL IVP SCH (10:29)
[2022-10-26] MEDS: LACTULOSE 20 GM/30 ML CUP PO SCH (10:37)
[2022-10-26] MEDS: FUROSEMIDE 40 MG TAB PO SCH (10:37)
[2022-10-26] MEDS: ASPIRIN 81 MG PO SCH (10:37)
[2022-10-26] MEDS: APIXABAN 5 MG TAB PO SCH ×2 (10:37→20:39)
[2022-10-26] MEDS: risperiDONE 0.25 MG TAB PO SCH ×2 (10:38→20:40)
--- NOTE | 2022-10-26 15:09 | P.PN ---
Subjective Progress Note Date: 10/26/22 Hospital course: Patient is a very pleasant 81-year-old female with an extensive cardiovascular history consistent with cardiomyopathy, systolic heart failure, valvular heart disease, chronic atrial fibrillation, and dementia. She presented to the hospital from [facility] on 10/21/22 after being reportedly found to be hypoxic with increased confusion. Patient underwent full evaluation. EKG was completed showing atrial fibrillation at 82 bpm with no noted T-wave or ST abnormalities showing no signs of acute ischemia upon personal review and interpretation. Chest x-ray revealing similar cardiomegaly with pulmonary vascular congestion and bilateral pleural effusions. Labs completed and reviewed. CBC unremarkable. BMP revealing slightly elevated renal function with BUN of 34, creatinine 1.15, and GFR 45. Liver profile revealing hyperbilirubinemia with elevated total bili of 2.7 and elevated liver enzymes with ALT of 45 and alkaline phosphatase of 147. Troponin negative at less than 0.012 and pro-BMP 2910. Urinalysis positive for infection. Patient was admitted under our services with consultation to palliative care for discussion on the palliative care versus hospice care. Palliative care discussed plan with patient's son, patient's son is reportedly declining hospice services at this time and would like to continue with full treatment for his mother. Physical exam: Patient again very sleepy this morning and only answering yes and no questions and following limited commands. This appears to be patient's baseline mentation. She again pulls away from painful stimulation and turns head and opposite direction away from staff when being asked questions or spoken to. Patient squeezed eyes shut when attempting to evaluate pupils. Hemodynamically patient stable. She remains afebrile. Vital signs stable with blood pressure 113/77, heart rate 99, respiratory rate 16, and SpO2 99% on room air with temp of 98.3F. Vital signs reviewed and stable. General: Nontoxic Derm: Skin warm and dry, normal coloration for ethnicity. Head: Atraumatic, normocephalic and symmetric. Eyes: EOMs intact, no lid lag, and anicteric sclera Mouth: no lip lesions, mucus membranes moist Cardiovascular: Irregularly irregular, systolic murmur, positive posterior tibial pulses bilaterally, and cap refill < 2 seconds. Lungs: Respirations even, regular, and unlabored on room air. Lungs diminished, no rhonchi, no rales, no wheezing, and no accessory muscle usage. Abdominal: soft, nontender to palpation, no guarding, no appreciable organomegaly Ext:: Movement and sensation intact No gross muscle atrophy, scant lower extremity edema, no contractures Neuro: Face symmetrical, no noted focal neuro deficits Psych: Patient alert to person only, confused to time, place, and situation. Follows limited commands. Assessment and Plan of Care: Sepsis secondary to UTI Metabolic encephalopathy due to infectious process resulting from UTI History of dementia -Patient on day 5 of antibiotics, continue with Rocephin 2 g daily. -Urine culture preliminary result showing no gross, awaiting final culture results. Positive blood culture -Blood culture 1 out of 2 cultures is positive for Coagulase negative staph, believed to be skin contaminant however patient being treated for UTI and currently awaiting urine culture results. . -Patient to remain on on Rocephin 2 g IVPB every 24 hours at this time pending final urine culture results -Infectious disease following and reviewed documentation on chart, in agreement to hold off on any additional treatment with antibiotics recommending continued Rocephin pending urine culture results. Acute on chronic systolic congestive heart failure with previously known EF of 40% Acute hypoxic respiratory failure secondary to above, resolved after diuresis. Chronic atrial fibrillation Cardiovascular disease Hyperbilirubinemia, resolved Elevated liver enzymes, resolved Hypokalemia, resolved Hypomagnesemia, resolved -Palliative care following -Patient to continue with daily medication regimen consisting of amiodarone, Eliquis, Lasix, aspirin, atorvastatin, and metoprolol. CODE STATUS: Full code DVT prophylaxis: Eliquis Discussed with: RN Anticipated discharge date: Pending urine culture results likely within the next 24-[address]: return to SNF Patient was seen independently by Nurse Pracitioner. This document was prepared using [employer] dictation software. Please allow for errors in search lead, while rare they do occur. Felix Haskins NP rendered care for this patient independently, reviewed the findings and plan as documented in the note above. I did not physically speak with or examine the patient on this date. Objective - Vital Signs Vital signs: Vital Signs Temp 98.3 F 10/26/22 07:17 Pulse 99 10/26/22 07:17 Resp 16 10/26/22 07:17 BP 113/77 10/26/22 07:17 Pulse Ox 99 10/26/22 08:52 FiO2 Intake & Output 10/25/22 10/26/22 10/26/22 18:59 06:59 18:59 Output Total 100 100 Balance -100 -100 Weight 70.2 kg Output: Urine 100 100 Other: Voiding Method Indwelling Catheter Indwelling Catheter Indwelling Catheter - Labs CBC & Chem 7: 10/27/22 12:10 10/27/22 12:10 Labs: Abnormal Lab Results - Last 24 Hours (Table) 10/25/22 10/25/22 Range/Units 05:38 05:46 MCH 26.8 L (27.0-32.0) pg MCHC 30.3 L (32.0-37.0) g/dL RDW 18.6 H (11.5-14.5) % MPV 12.6 H (9.5-12.2) fL Carbon Dioxide 31.1 H (20.0-27.5) mmol/L Anion Gap 9.90 L (10.00-18.00) mmol/L Est GFR (CKD-EPI)AfAm 44.2 L (60.0-200.0) Est GFR (CKD-EPI)NonAf 38.2 L (60.0-200.0) AST 36 H (13-35) U/L Alkaline Phosphatase 145 H (41-126) U/L Albumin 3.0 L (3.8-4.9) g/dL Albumin/Globulin Ratio 0.91 L (1.60-3.17) g/dL Microbiology - Last 24 Hours (Table) 10/21/22 16:40 Blood Culture - Preliminary Blood No Growth after 96 hours 10/24/22 15:36 Urine Culture - Preliminary Urine,Voided 10/21/22 16:58 Blood Culture Gram Stain - Final Blood Blood Culture - Final Coagulase Negative Staph
--- NOTE | 2022-10-26 16:30 | P.PN ---
Subjective Progress Note Date: 10/26/22 Principal diagnosis: UTI and bacteremia Patient is a 81-year-old female with a past medical history significant for atrial fibrillation heart failure with dementia hyperlipidemia renal disease patient was brought into the ER for evaluation of hypoxemia and mental status changes, patient did have a positive UA concerning for UTI, positive blood culture was staph epi likely contamination On today's evaluation that is 10/26/2022, the patient continues to be afebrile the patient is breathing comfortably on room air, patient is more awake and alert today however did not have any good historian denied any active symptoms to me no vomiting or diarrhea has been reported Objective - Vital Signs Vital signs: Vital Signs Temp 97.8 F 10/26/22 12:51 Pulse 91 10/26/22 12:51 Resp 18 10/26/22 12:51 BP 111/72 10/26/22 12:51 Pulse Ox 96 10/26/22 12:51 FiO2 Intake & Output 10/25/22 10/26/22 10/26/22 18:59 06:59 18:59 Output Total 100 100 3 Balance -100 -100 -3 Weight 70.2 kg Output: Urine 100 100 Emesis 3 Other: Voiding Method Indwelling Catheter Indwelling Catheter Indwelling Catheter - Exam GENERAL DESCRIPTION: An elderly female lying in bed in no distress RESPIRATORY SYSTEM: Unlabored breathing , decreased breath sounds at bases HEART: S1 S2 regular rate and rhythm , ABDOMEN: Soft , no tenderness EXTREMITIES: No edema feet - Labs CBC & Chem 7: 10/25/22 05:46 10/25/22 05:38 Labs: Microbiology - Last 24 Hours (Table) 10/21/22 16:40 Blood Culture - Preliminary Blood No Growth after 96 hours 10/24/22 15:36 Urine Culture - Preliminary Urine,Voided 10/21/22 16:58 Blood Culture Gram Stain - Final Blood Blood Culture - Final Coagulase Negative Staph Assessment and Plan (1) Positive blood culture Current Visit: Yes Status: Acute Code(s): R78.81 - BACTEREMIA SNOMED C ode(s): 229901557 (2) UTI (urinary tract infection) Current Visit: Yes Status: Acute Code(s): N39.0 - URINARY TRACT INFECTION, SITE NOT SPECIFIED SNOMED Code(s): 31693265 Plan: 1patient with a positive blood culture with gram-positive cocci with a question of possible coagulase-negative staph in skin contaminant as the patient clin ically do not have any disease to go along with it has been finalized and staph epi likely skin contamination no need for vancomycin. 2patient did have a positive UA and some mental status changes concern for possible UTI, urine culture are currently pending we will continue the patient on Rocephin while waiting for the cultures to finalize Time with Patient: Less than 30
[2022-10-26] MEDS: ATORVASTATIN 20 MG TAB PO SCH (20:39)
[2022-10-26] MEDS: AMIODARONE 200 MG TAB PO SCH (20:40)
[2022-10-26] MEDS: MIRTAZAPINE 15 MG TAB PO SCH (20:40)
[2022-10-27] MEDS: IPRATROPIUM 0.5 MG/2.5 ML NEBU INHALATION SCH ×3 (08:26→15:39)
[2022-10-27] MEDS: ALBUTEROL NEBULIZED 2.5 MG/3 ML INHALATION SCH ×3 (08:26→15:39)
[2022-10-27] MEDS: METOPROLOL TARTRATE 25 MG TAB PO SCH ×2 (09:54→20:58)
[2022-10-27] MEDS: CHOLECALCIFEROL 25 MCG (1000 IU) TABLET PO SCH (10:23)
[2022-10-27] MEDS: ASPIRIN 81 MG PO SCH (10:23)
[2022-10-27] MEDS: APIXABAN 5 MG TAB PO SCH ×2 (10:23→21:00)
[2022-10-27] MEDS: PYRIDOXINE 50 MG TAB PO SCH (10:24)
[2022-10-27] MEDS: FUROSEMIDE 40 MG TAB PO SCH (10:24)
[2022-10-27] MEDS: LACTULOSE 20 GM/30 ML CUP PO SCH (10:24)
[2022-10-27] MEDS: FAMOTIDINE 20 MG TAB PO SCH (10:24)
[2022-10-27] MEDS: risperiDONE 0.25 MG TAB PO SCH ×2 (10:24→21:01)
[2022-10-27] MEDS: PANTOPRAZOLE 40 MG/10 ML VIAL IVP SCH (10:29)
[2022-10-27] MEDS ORDERED: SODIUM CHLORIDE 0.9% 1,000 ML IV ONE (11:28)
[2022-10-27 12:19] LABS: Anisocytosis Slight; Basophils % (A) 0 %; Eosinophils # (A) 0.2 k/uL (0-0.7); Eosinophils % (A) 1 %; HGB 13.3 gm/dL (11.4-16.0); Hypochromasia Moderate; Lymphocytes # (A) 0.2 k/uL (1.0-4.8); Lymphocytes % (A) 1 %; MCH 27.1 pg (25.0-35.0); MCHC 30.9 g/dL (31.0-37.0); MCV 87.8 fL (80.0-100.0); Mean Platelet Volume 9.3; Monocytes # (A) 0.6 k/uL (0-1.0); Monocytes % (A) 4 %; Neutrophils # (A) 15.2 k/uL (1.3-7.7); Neutrophils % (A) 93 %; Platelet Count 143 k/uL (150-450); RDW 17.3 % (11.5-15.5); WBC 16.4 k/uL (3.8-10.6)
--- NOTE | 2022-10-27 12:37 | P.GSCN ---
History of Present Illness Consult date: 10/27/22 Reason for Consult: Concerns for bilateral extremity ischemia Requesting physician: Felix Haskins History of present illness: This is an 81-year-old female emergency department on 10/21/2022 with acute hypoxia and altered mental status changes. This is a patient who was recently admitted and discharged on 10/13/2022 for hypoxemia. This a patient with multiple comorbidities including congestive heart failure, advanced dementia, cardiomyopathy, atrial fibrillation on Eliquis, chronic UTIs with indwelling Pattersno catheter, chronic renal disease, thyroid disorder and hyperlipidemia. HPI obtained from patient's chart. Patient is not answering any questions or following any commands. Vascular surgery was consulted for changes in lower extremity color and cold to touch. Apparently palliative care has been consult ed this admission and discussed possible hospice care however son at that time had declined. Patient is a no code currently. WBC 16 hemoglobin 13 platelet count 143,000, BMP currently pending. Patient had positive blood cultures however it is felt that they were contaminated. Patient has been afebrile. Temperature 98.1 respiratory rate 18 heart rate 110 blood pressure 123/75 oxygen saturation 97% with 2 L nasal cannula Review of Systems ROS unobtainable: due to mental status Past Medical History Past Medical History: Atrial Fibrillation, Heart Failure, Dementia, Hyperlipidemia, Memory Impairment, Pneumonia, Renal Disease, Thyroid Disorder Additional Past Medical History / Comment(s): metabolic encephalopathy; uti; skin cancer History of Any Multi-Drug Resistant Organisms: None Reported Past Surgical History: Unable to Obtain Past Anesthesia/Blood Transfusion Reactions: Unable to Obtain Past Psychological History: Schizoaffective Disorder Smoking Status: Unknown if ever smoked Past Alcohol Use History: Unable to Obtain Past Drug Use History: Unable to Obtain Medications and Allergies Home Medications Medication Instructions Recorded Confirmed Type Apixaban [Eliquis] 5 mg PO BID 09/19/22 10/21/22 History Aspirin EC [Ecotrin Low Dose] 81 mg PO DAILY 09/19/22 10/21/22 History Atorvastatin Calcium 20 mg PO HS 09/19/22 10/21/22 History Cholecalciferol [Vitamin D3 (25 25 mcg PO DAILY 09/19/22 10/21/22 History Mcg = 1000 Iu)] Cranberry Fruit Extract [Cranberry] 500 mg PO BID 09/19/22 10/21/22 History Ipratropium-Albuterol Nebulize 3 ml INHALATION RT-Q6H PRN 09/19/22 10/21/22 History [Duoneb 0.5 mg-3 mg/3 ml Soln] Lactulose 20 gm PO DAILY 09/19/22 10/21/22 History Sacubitril/Valsartan [Entresto 24 2 tab PO BID 09/19/22 10/21/22 History mg-26 mg Tablet] Acetaminophen Tab [Tylenol] 325 mg PO Q6HR PRN tab 09/23/22 10/21/22 Rx Torsemide [Demadex] 20 mg PO DAILY tab 09/23/22 10/21/22 Rx Amiodarone [Cordarone] 200 mg PO HS 10/10/22 10/21/22 History Famotidine [Pepcid] 20 mg PO BID 10/10/22 10/21/22 History LORazepam [Ativan] 0.5 mg PO Q6H PRN 10/10/22 10/21/22 History Mirtazapine [Remeron] 15 mg PO HS 10/10/22 10/21/22 History Pyridoxine HCl (Vitamin B6) 100 mg PO DAILY 10/10/22 10/21/22 History [Vitamin B-6] risperiDONE [RisperDAL] 0.25 mg PO BID 10/10/22 10/21/22 History Metoprolol Tartrate [Lopressor] 75 mg PO BID 10/21/22 10/21/22 History Allergies Allergy/AdvReac Type Severity Reaction Status Date / Time No Known Allergies Allergy Verified 10/21/22 13:21 Surgical - Exam Vital Signs Pulse Resp BP Pulse Ox 81 16 101/76 94 L 10/21/22 12:31 10/21/22 12:31 10/21/22 12:31 10/21/22 12:31 General appearance: The patient is asleep, but arousable. Open her eyes to her name. HET: Head is normocephalic and atraumatic. Neck: Supple. Heart: Irregular rate. Lungs: Equal expansion, normal respiratory effort. Abdomen: Soft, nontender, nondistended. Extremities: Palpable bilateral femoral pulses, bilateral popliteal and PT signals obtained, right DP Doppler signal present. Left DP without Doppler signal. Bilateral feet cold to the touch, with purple discoloration of midfoot and toes. Good capillary refill. Unsure if sensorimotor is intact as patient is lying with her eyes closed. Calf and feet were squeezed without any response from patient. Neurological: Patient lying with eyes closed, did open eyes and respond to name. Would not answer any questions or follow any commands. Results - Labs 10/27/22 12:10 10/27/22 12:10 Abnormal Lab Results - Last 24 Hours (Table) 10/27/22 Range/Units 12:10 WBC 16.4 H (3.8-10.6) k/uL MCHC 30.9 L (31.0-37.0) g/dL RDW 17.3 H (11.5-15.5) % Plt Count 143 L (150-450) k/uL Neutrophils # 15.2 H (1.3-7.7) k/uL Lymphocytes # 0.2 L (1.0-4.8) k/uL Microbiology - Last 24 Hours (Table) 10/24/22 15:36 Urine Culture - Preliminary Urine,Voided Gram Neg Bacilli 10/21/22 16:40 Blood Culture - Preliminary Blood No Growth after 120 hours Assessment and Plan Assessment: 1. Bilateral cold feet with discoloration 2. Acute hypoxemia 3. Congestive heart failure 4. Atrial fibrillation on eliquis 5. Cardiomyopathy 6. Chronic kidney disease Plan: 1. CT angiogram aorta abdomen and pelvis with runoff ordered per medical team 2. Further recommendations forthcoming from vascular surgeon based on CTA with runoff 3. Patient is a poor surgical candidate Thank you for this consultation, we will continue to follow. The impression and plan of care has been dictated as directed. I performed a history and examination of this patient, discussed the same with the dictator. I agree with the dictator's note ,documented as a scribe. Any additional findings or plans will be noted.
[2022-10-27 12:40] LABS: ALT 28 U/L (4-34); AST 40 U/L (14-36); African American GFR (CKD) 55 (>60 ml/min/1.73 sqM); Albumin/Globulin Ratio 0.8; Alkaline Phosphatase 148 U/L (38-126); Anion Gap 5 mmol/L; Blood Urea Nitrogen 26 mg/dL (7-17); Calcium 9.4 mg/dL (8.4-10.2); Carbon Dioxide 31 mmol/L (22-30); Chloride 105 mmol/L (98-107); Globulin 3.7 g/dL; Glucose 104 mg/dL (74-99); Magnesium 1.9 mg/dL (1.6-2.3); Non-African American GFR(CKD) 48 (>60 ml/min/1.73 sqM); Potassium 4.2 mmol/L (3.5-5.1); Sodium 141 mmol/L (137-145); Total Bilirubin 1.5 mg/dL (0.2-1.3); Total Protein 6.7 g/dL (6.3-8.2)
--- NOTE | 2022-10-27 15:33 | CT ---
EXAMINATION TYPE: CT angio abd aorta w/Runoff DATE OF EXAM: 10/27/2022 COMPARISON: 09/22/2022 INDICATION: ischemic appearing toes DLP: 1796 mGycm, Automated exposure control for dose reduction was used. CONTRAST: 80 mL of Isovue 370. Study performed without Oral Contrast TECHNIQUE: Axial images were obtained from above the diaphragm to the pubic rami in the axial plane a t 5 mm thick sections. Reconstructed images are reviewed on the computer in the coronal plane. FINDINGS: Limited CT sections are obtained the lung bases. Small bilateral pleural effusions are present. Bridgette cent compressive atelectasis is present.. CT ABDOMEN: Runoff: Descending thoracic aorta with limited field of view is unremarkable. Celiac axis and superior mesenteric artery takeoffs are normal. Renal artery takeoffs are normal. No aneurysmal dilatation or dissection is evident. Aortic bifurcation appears normal. Common iliac arteries interna l and external iliac arteries are patent. Common femoral arteries are patent. Profunda femoris and superficial femoral arteries appear normal. Popliteal arteries are patent. There may be a high takeoff of the left posterior tibial artery. Right lower extremity trifurcation v essels appear attenuated but are patent to the mid calf region. The distal calf right lower extremity arterial vascular contrast is not evident. The left anterior tibial artery extends to the nearly lev el of the ankle. Left Peroneal artery may be into the distal calf. Posterior tibial artery is not mita ntified on the left. Liver: Normal Spleen: Normal Pancreas: Atrophic Adrenal glands: The adrenal glands are normal. Gallbladder: Normal Kidneys: No masses are evident. No hydronephrosis is present. No cysts are present. Delayed images were obtained through the kidneys, which remain unremarkable. Aorta: Vascular calcification is within the aorta. Inferior vena cava: Normal. CT PELVIS: Loops of bowel within the abdomen and pelvis are normal. Scattered diverticuli within the colon. N ot identified Appendix: Not identified. No dilated tubular structure or inflammatory changes are evident. Urinary bladder: Patterson catheter decompresses urinary bladder. There appears to be present within the nondependent portion of the urinary bladder. Genitourinary structures: Uterus and ovaries are not identified. Osseous structures: No suspicious lytic or sclerotic lesions. IMPRESSIONS: 1. Aorta, iliac, femoral and popliteal vessels appear patent. 2. Trifurcation vessels taper and attenuate through the calf regions. Right trifurcation vessels are lost within the mid right calf region. Left peroneal artery is loss in the mid to distal calf and the left anterior tibial artery is lost near the level of the ankle.
--- NOTE | 2022-10-27 16:48 | P.PN ---
Subjective Progress Note Date: 10/27/22 Principal diagnosis: UTI and bacteremia Patient is a 81-year-old female with a past medical history significant for atrial fibrillation heart failure with dementia hyperlipidemia renal disease patient was brought into the ER for evaluation of hypoxemia and mental status changes, patient did have a positive UA concerning for UTI, positive blood culture was staph epi likely contamination On today's evaluation that is 10/27/2022, the patient remains to be afebrile the patient is breathing comfortably on room air, patient overall is not good historian and did not provide any history, denied any active symptoms to me no vomiting or diarrhea has been reported Objective - Vital Signs Vital signs: Vital Signs Temp 98.1 F 10/27/22 11:46 Pulse 81 10/27/22 11:46 Resp 18 10/27/22 11:46 BP 123/75 10/27/22 11:46 Pulse Ox 97 10/27/22 11:46 FiO2 21 10/27/22 08:28 Intake & Output 10/26/22 10/27/22 10/27/22 18:59 06:59 18:59 Output Total 103 500 Balance -103 -500 Weight 68.5 kg Output: Urine 100 500 Emesis 3 Other: Voiding Method Indwelling Catheter Indwelling Catheter Indwelling Catheter - Exam GENERAL DESCRIPTION: An elderly female lying in bed in no distress RESPIRATORY SYSTEM: Unlabored breathing , decreased breath sounds at bases HEART: S1 S2 regular rate and rhythm , ABDOMEN: Soft , no tenderness EXTREMITIES: No edema feet - Labs CBC & Chem 7: 10/27/22 12:10 10/27/22 12:10 Labs: Abnormal Lab Results - Last 24 Hours (Table) 10/27/22 10/27/22 Range/Units 12:10 12:10 WBC 16.4 H (3.8-10.6) k/uL MCHC 30.9 L (31.0-37.0) g/dL RDW 17.3 H (11.5-15.5) % Plt Count 143 L (150-450) k/uL Neutrophils # 15.2 H (1.3-7.7) k/uL Lymphocytes # 0.2 L (1.0-4.8) k/uL Carbon Dioxide 31 H (22-30) mmol/L BUN 26 H (7-17) mg/dL Creatinine 1.08 H (0.52-1.04) mg/dL Glucose 104 H (74-99) mg/dL Total Bilirubin 1.5 H (0.2-1.3) mg/dL AST 40 H (14-36) U/L Alkaline Phosphatase 148 H (38-126) U/L Albumin 3.0 L (3.5-5.0) g/dL Microbiology - Last 24 Hours (Table) 10/24/22 15:36 Urine Culture - Preliminary Urine,Voided Gram Neg Bacilli 10/21/22 16:40 Blood Culture - Preliminary Blood No Growth after 120 hours Assessment and Plan (1) Positive blood culture Current Visit: Yes Status: Acute Code(s): R78.81 - BACTEREMIA SNOMED Code(s): 169348457 (2) UTI (urinary tract infection) Current Visit: Yes Status: Acute Code(s): N39.0 - URINARY TRACT INFECTION, SITE NOT SPECIFIED SNOMED Code(s): 68622743 Plan: 1patient with a positive blood culture with gram-positive cocci with a question of possible coagulase-negative staph in skin contaminant as the patient clinically do not have any disease to go along with it has been finalized and staph epi likely skin contamination no need for vancomycin. 2patient did have a positive UA and some mental status changes concern for possible UTI, urine culture are currently growing gram-negative with ID and sensitivity currently pending, the patient to continue with Rocephin while waiting for the cultures to finalize Time with Patient: Less than 30
--- NOTE | 2022-10-27 18:30 | P.PN ---
Subjective Progress Note Date: 10/27/22 Hospital course: Patient is a very pleasant 81-year-old female with an extensive cardiovascular history consistent with cardiomyopathy, systolic heart failure, valvular heart disease, chronic atrial fibrillation, and dementia. She presented to the hospital from [facility] on 10/21/22 after being reportedly found to be hypoxic with increased confusion. Patient underwent full evaluation. EKG was completed showing atrial fibrillation at 82 bpm with no noted T-wave or ST abnormalities showing no signs of acute ischemia upon personal review and interpretation. Chest x-ray revealing similar cardiomegaly with pulmonary vascular congestion and bilateral pleural effusions. Labs completed and reviewed. CBC unremarkable. BMP revealing slightly elevated renal function with BUN of 34, creatinine 1.15, and GFR 45. Liver profile revealing hyperbilirubinemia with elevated total bili of 2.7 and elevated liver enzymes with ALT of 45 and alkaline phosphatase of 147. Troponin negative at less than 0.012 and pro-BMP 2910. Urinalysis positive for infection. Patient was admitted under our services with consultation to palliative care for discussion on the palliative care versus hospice care. Palliative care discussed plan with patient's son, patient's son is reportedly declining hospice services at this time and would like to continue with full treatment for his mother. Physical exam: Patient seen and fully evaluated at bedside. Bilateral lower extremities cool to touch and newly discolored with purple discoloration of toes and distal plantar deficits of feet worse on left. Pedal and posterior tibial Pulses nonpalpable. Dopplers brought the bedside, bilateral posterior tibial pulses obtained unable to obtain dorsal pedal pulses on either foot. CBC evaluated, leukocytosis new with CBC completed 10/25/22 with WBC count of 4.96 today is 16.4. Vital signs reviewed and stable. General: Nontoxic Derm: Skin warm and dry, normal coloration for ethnicity. Head: Atraumatic, normocephalic and symmetric. Eyes: EOMs intact, no lid lag, and anicteric sclera Mouth: no lip lesions, mucus membranes moist Cardiovascular: Irregularly irregular, systolic murmur Lungs: Respirations even, regular, and unlabored on room air. Lungs diminished, no rhonchi, no rales, no wheezing, and no accessory muscle usage. Abdominal: soft, nontender to palpation, no guarding, no appreciable organomegaly Ext:: Movement and sensation intact No gross muscle atrophy, scant lower extremity edema, no contractures. Bilateral lower extremities cool to touch and newly discolored with purple discoloration of toes and distal plantar deficits of feet worse on left. Pedal and posterior tibial Pulses nonpalpable. Dopplers brought the bedside, bilateral posterior tibial pulses obtained unable to obtain dorsal pedal pulses on either foot. Neuro: Face symmetrical, no noted focal neuro deficits Psych: Patient alert to person only, confused to time, place, and situation. Follows limited commands. Assessment and Plan of Care: Cool discolored limbs concerning for lower extremity ischemia -Bilateral lower extremities cool to touch and newly discolored with purple discoloration of toes and distal plantar deficits of feet worse on left. Dopplers brought the bedside, bilateral posterior tibial pulses obtained unable to obtain dorsal pedal pulses on either foot. -Called and discussed with vascular surgery DEVULCANIZER [employer]. -Order placed for stat CT abdomen and pelvis with bilateral runoff. -Patient currently on Eliquis and aspirin, but per nursing documentation patient has been refusing medications. Called patient's son to further discuss/ Sepsis secondary to UTI Metabolic encephalopathy due to infectious process resulting from UTI History of dementia -Patient on day 6 of antibiotics, continue with Rocephin 2 g daily. -Urine culture preliminary result showing gram-negative bacilli Positive blood culture -Blood culture 1 out of 2 cultures is positive for Coagulase negative staph, believed to be skin contaminant however patient being treated for UTI and currently awaiting urine culture results. . -Patient to remain on on Rocephin 2 g IVPB every 24 hours at this time pending final urine culture results -Infectious disease following and reviewed documentation on chart, in agreement to hold off on any additional treatment with antibiotics recommending continued Rocephin pending urine culture results. Acute on chronic systolic congestive heart failure with previously known EF of 40% Acute hypoxic respiratory failure secondary to above, resolved after diuresis. Chronic atrial fibrillation Cardiovascular disease Hyperbilirubinemia, resolved Elevated liver enzymes, resolved Hypokalemia, resolved Hypomagnesemia, resolved -Palliative care following -Patient to continue with daily medication regimen consisting of amiodarone, Eliquis, Lasix, aspirin, atorvastatin, and metoprolol. CODE STATUS: DO NOT RESUSCITATE/DO NOT INTUBATE DVT prophylaxis: Eliquis Discussed with: RN, vascular surgery, and patient's son. Anticipated discharge date: Pending clinical course Anticipated discharge place: Hospice versus SNF Patient was seen independently by Nurse Pracitioner. This document was prepared using [employer] dictation software. Please allow for er rors in assistant program director, while rare they do occur. Felix Hasikns NP rendered care for this patient independently, reviewed the findings and plan as documented in the note above. I did not physically speak with or examine the patient on this date. Objective - Vital Signs Vital signs: Vital Signs Temp 98.3 F 10/27/22 07:10 Pulse 112 H 10/27/22 08:39 Resp 16 10/27/22 07:10 BP 106/78 10/27/22 07:10 Pulse Ox 94 L 10/27/22 08:28 FiO2 21 10/27/22 08:28 Intake & Output 10/26/22 10/27/22 10/27/22 18:59 06:59 18:59 Output Total 103 500 Balance -103 -500 Weight 68.5 kg Output: Urine 100 500 Emesis 3 Other: Voiding Method Indwelling Catheter Indwelling Catheter - Labs CBC & Chem 7: 10/29/22 12:36 10/29/22 12:36 Labs: Microbiology - Last 24 Hours (Table) 10/21/22 16:40 Blood Culture - Preliminary Blood No Growth after 120 hours
--- NOTE | 2022-10-27 20:03 | P.GSCN ---
History of Present Illness Consult date: 10/27/22 Reason for Consult: Hematuria, UTI Requesting physician: Felix Haskins History of present illness: The patient is an 81-year-old white female with a history of chronic dementia. She takes Eliquis for atrial fibrillation. She resides at [facility], and was admitted with acute hypoxic respiratory failure. This is her third hospitalization in the past month. Her son states that she has been treated for recurrent UTIs for the past year. CT scan of the abdomen and pelvis performed on 09/22/2022 showed the kidneys and bladder to be normal in appearance. She did not have a Patterson catheter at that time, and her son states that the catheter has been placed sometime after 10/04/2022. The current urine culture show gram- negative bacilli. She has been noted to have hematuria today. I am consulted for this reason. Review of Systems ROS unobtainable: due to mental status Past Medical History Past Medical History: Atrial Fibrillation, Heart Failure, Dementia, Hyperlipidemia, Memory Impairment, Pneumonia, Renal Disease, Thyroid Disorder Additional Past Medical History / Comment(s): metabolic encephalopathy; uti; skin cancer History of Any Multi-Drug Resistant Organisms: None Reported Past Surgical History: Unable to Obtain Past Anesthesia/Blood Transfusion Reactions: Unable to Obtain Past Psychological History: Schizoaffective Disorder Smoking Status: Unknown if ever smoked Past Alcohol Use History: Unable to Obtain Past Drug Use History: Unable to Obtain Medications and Allergies Home Medications Medication Instructions Recorded Confirmed Type Apixaban [Eliquis] 5 mg PO BID 09/19/22 10/21/22 History Aspirin EC [Ecotrin Low Dose] 81 mg PO DAILY 09/19/22 10/21/22 History Atorvastatin Calcium 20 mg PO HS 09/19/22 10/21/22 History Cholecalciferol [Vitamin D3 (25 25 mcg PO DAILY 09/19/22 10/21/22 History Mcg = 1000 Iu)] Cranberry Fruit Extract [Cranberry] 500 mg PO BID 09/19/22 10/21/22 History Ipratropium-Albuterol Nebulize 3 ml INHALATION RT-Q6H PRN 09/19/22 10/21/22 History [Duoneb 0.5 mg-3 mg/3 ml Soln] Lactulose 20 gm PO DAILY 09/19/22 10/21/22 History Sacubitril/Valsartan [Entresto 24 2 tab PO BID 09/19/22 10/21/22 History mg-26 mg Tablet] Acetaminophen Tab [Tylenol] 325 mg PO Q6HR PRN tab 09/23/22 10/21/22 Rx Torsemide [Demadex] 20 mg PO DAILY tab 09/23/22 10/21/22 Rx Amiodarone [Cordarone] 200 mg PO HS 10/10/22 10/21/22 History Famotidine [Pepcid] 20 mg PO BID 10/10/22 10/21/22 History LORazepam [Ativan] 0.5 mg PO Q6H PRN 10/10/22 10/21/22 History Mirtazapine [Remeron] 15 mg PO HS 10/10/22 10/21/22 History Pyridoxine HCl (Vitamin B6) 100 mg PO DAILY 10/10/22 10/21/22 History [Vitamin B-6] risperiDONE [RisperDAL] 0.25 mg PO BID 10/10/22 10/21/22 History Metoprolol Tartrate [Lopressor] 75 mg PO BID 10/21/22 10/21/22 History Allergies Allergy/AdvReac Type Severity Reaction Status Date / Time No Known Allergies Allergy Verified 10/21/22 13:21 Surgical - Exam Vital Signs Pulse Resp BP Pulse Ox 81 16 101/76 94 L 10/21/22 12:31 10/21/22 12:31 10/21/22 12:31 10/21/22 12:31 - General well developed, well nourished, no distress - Respiratory normal respiratory effort - Abdomen Abdomen: soft, non tender, no guarding, no rigid, no rebound - Psychiatric no oriented to time, no oriented to person, no oriented to place, no speech is normal, no memory intact, no other Results - Labs 10/27/22 12:10 10/27/22 12:10 Abnormal Lab Results - Last 24 Hours (Table) 10/27/22 10/27/22 Range/Units 12:10 12:10 WBC 16.4 H (3.8-10.6) k/uL MCHC 30.9 L (31.0-37.0) g/dL RDW 17.3 H (11.5-15.5) % Plt Count 143 L (150-450) k/uL Neutrophils # 15.2 H (1.3-7.7) k/uL Lymphocytes # 0.2 L (1.0-4.8) k/uL Carbon Dioxide 31 H (22-30) mmol/L BUN 26 H (7-17) mg/dL Creatinine 1.08 H (0.52-1.04) mg/dL Glucose 104 H (74-99) mg/dL Total Bilirubin 1.5 H (0.2-1.3) mg/dL AST 40 H (14-36) U/L Alkaline Phosphatase 148 H (38-126) U/L Albumin 3.0 L (3.5-5.0) g/dL Microbiology - Last 24 Hours (Table) 10/21/22 16:40 Blood Culture - Final Blood No Growth after 144 hours 10/24/22 15:36 Urine Culture - Preliminary Urine,Voided Gram Neg Bacilli Diabetes panel 10/27/22 Range/Units 12:10 Sodium 141 (137-145) mmol/L Potassium 4.2 (3.5-5.1) mmol/L Chloride 105 (98-107) mmol/L Carbon Dioxide 31 H (22-30) mmol/L BUN 26 H (7-17) mg/dL Creatinine 1.08 H (0.52-1.04) mg/dL Glucose 104 H (74-99) mg/dL Calcium 9.4 (8.4-10.2) mg/dL AST 40 H (14-36) U/L ALT 28 (4-34) U/L Alkaline Phosphatase 148 H (38-126) U/L Total Protein 6.7 (6.3-8.2) g/dL Albumin 3.0 L (3.5-5.0) g/dL Calcium panel 10/27/22 Range/Units 12:10 Calcium 9.4 (8.4-10.2) mg/dL Albumin 3.0 L (3.5-5.0) g/dL Pituitary panel 10/27/22 Range/Units 12:10 Sodium 141 (137-145) mmol/L Potassium 4.2 (3.5-5.1) mmol/L Chloride 105 (98-107) mmol/L Carbon Dioxide 31 H (22-30) mmol/L BUN 26 H (7-17) mg/dL Creatinine 1.08 H (0.52-1.04) mg/dL Glucose 104 H (74-99) mg/dL Calcium 9.4 (8.4-10.2) mg/dL Adrenal panel 10/27/22 Range/Units 12:10 Sodium 141 (137-145) mmol/L Potassium 4.2 (3.5-5.1) mmol/L Chloride 105 (98-107) mmol/L Carbon Dioxide 31 H (22-30) mmol/L BUN 26 H (7-17) mg/dL Creatinine 1.08 H (0.52-1.04) mg/dL Glucose 104 H (74-99) mg/dL Calcium 9.4 (8.4-10.2) mg/dL Total Bilirubin 1.5 H (0.2-1.3) mg/dL AST 40 H (14-36) U/L ALT 28 (4-34) U/L Alkaline Phosphatase 148 H (38-126) U/L Total Protein 6.7 (6.3-8.2) g/dL Albumin 3.0 L (3.5-5.0) g/dL - Imaging CT scan - abdomen: report reviewed, image reviewed CT scan - pelvis: report reviewed, image reviewed Assessment and Plan Assessment: The patient has developed hematuria today. Potential causes include the indwelling Patterson catheter, UTI, and anticoagulation. It is unclear why the patient has a Patterson catheter. (1) UTI (urinary tract infection) Current Visit: Yes Status: Acute Code(s): N39.0 - URINARY TRACT INFECTION, SITE NOT SPECIFIED SNOMED Code(s): 04011505 (2) Gross hematuria Current Visit: Yes Status: Acute Code(s): R31.0 - GROSS HEMATURIA SNOMED Code(s): 439772452 Plan: Continue antibiotics, pending the urine culture result. The Patterson catheter will be removed tomorrow, and the catheter should be replaced only if she develops urinary retention. Upon discharge, after appropriate antibiotic therapy, it would be reasonable to treat her with Hiprex and cranberry tablets in an attempt to reduce her UTI risk. Time with Patient: Greater than 30
[2022-10-27] MEDS: AMIODARONE 200 MG TAB PO SCH (21:00)
[2022-10-27] MEDS: ATORVASTATIN 20 MG TAB PO SCH (21:00)
[2022-10-27] MEDS: MIRTAZAPINE 15 MG TAB PO SCH (21:00)
[2022-10-28] MEDS ORDERED: IPRATROPIUM-ALBUTEROL 3 ML NEB INHALATION PRN (08:00)
[2022-10-28] MEDS: IPRATROPIUM-ALBUTEROL 3 ML NEB INHALATION SCH ×4 (09:00→20:31)
--- NOTE | 2022-10-28 09:55 | P.PN ---
Subjective Progress Note Date: 10/28/22 Patient is seen and examined today as follow-up. Today patient is a little more alert, she was able to follow commands and wiggle her toes. She otherwise kept her eyes closed. Patient not answering any questions. Yesterday she underwent a CT angiogram abdominal aorta with runoff which reported aorta, iliac, femoral and popliteal vessels appear patent. Trifurcation vessels taper and attenuate through the calf regions. Right trifurcation vessels her loss within the mid right calf region. Left. He'll artery is lost in the mid to distal calf on the left anterior tibial arteries is lost near the level of the ankle. Objective - Vital Signs Vital signs: Vital Signs Temp 98.4 F 10/28/22 02:20 Pulse 67 10/28/22 08:00 Resp 16 10/28/22 08:00 BP 111/71 10/28/22 08:00 Pulse Ox 100 10/28/22 02:20 FiO2 21 10/27/22 08:28 Intake & Output 10/27/22 10/28/22 10/28/22 18:59 06:59 18:59 Intake Total 1000 250 Output Total 400 Balance 1000 -150 Weight 67.5 kg Intake: Intake, IV Titration 1000 Amount Sodium Chloride 0.9% 1, 1000 000 ml @ 999 mls/hr IV . Q1H1M ONE Rx#:[id number] Oral 250 Output: Urine 400 Other: Voiding Method Indwelling Catheter Indwelling Catheter Indwelling Catheter - Exam General appearance: The patient is lying in bed with her eyes closed, she responds to her name and followed simple commands. Appears in no acute distress. HET: Head is normocephalic and atraumatic. Neck: Supple. Extremities: Bilateral feet and toes pink, warm to the touch, patient able to wi ggle her toes. Good capillary refill. Neurological: The patient is lying in bed with her eyes closed, she responds to her name and followed simple commands. - Labs CBC & Chem 7: 10/27/22 12:10 10/27/22 12:10 Labs: Abnormal Lab Results - Last 24 Hours (Table) 10/27/22 10/27/22 Range/Units 12:10 12:10 WBC 16.4 H (3.8-10.6) k/uL MCHC 30.9 L (31.0-37.0) g/dL RDW 17.3 H (11.5-15.5) % Plt Count 143 L (150-450) k/uL Neutrophils # 15.2 H (1.3-7.7) k/uL Lymphocytes # 0.2 L (1.0-4.8) k/uL Carbon Dioxide 31 H (22-30) mmol/L BUN 26 H (7-17) mg/dL Creatinine 1.08 H (0.52-1.04) mg/dL Glucose 104 H (74-99) mg/dL Total Bilirubin 1.5 H (0.2-1.3) mg/dL AST 40 H (14-36) U/L Alkaline Phosphatase 148 H (38-126) U/L Albumin 3.0 L (3.5-5.0) g/dL Microbiology - Last 24 Hours (Table) 10/21/22 16:40 Blood Culture - Final Blood No Growth after 144 hours 10/24/22 15:36 Urine Culture - Preliminary Urine,Voided Gram Neg Bacilli Assessment and Plan Assessment: 1. Bilateral cold feet with discoloration, now improved 2. Acute hypoxemia 3. Congestive heart failure 4. Atrial fibrillation on eliquis 5. Cardiomyopathy 6. Chronic kidney disease Plan: CT angiogram aorta abdomen and pelvis with runoff reviewed per Dr. Her with three vessel run off. No indication for any vascular surgical intervention. Feet and toes now pink, warm. Likely related to hypoperfusion, possible vasoconstriction. Continue medical management. Thank you for this consultation, we will sign off at this time. The impression and plan of care has been dictated as directed. I performed a history and examination of this patient, discussed the same with the dictator. I agree with the dictator's note ,documented as a scribe. Any additional findings or plans will be noted.
--- NOTE | 2022-10-28 09:57 | P.PN ---
Subjective Progress Note Date: 10/28/22 Patient is quite confused this morning, trying to get out of bed, not responding to interview. Gen: awake, alert HEENT: normocephalic, atraumatic, good hearing acuity, moist mucous membranes Resp: good air exchange, breathing comfortably with no accessory muscle use CVS: good distal perfusion x 4, GI: soft, NTTP, ND : no SPT, no CVAT, roa catheter is present MSK: no pitting edema, no clubbing Neuro: non-focal, moving all extremities Psych: cooperative, euthymic mood Hospital course: Patient is a very pleasant 81-year-old female with an extensive cardiovascular history consistent with cardiomyopathy, systolic heart failure, valvular heart disease, chronic atrial fibrillation, and dementia. She presented to the hospital from [facility] on 10/21/22 after being reportedly found to be hypoxic with increased confusion. Patient underwent full evaluation. EKG was completed showing atrial fibrillation at 82 bpm with no noted T-wave or ST abnormalities showing no signs of acute ischemia upon personal review and interpretation. Chest x-ray revealing similar cardiomegaly with pulmonary vascular congestion and bilateral pleural effusions. Labs completed and reviewed. CBC unremarkable. BMP revealing slightly elevated renal function with BUN of 34, creatinine 1.15, and GFR 45. Liver profile revealing hyperbilirubinemia with elevated total bili of 2.7 and elevated liver enzymes with ALT of 45 and alkaline phosphatase of 147. Troponin negative at less than 0.012 and pro-BMP 2910. Urinalysis positive for infection. Patient was admitted under our services with consultation to palliative care for discussion on the palliative care versus hospice care. Palliative care discussed plan with patient's son, patient's son is reportedly declining hospice services at this time and would like to continue with full treatment for his mother. Assessment: Sepsis secondary to UTI Metabolic encephalopathy due to infectious process resulting from UTI Chronic Limb Ischemia Acute on chronic systolic congestive heart failure with previously known EF of 40% Acute hypoxic respiratory failure secondary to above, resolved after diuresis. Chronic atrial fibrillation CAD History of dementia Plan: Today, patient is afebrile, 102/64, heart rate 88, 100% on 2 L nasal cannula. Discussed with vascular surgery, patient's lower extremities are warm with good cap refill today, no surgical intervention warranted at this time Ordered CBC, basic metabolic panel, magnesium for tomorrow Continue ceftriaxone 2 g daily, last dose today Continue amiodarone 200 mg daily at bedtime, metoprolol 75 mg twice a day Continue duo nebs every 6 hours when necessary Continue aspirin 81 mg daily, Apixiban 5 mg twice a day Patient is DO NOT RESUSCITATE/DO NOT INTUBATE DVT prophylaxis covered with Apixiban Objective - Vital Signs Vital signs: Vital Signs Temp 98.4 F 10/28/22 02:20 Pulse 67 10/28/22 08:00 Resp 16 10/28/22 08:00 BP 111/71 10/28/22 08:00 Pulse Ox 100 10/28/22 02:20 FiO2 21 10/27/22 08:28 Intake & Output 10/27/22 10/28/22 10/28/22 18:59 06:59 18:59 Intake Total 1000 250 Output Total 400 Balance 1000 -150 Weight 67.5 kg Intake: Intake, IV Titration 1000 Amount Sodium Chloride 0.9% 1, 1000 000 ml @ 999 mls/hr IV . Q1H1M ONE Rx#:[id number] Oral 250 Output: Urine 400 Other: Voiding Method Indwelling Catheter Indwelling Catheter Indwelling Catheter - Labs CBC & Chem 7: 10/27/22 12:10 10/27/22 12:10 Labs: Abnormal Lab Results - Last 24 Hours (Table) 10/27/22 10/27/22 Range/Units 12:10 12:10 WBC 16.4 H (3.8-10.6) k/uL MCHC 30.9 L (31.0-37.0) g/dL RDW 17.3 H (11.5-15.5) % Plt Count 143 L (150-450) k/uL Neutrophils # 15.2 H (1.3-7.7) k/uL Lymphocytes # 0.2 L (1.0-4.8) k/uL Carbon Dioxide 31 H (22-30) mmol/L BUN 26 H (7-17) mg/dL Creatinine 1.08 H (0.52-1.04) mg/dL Glucose 104 H (74-99) mg/dL Total Bilirubin 1.5 H (0.2-1.3) mg/dL AST 40 H (14-36) U/L Alkaline Phosphatase 148 H (38-126) U/L Albumin 3.0 L (3.5-5.0) g/dL Microbiology - Last 24 Hours (Table) 10/21/22 16:40 Blood Culture - Final Blood No Growth after 144 hours 10/24/22 15:36 Urine Culture - Preliminary Urine,Voided Gram Neg Bacilli
--- NOTE | 2022-10-28 10:13 | P.PN ---
Subjective Progress Note Date: 10/28/22 Principal diagnosis: Hematuria The patient is an 81-year-old white female with a history of chronic dementia. She takes Eliquis for atrial fibrillation. She resides at [facility], and was admitted with acute hypoxic respiratory failure. This is her third hospitalization in the past month. Her son states that she has been treated for recurrent UTIs for the past year. CT scan of the abdomen and pelvis performed on 09/22/2022 showed the kidneys and bladder to be normal in appearance. She did not have a Patterson catheter at that time, and her son states that the catheter has been placed sometime after 10/04/2022. The current urine culture show gram- negative bacilli. She has been noted to have hematuria. 10/27 Potential causes include the indwelling Patterson catheter, UTI, and anticoagulation. It is unclear why the patient has a Patterson catheter. Continue antibiotics, pending the urine culture result. The Patterson catheter will be removed tomorrow, and the catheter should be replaced only if she develops urinary retention. Upon discharge, after appropriate antibiotic therapy, it would be reasonable to treat her with Hiprex and cranberry tablets in an attempt to reduce her UTI risk. Objective - Vital Signs Vital signs: Vital Signs Temp 98.4 F 10/28/22 02:20 Pulse 67 10/28/22 08:00 Resp 16 10/28/22 08:00 BP 111/71 10/28/22 08:00 Pulse Ox 100 10/28/22 02:20 FiO2 21 10/27/22 08:28 Intake & Output 10/27/22 10/28/22 10/28/22 18:59 06:59 18:59 Intake Total 1000 250 Output Total 400 Balance 1000 -150 Weight 67.5 kg Intake: Intake, IV Titration 1000 Amount Sodium Chloride 0.9% 1, 1000 000 ml @ 999 mls/hr IV . Q1H1M ONE Rx#:[id number] Oral 250 Output: Urine 400 Other: Voiding Method Indwelling Catheter Indwelling Catheter Indwelling Catheter - Exam General: Well developed, well nourished. No acute distress. Chronically ill appearing. HEENT: Head is atraumatic, normocephalic. Lungs: Respirations even and nonlabored. : Patterson catheter draining tea-colored urine Skin: Warm and dry Neurologic: non verbal, does not folow commands - Labs CBC & Chem 7: 10/27/22 12:10 10/27/22 12:10 Labs: Abnormal Lab Results - Last 24 Hours (Table) 10/27/22 10/27/22 Range/Units 12:10 12:10 WBC 16.4 H (3.8-10.6) k/uL MCHC 30.9 L (31.0-37.0) g/dL RDW 17.3 H (11.5-15.5) % Plt Count 143 L (150-450) k/uL Neutrophils # 15.2 H (1.3-7.7) k/uL Lymphocytes # 0.2 L (1.0-4.8) k/uL Carbon Dioxide 31 H (22-30) mmol/L BUN 26 H (7-17) mg/dL Creatinine 1.08 H (0.52-1.04) mg/dL Glucose 104 H (74-99) mg/dL Total Bilirubin 1.5 H (0.2-1.3) mg/dL AST 40 H (14-36) U/L Alkaline Phosphatase 148 H (38-126) U/L Albumin 3.0 L (3.5-5.0) g/dL Microbiology - Last 24 Hours (Table) 10/21/22 16:40 Blood Culture - Final Blood No Growth after 144 hours 10/24/22 15:36 Urine Culture - Preliminary Urine,Voided Gram Neg Bacilli Assessment and Plan Assessment: The patient is afebrile, vital signs are stable, and she is on room air. She is lying in bed, not very responsive, and unable to follow commands. Her Patterson catheter is draining tea-colored urine. We will remove Patterson catheter this morning for a voiding trial and check PVR. Patterson catheter should only be replaced if she develops urinary retention. Upon discharge, after appropriate antibiotic therapy, it would be reasonable to treat her with Hiprex and wallpaper scraper nberry tablets in an attempt to reduce her UTI risk. (1) Gross hematuria Current Visit: Yes Status: Acute Code(s): R31.0 - GROSS HEMATURIA SNOMED Code(s): 453216576 Plan: - Awaiting finalization of urine culture - Antibiotics per IDs recommendations - Remove Patterson catheter today for voiding trial - Check PVR Impression and plan of care have been directed as dictated by the signing physician. Aicha Hawkins nurse practitioner acting as scribe for signing physician. Aicha Hawkins [facility] Palliative Care/Urology Spectralink [id number] Email: [email or web address] I have personally seen and examined the patient, reviewed the documentation and agree with the assessment and plan as written. Number of minutes spent on the visit: 10. London Benavidez MD
[2022-10-28] MEDS: CHOLECALCIFEROL 25 MCG (1000 IU) TABLET PO SCH (10:20)
[2022-10-28] MEDS: ASPIRIN 81 MG PO SCH (10:20)
[2022-10-28] MEDS: FAMOTIDINE 20 MG TAB PO SCH (10:22)
[2022-10-28] MEDS: risperiDONE 0.25 MG TAB PO SCH ×2 (10:22→20:31)
[2022-10-28] MEDS: FUROSEMIDE 40 MG TAB PO SCH (10:23)
[2022-10-28] MEDS: METOPROLOL TARTRATE 25 MG TAB PO SCH ×4 (10:23→20:31)
[2022-10-28] MEDS: APIXABAN 5 MG TAB PO SCH ×2 (10:23→20:30)
[2022-10-28] MEDS: PANTOPRAZOLE 40 MG/10 ML VIAL IVP SCH (10:24)
[2022-10-28] MEDS: LACTULOSE 20 GM/30 ML CUP PO SCH ×2 (10:24→10:55)
[2022-10-28] MEDS ORDERED: bisacodyL 10 MG SUPP RECTAL PRN (10:48)
[2022-10-28] MEDS: PYRIDOXINE 50 MG TAB PO SCH (10:57)
[2022-10-28] MEDS: SENNOSIDES-DOCUSATE SODIUM 1 EACH TAB PO SCH ×2 (11:07→20:30)
--- NOTE | 2022-10-28 14:33 | XR ---
EXAMINATION TYPE: XR abdomen 1V DATE OF EXAM: 10/28/2022 1:55 PM INDICATION: Patient age:Female; 81 years old; Reason for study: constipation; COMPARISON: CT 09/22/2022 TECHNIQUE: One radiographic view of the abdomen was obtained. FINDINGS: Moderate stool projects over the pelvis. Colonic diverticula present. The bowel gas pattern is nonspecific without dilated loops of small or large bowel. There is no evidence for organomegaly or pneumoperitoneum. The osseous structures are intact. No abnormal calcifications are present. Fec al material and gas are demonstrated throughout the colon and rectum. IMPRESSION: 1. Moderate amount stool with colonic diverticula present. 2. Nonspecific bowel gas pattern without radiographic evidence for acute process.
--- NOTE | 2022-10-28 19:30 | P.PN ---
Subjective Progress Note Date: 10/28/22 Principal diagnosis: UTI and bacteremia Patient is a 81-year-old female with a past medical history significant for atrial fibrillation heart failure with dementia hyperlipidemia renal disease patient was brought into the ER for evaluation of hypoxemia and mental status changes, patient did have a positive UA concerning for UTI, positive blood culture was staph epi likely contamination On today's evaluation that is 10/28/2022, the patient continues to be afebrile the patient is breathing comfortably on room air, patient sleepy did not open her eyes and did not answer any question no vomiting or diarrhea has been reported Patterson cath that is scheduled to be discontinued per urology per the nursing staff Objective - Vital Signs Vital signs: Vital Signs Temp 98.4 F 10/28/22 02:20 Pulse 67 10/28/22 08:00 Resp 16 10/28/22 08:00 BP 111/71 10/28/22 08:00 Pulse Ox 100 10/28/22 02:20 FiO2 21 10/27/22 08:28 Intake & Output 10/27/22 10/28/22 10/28/22 18:59 06:59 18:59 Intake Total 1000 250 Output Total 400 Balance 1000 -150 Weight 67.5 kg Intake: Intake, IV Titration 1000 Amount Sodium Chloride 0.9% 1, 1000 000 ml @ 999 mls/hr IV . Q1H1M ONE Rx#:[id number] Oral 250 Output: Urine 400 Other: Voiding Method Indwelling Catheter Indwelling Catheter Indwelling Catheter - Exam GENERAL DESCRIPTION: An elderly female lying in bed in no distress RESPIRATORY SYSTEM: Unlabored breathing , decreased breath sounds at bases HEART: S1 S2 regular rate and rhythm , ABDOMEN: Soft , no tenderness EXTREMITIES: No edema feet - Labs CBC & Chem 7: 10/27/22 12:10 10/27/22 12:10 Labs: Abnormal Lab Results - Last 24 Hours (Table) 10/27/22 10/27/22 Range/Units 12:10 12:10 WBC 16.4 H (3.8-10.6) k/uL MCHC 30.9 L (31.0-37.0) g/dL RDW 17.3 H (11.5-15.5) % Plt Count 143 L (150-450) k/uL Neutrophils # 15.2 H (1.3-7.7) k/uL Lymphocytes # 0.2 L (1.0-4.8) k/uL Carbon Dioxide 31 H (22-30) mmol/L BUN 26 H (7-17) mg/dL Creatinine 1.08 H (0.52-1.04) mg/dL Glucose 104 H (74-99) mg/dL Total Bilirubin 1.5 H (0.2-1.3) mg/dL AST 40 H (14-36) U/L Alkaline Phosphatase 148 H (38-126) U/L Albumin 3.0 L (3.5-5.0) g/dL Microbiology - Last 24 Hours (Table) 10/24/22 15:36 Urine Culture - Final Urine,Voided Enterococcus faecium VRE Escherichia coli 10/21/22 16:40 Blood Culture - Final Blood No Growth after 144 hours Assessment and Plan (1) Positive blood culture Current Visit: Yes Status: Acute Code(s): R78.81 - BACTEREMIA SNOMED Cod e(s): 973582306 (2) UTI (urinary tract infection) Current Visit: Yes Status: Acute Code(s): N39.0 - URINARY TRACT INFECTION, SITE NOT SPECIFIED SNOMED Code(s): 58130202 Plan: 1patient with a positive blood culture with gram-positive cocci with a question of possible coagulase-negative staph in skin contaminant as the patient clinic ally do not have any disease to go along with it has been finalized and staph epi likely skin contamination no need for vancomycin. 2patient did have a positive UA and some mental status changes concern for possible UTI, however the patient urine culture did grew multidrug resistant VRE and he has been E. coli and a question of possible Patterson colonization with the Patterson catheter being discontinued today I did ask nursing staff to obtain a clean-catch sample of urine after the Patterson catheter discontinued via straight cath, which if also positive may consider antibiotic otherwise discontinue Ro cephin and monitor the patient closely off antibiotic therapy Time with Patient: Less than 30
[2022-10-28] MEDS: ATORVASTATIN 20 MG TAB PO SCH (20:30)
[2022-10-28] MEDS: AMIODARONE 200 MG TAB PO SCH (20:30)
[2022-10-28] MEDS: MIRTAZAPINE 15 MG TAB PO SCH (20:31)
[2022-10-29 01:45] LABS: Appearance,Urine Cloudy (Clear); Bacteria,Urine Rare /hpf; Bilirubin,Urine Negative (Negative); Blood,Urine Large (Negative); Budding Yeast,Urine Few /hpf; Color,Urine Yellow; Glucose,Urine (UA) Negative (Negative); Hyaline Casts,Urine 61 /lpf (0-2); Ketones,Urine Negative (Negative); Leukocyte Esterase,Urine Small (Negative); Mucus,Urine Rare /hpf; Nitrite,Urine Negative (Negative); PH, Urine 5.5 (5.0-8.0); Protein,Urine Trace (Negative); RBC,Urine >182 /hpf (0-5); Specific Gravity,Urine 1.028 (1.001-1.035); Squamous Epithelial Cell,Urine 46 /hpf (0-4); Urobilinogen,Urine <2.0 mg/dL (<2.0); WBC,Urine 11 /hpf (0-5)
[2022-10-29] MEDS: IPRATROPIUM-ALBUTEROL 3 ML NEB INHALATION SCH ×3 (08:13→15:33)
[2022-10-29 08:40] VITALS: TEMP 94.3
[2022-10-29] MEDS ORDERED: polyethylene glycoL 3350 17 GM POWD.PACK PO SCH (09:00)
[2022-10-29] MEDS: APIXABAN 5 MG TAB PO SCH (11:19)
[2022-10-29] MEDS: ASPIRIN 81 MG PO SCH (11:19)
[2022-10-29] MEDS: CHOLECALCIFEROL 25 MCG (1000 IU) TABLET PO SCH (11:19)
[2022-10-29] MEDS: METOPROLOL TARTRATE 25 MG TAB PO SCH (11:20)
[2022-10-29] MEDS: FUROSEMIDE 40 MG TAB PO SCH (11:20)
[2022-10-29] MEDS: PANTOPRAZOLE 40 MG/10 ML VIAL IVP SCH (11:20)
[2022-10-29] MEDS: FAMOTIDINE 20 MG TAB PO SCH (11:20)
[2022-10-29] MEDS: LACTULOSE 20 GM/30 ML CUP PO SCH (11:20)
[2022-10-29] MEDS: SENNOSIDES-DOCUSATE SODIUM 1 EACH TAB PO SCH (11:21)
[2022-10-29] MEDS: risperiDONE 0.25 MG TAB PO SCH (11:21)
[2022-10-29] MEDS: PYRIDOXINE 50 MG TAB PO SCH (11:30)
--- NOTE | 2022-10-29 12:33 | P.DS ---
Providers Date of admission: 10/21/22 16:10 Expected date of discharge: 10/29/22 Attending physician: Teresa Rm DO Consults: 10/22/22 07:31 Consult to Palliative Care Routine Consulting Provider: Aicha Hawkins Consult Reason/Comments: palliative vs hospice Do you want consulting provider notified?: Yes 10/23/22 10:01 Consult Physician Routine Consulting Provider: Julia Mclean Consult Reason/Comments: Positive blood cultures Do you want consulting provider notified?: Yes 10/27/22 07:57 Consult Physician Routine Consulting Provider: Stevo Spencer Consult Reason/Comments: hematuria, chronic roa on Eliquis Do you want consulting provider notified?: Yes Primary care physician: Kristi Moctezuma DO Hospital Course: Assessment: Sepsis secondary to UTI Metabolic encephalopathy due to infectious process resulting from UTI Chronic Limb Ischemia Acute on chronic systolic congestive heart failure with previously known EF of 40% Acute hypoxic respiratory failure secondary to above, resolved after diuresis. Chronic atrial fibrillation CAD History of dementia Hospital course: Patient is a very pleasant 81-year-old female with an extensive cardiovascular history consistent with cardiomyopathy, systolic heart failure, valvular heart disease, chronic atrial fibrillation, and dementia. She presented to the hospital from [facility] on 10/21/22 after being reportedly found to be hypoxic with increased confusion. Patient underwent full evaluation. EKG was completed showing atrial fibrillation at 82 bpm with no noted T-wave or ST abnormalities showing no signs of acute ischemia upon personal review and interpretation. Chest x-ray revealing similar cardiomegaly with pulmonary vascular congestion and bilateral pleural effusions. Labs completed and reviewed. CBC unremarkable. BMP revealing slightly elevated renal function with BUN of 34, creatinine 1.15, and GFR 45. Liver profile revealing hyperbilirubinemia with elevated total bili of 2.7 and elevated liver enzymes with ALT of 45 and alkaline phosphatase of 147. Troponin negative at less than 0.012 and pro-BMP 2910. Urinalysis positive for infection. Patient was admitted under our services with consultation to palliative care for discussion on the palliative care versus hospice care. Palliative care discussed plan with patient's son, patient's son is reportedly declining hospice services at this time and would like to continue with full treatment for his mother. Patient was treated with ceftriaxone for urinary tract infection, infectious disease was consulted for recurrent urinary tract infections. Urology was consulted for urinary retention requiring Roa catheter. Patient underwent trial of void with Roa catheter removal, was discharged without Roa catheter. After goals of care discussion with the patient's son, patient's on opted against hospice at this time. [facility] methen[facility] for UTI prophylaxis. I spent 40 minutes coordinating this discharge on 10/29 Gen: awake, alert HEENT: normocephalic, atraumatic, good hearing acuity, moist mucous membranes Resp: good air exchange, breathing comfortably with no accessory muscle use CVS: good distal perfusion x 4, GI: soft, NTTP, ND : no SPT, no CVAT, roa catheter is present MSK: no pitting edema, no clubbing Neuro: non-focal, moving all extremities Psych: cooperative, euthymic mood Patient Condition at Discharge: Fair Plan - Discharge Summary New Discharge Prescriptions: New polyethylene glycoL 3350 [Miralax] 17 gm PO DAILY packet Sennosides-Docusate Sodium [Senokot-S] 1 each PO BID tab bisacodyL [Dulcolax] 10 mg RECTAL DAILY PRN suppositor PRN Reason: Constipation Methenamine Hippurate [Hiprex] 1 gm PO BID #60 tab Furosemide [Lasix] 40 mg PO DAILY tab Continue Cranberry Fruit Extract [Cranberry] 500 mg PO BID Cholecalciferol [Vitamin D3 (25 Mcg = 1000 Iu)] 25 mcg PO DAILY Atorvastatin Calcium 20 mg PO HS Ipratropium-Albuterol Nebulize [Duoneb 0.5 mg-3 mg/3 ml Soln] 3 ml INHALATION RT-Q6H PRN PRN Reason: Shortness Of Breath risperiDONE [RisperDAL] 0.25 mg PO BID Mirtazapine [Remeron] 15 mg PO HS Famotidine [Pepcid] 20 mg PO BID Amiodarone [Cordarone] 200 mg PO HS Apixaban [Eliquis] 5 mg PO BID Lactulose 20 gm PO DAILY Aspirin EC [Ecotrin Low Dose] 81 mg PO DAILY Acetaminophen Tab [Tylenol] 325 mg PO Q6HR PRN tab PRN Reason: Fever And/ Or Pain Pyridoxine HCl (Vitamin B6) [Vitamin B-6] 100 mg PO DAILY LORazepam [Ativan] 0.5 mg PO Q6H PRN PRN Reason: Agitation/Anxiety/Agressive Metoprolol Tartrate [Lopressor] 75 mg PO BID Discontinued Torsemide [Demadex] 20 mg PO DAILY tab Sacubitril/Valsartan [Entresto 24 mg-26 mg Tablet] 2 tab PO BID Discharge Medication List Apixaban [Eliquis] 5 mg PO BID 09/19/22 [History] Aspirin EC [Ecotrin Low Dose] 81 mg PO DAILY 09/19/22 [History] Atorvastatin Calcium 20 mg PO HS 09/19/22 [History] Cholecalciferol [Vitamin D3 (25 Mcg = 1000 Iu)] 25 mcg PO DAILY 09/19/22 [History] Cranberry Fruit Extract [Cranberry] 500 mg PO BID 09/19/22 [History] Ipratropium-Albuterol Nebulize [Duoneb 0.5 mg-3 mg/3 ml Soln] 3 ml INHALATION RT-Q6H PRN 09/19/22 [History] Lactulose 20 gm PO DAILY 09/19/22 [History] Acetaminophen Tab [Tylenol] 325 mg PO Q6HR PRN tab 09/23/22 [Rx] Amiodarone [Cordarone] 200 mg PO HS 10/10/22 [History] Famotidine [Pepcid] 20 mg PO BID 10/10/22 [History] LORazepam [Ativan] 0.5 mg PO Q6H PRN 10/10/22 [History] Mirtazapine [Remeron] 15 mg PO HS 10/10/22 [History] Pyridoxine HCl (Vitamin B6) [Vitamin B-6] 100 mg PO DAILY 10/10/22 [History] risperiDONE [RisperDAL] 0.25 mg PO BID 10/10/22 [History] Metoprolol Tartrate [Lopressor] 75 mg PO BID 10/21/22 [History] Furosemide [Lasix] 40 mg PO DAILY tab 10/29/22 [Rx] Methenamine Hippurate [Hiprex] 1 gm PO BID #60 tab 10/29/22 [Rx] Sennosides-Docusate Sodium [Senokot-S] 1 each PO BID tab 10/29/22 [Rx] bisacodyL [Dulcolax] 10 mg RECTAL DAILY PRN suppositor 10/29/22 [Rx] polyethylene glycoL 3350 [Miralax] 17 gm PO DAILY packet 10/29/22 [Rx] Follow up Appointment(s)/Referral(s): Kristi Moctezuma DO [Primary Care Provider] - 1-2 days Discharge Disposition: TRANSFER TO SNF/ECF
[2022-10-29 12:55] LABS: Anisocytosis Slight; Basophils % (A) 0 %; Eosinophils # (A) 0.2 k/uL (0-0.7); Eosinophils % (A) 3 %; HCT 35.1 % (34.0-46.0); HGB 11.7 gm/dL (11.4-16.0); Hypochromasia Moderate; Lymphocytes # (A) 0.7 k/uL (1.0-4.8); Lymphocytes % (A) 12 %; MCH 29.3 pg (25.0-35.0); MCHC 33.5 g/dL (31.0-37.0); MCV 87.4 fL (80.0-100.0); Mean Platelet Volume 10.5; Monocytes # (A) 0.4 k/uL (0-1.0); Monocytes % (A) 7 %; Neutrophils # (A) 4.4 k/uL (1.3-7.7); Neutrophils % (A) 76 %; Platelet Count 124 k/uL (150-450); RBC 4.01 m/uL (3.80-5.40); RDW 17.4 % (11.5-15.5); WBC 5.8 k/uL (3.8-10.6)
[2022-10-29] MEDS ORDERED: bisacodyL 10 MG SUPP RECTAL STA (13:24)
[2022-10-29 13:26] LABS: African American GFR (CKD) 71 (>60 ml/min/1.73 sqM); Anion Gap 2 mmol/L; Blood Urea Nitrogen 27 mg/dL (7-17); Calcium 9.3 mg/dL (8.4-10.2); Carbon Dioxide 34 mmol/L (22-30); Chloride 103 mmol/L (98-107); Glucose 83 mg/dL (74-99); Non-African American GFR(CKD) 62 (>60 ml/min/1.73 sqM); Sodium 139 mmol/L (137-145)
[2022-10-29 13:31] LABS: Potassium 3.8 mmol/L (3.5-5.1)
[2022-10-29 13:32] LABS: Magnesium 1.8 mg/dL (1.6-2.3)
[2022-10-29 14:32] VITALS: BP 101/72; PULSE 63; RESP 14
--- NOTE | 2022-10-29 15:10 | P.PN ---
Subjective Progress Note Date: 10/29/22 Principal diagnosis: UTI and bacteremia Patient is a 81-year-old female with a past medical history significant for atrial fibrillation heart failure with dementia hyperlipidemia renal disease patient was brought into the ER for evaluation of hypoxemia and mental status changes, patient did have a positive UA concerning for UTI, positive blood culture was staph epi likely contamination On today's evaluation that is 10/29/2022, the patient remains to be afebrile, the patient is breathing comfortably on room air, patient is sleepy did not open her eyes and did not answer any question no vomiting or diarrhea has been reported by the nursing staff Objective - Vital Signs Vital signs: Vital Signs Temp 94.3 F L 10/29/22 07:45 Pulse 96 10/29/22 07:45 Resp 19 10/29/22 07:45 BP 118/86 10/29/22 07:45 Pulse Ox 99 10/29/22 08:13 FiO2 21 10/27/22 08:28 Intake & Output 10/28/22 10/29/22 10/29/22 18:59 06:59 18:59 Intake Total 250 Output Total 700 0 Balance -700 250 0 Weight 66 kg Intake: Oral 250 Output: Urine 700 Uretheral (Patterson) 700 Post Void Residual 0 Other: Voiding Method Indwelling Catheter Diaper # Voids 1 1 1 # Bowel Movements 1 - Exam GENERAL DESCRIPTION: An elderly female lying in bed in no distress RESPIRATORY SYSTEM: Unlabored breathing , decreased breath sounds at bases HEART: S1 S2 regular rate and rhythm , ABDOMEN: Soft , no tenderness EXTREMITIES: No edema feet - Labs CBC & Chem 7: 10/29/22 12:36 10/29/22 12:36 Labs: Abnormal Lab Results - Last 24 Hours (Table) 10/29/22 Range/Units 00:39 Urine Appearance Cloudy H (Clear) Urine Protein Trace H (Negative) Urine Blood Large H (Negative) Ur Leukocyte Esterase Small H (Negative) Urine RBC >182 H (0-5) /hpf Urine WBC 11 H (0-5) /hpf Urine WBC Clumps Occasional H (None) /hpf Ur Squamous Epith Cells 46 H (0-4) /hpf Urine Bacteria Rare H (None) /hpf Hyaline Casts 61 H (0-2) /lpf Urine Mucus Rare H (None) /hpf Urine Yeast (Budding) Few H (None) /hpf Microbiology - Last 24 Hours (Table) 10/24/22 15:36 Urine Culture - Final Urine,Voided Enterococcus faecium VRE Escherichia coli Assessment and Plan (1) Positive blood culture Current Visit: Yes Status: Acute Code(s): R78.81 - BACTEREMIA SNOMED Code(s): 795234711 (2) UTI (urinary tract infection) Current Visit: Yes Status: Acute Code(s): N39.0 - URINARY TRACT INFECTION, SITE NOT SPECIFIED SNOMED Code(s): 30280893 Plan: 1patient with a positive blood culture with gram-positive cocci with a question of possible coagulase-negative staph in skin contaminant as the patient clinically do not have any disease to go along with it has been finalized and staph epi likely skin contamination no need for vancomycin. 2patient did have a positive UA and some mental status changes concern for possible UTI, however the patient urine culture did grew multidrug resistant VRE and he has been E. coli and a question of possible Patterson colonization , the patient Patterson catheter was discontinued and repeat UA after discontinuation of Patterson with a straight cath only shows 11 WBC, more likely the earlier cultures are possible colonization of the Patterson catheter and do not need any specific antibiotic therapy Time with Patient: Less than 30
--- NOTE | 2022-10-30 17:59 | CDI ---
Documentation Clarification Form Date: 10/30/2022 5:44:15 PM From: Torie Mauro Phone: Admit Date: 10/21/2022 4:10:00 PM Patient Name: Wanda Dukes Visit Number: [id number] Discharge Date: 10/29/2022 6:00:00 PM ATTENTION: The Clinical Documentation Specialists (CDI) and [facility] Coding Staff appreciate your assistance in clarifying documentation. Please respond to the clarification below the line at the bottom and electronically sign. The CDI & [facility] Coding staff will review the response and follow-up if needed. Please note: Queries are made part of the Legal Health Record. If you have any questions, please contact the author of this message via ITS. Dr. Mar Ramos UTI is documented per ED Note and throughout the Progress Notes and patient has chronic Patterson. Additional clarification regarding the etiology of the UTI is requested. History/Risk Factors: 81yo F, Sepsisd/tESBL UTI, metabolic encephalopathy, BLE chronic limbischemia, ACSCHF, AHRF, chronic A Fib, CAD, severe dementia, possibleFoley colonization Clinical Indicators: Urinalysis: Escherichiacoli, EnterococcusfaeciumVRE Lab results: CBC unremarkable. BMPrevealing slightlyelevatedrenal function with BUN of 34, creatinine 1.15, and GFR 45. Liver profile revealinghyperbilirubinemiawith elevatedtotal bili of 2.7 andelevated liver enzymeswith ALT of 45 and alkaline phosphatase of 147. Troponinnegativeat less than 0.012 and pro-BMP 2910. Treatment: Patient was treated with ceftriaxone for UTI, infectious disease was consulted for recurrent UTI. Urology was consulted for urinary retentionrequiringFoley catheter. Patient underwent trial of void withFoley catheterremoval, was discharged withoutFoley catheter. Please clarify the etiology of the UTI, if known: [x] Patterson catheter [ ] UTI not related to catheter/urostomy [ ] Other condition, please specify [ ] Unable to determine (Template Last Revised: September 2020) MTDD
== END 2022-10-29 18:00 | DRG 698 ==
LOC: EC 12:27 → 6NMEDSUR 16:10 → 5NMEDONC 16:24
PROVIDERS: ADMIT Internal Medicine; ATTEND Internal Medicine
DX: T83.511A Infection and inflammatory reaction due to indwelling urethral catheter, initial encounter (principal); A41.51 Sepsis due to Escherichia coli [E. coli]; J96.01 Acute respiratory failure with hypoxia; G93.41 Metabolic encephalopathy; I50.23 Acute on chronic systolic (congestive) heart failure; I13.0 Hypertensive heart and chronic kidney disease with heart failure and stage 1 through stage 4 chronic kidney disease, or unspecified chronic kidney disease; I42.9 Cardiomyopathy, unspecified; I38 Endocarditis, valve unspecified; I48.20 Chronic atrial fibrillation, unspecified; Z16.12 Extended spectrum beta lactamase (ESBL) resistance; Z16.21 Resistance to vancomycin; I70.223 Atherosclerosis of native arteries of extremities with rest pain, bilateral legs; F03.C0 Unspecified dementia, severe, without behavioral disturbance, psychotic disturbance, mood disturbance, and anxiety; N18.9 Chronic kidney disease, unspecified; E78.5 Hyperlipidemia, unspecified; I25.10 Atherosclerotic heart disease of native coronary artery without angina pectoris; R53.81 Other malaise; Z66 Do not resuscitate; B95.2 Enterococcus as the cause of diseases classified elsewhere; E80.6 Other disorders of bilirubin metabolism; R31.0 Gross hematuria; E87.6 Hypokalemia; E83.42 Hypomagnesemia; R33.9 Retention of urine, unspecified; R32 Unspecified urinary incontinence; Y73.1 Therapeutic (nonsurgical) and rehabilitative gastroenterology and urology devices associated with adverse incidents; Z87.440 Personal history of urinary (tract) infections; Z79.899 Other long term (current) drug therapy; Z79.82 Long term (current) use of aspirin; Z79.01 Long term (current) use of anticoagulants; Z99.3 Dependence on wheelchair
CPT/HCPCS: 36410; 36415; 71045; 74018; 75635; 76937; 80048; 80053; 81001; 83605; 83735; 83880; 84100; 84443; 84484; 85025; 85027; 85610; 85730; 86140; 87040; 87077; 87086; 87186; 93005; 94640; 94760; 96361; 96374; 96375; 99285